=== PATIENT | female | born 1940 | race Caucasian/White ===

== ENCOUNTER 2020-04-03 10:20 | Emergency (ER) | payer MEDICARE, SELFPAY ==
--- NOTE | 2020-04-03 10:26 | ED.SOB ---
HPI - SOB/Dyspnea General Chief Complaint: Dyspnea Stated Complaint: SOB Time Seen by Provider: 04/03/20 10:26 Source: patient Mode of arrival: ambulatory Limitations: no limitations History of Present Illness MD elicited complaint: shortness of breath and cough Pertinent past history: pneumonia (dx with pneumonia on Sunday at [facility] started on zpack comleted no relief, negative COVID at that time) Onset (ago): day(s) (6 days agod) Context: recent illness Timing: constant Severity: mild Exacerbating factors: exertion Relieving factors: nothing Associated symptoms: cough Treatment prior to arrival: other (antibiotic) Related Data Home Medications Medication Instructions Recorded Confirmed anastrozole 1 mg tablet 1 mg PO DAILY 03/08/20 03/30/20 ascorbate calcium (vitamin C) 500 600 mg PO DAILY tab 03/08/20 03/30/20 mg tablet aspirin 81 mg tablet,delayed 81 mg PO DAILY 03/08/20 03/30/20 release biotin 5 mg capsule 5 mg PO DAILY 03/08/20 03/30/20 cholecalciferol (vitamin D3) 25 25 mcg PO DAILY 03/08/20 03/30/20 mcg (1,000 unit) tablet famotidine 10 mg tablet 10 mg PO DAILY 03/08/20 03/30/20 meclizine 25 mg tablet mg PO 03/08/20 03/30/20 simvastatin 10 mg tablet 10 mg PO BEDTIME 03/08/20 03/30/20 simvastatin 20 mg tablet 20 mg PO BEDTIME 03/08/20 03/30/20 Previous Rx's Medication Instructions Recorded diclofenac sodium 50 mg 50 mg PO DAILY PRN #90 cap 03/16/20 tablet,delayed release spironolactone 50 mg tablet 50 mg PO DAILY #90 tab 03/29/20 doxycycline hyclate 100 mg PO BID 7 Days #14 tab 04/03/20 Allergies Allergy/AdvReac Type Severity Reaction Status Date / Time acetaminophen [Percocet] Allergy Unknown Rash Verified 03/29/20 09:40 oxycodone [Percocet] Allergy Unknown Agitated Verified 03/29/20 09:40 latex Allergy Unknown rash Uncoded 03/11/20 08:59 Review of Systems Review of Systems: Constitutional : No Fever, No Chills ENT/Mouth : No sore throat, No Rhinorrhea, No Swallowing Difficulty Eyes: No Eye Pain, No Swelling, No Redness Cardiovascular : No Chest Pain, positive SOB, No Orthopnea, no Edema Respiratory : pos Cough, No Sputum, No Wheezing, positive dyspnea Gastrointestinal : No Nausea, No Vomiting, No Diarrhea, No abdominal Pain, No Hematochezia, No Melena Genitourinary : No Dysuria, No Urinary Frequency, No Hematuria Musculoskeletal : No joint pain, No Myalgias Skin : No Skin Lesions, No rash Neuro : No Weakness, No Numbness, No Dizziness, No Headache Psych : No Anxiety/Panic, No Depression Heme/Lymph: No Bruising, No Lymphadenopathy Endocrine : No Polyuria, No Polydipsia All other systems reviewed and are negative [facility] Past Medical History Attestation statement: The following information was validated with the patient. Medical History Breast cancer Hyperlipidemia Peripheral vascular disease Surgical History No history of previous surgery Family History Family History Mother No problems noted. Father No problems noted. Social History Social History Alcohol intake: never Smoking Status: Never smoker Smoked in Last 30 Days: No Use of substances other than those prescribed or required for medical reasons: No Advance Directives: No Advance Directives Information Provided: Yes Physical Exam Vital Signs: Vital Signs: Last Vital Signs Temp 98.1 F 04/03/20 15:25 Pulse 67 04/03/20 15:25 Resp 14 04/03/20 15:25 BP 137/74 04/03/20 15:25 Pulse Ox 96 04/03/20 15:25 Body Mass Index 18.8 Appearance: Alert. Oriented X3. No acute distress. Eyes: Pupils equal, round and reactive to light. ENT: Pharynx normal. Neck: Normal inspection. Neck supple. CVS: Normal heart rate and rhythm. Pulses normal. Respiratory: No respiratory distress. Breath sounds mild end exp wheezes R side, no rales, no resp distress, no pleuritic pain Abdomen: Soft and non-tender. Skin: Skin warm and dry. Normal skin color. Normal skin turgor. Extremities: No lower extremity edema. No calf ttp Neuro: Oriented X 3. No motor deficit. No sensory deficit. Course Course Course Narrative: given WBC count, CT chest for pneumonia ordered, labs, cultures, empiric ceftriaxone VS stable, no hypoxia, CT scan looks like COVID/atypical pneumonia, lactic negative, afebrile, no abdominal pain, negative urine just feels weak/malaise, only has elevated WBC no signs of sepsis other than WBC count but patient is not toxic, will start on doxy and send home with COVID precautions, patient has no GI or symptoms, no abdominal ttp no vomiting or diarrhea MDM - SOB/Dyspnea MDM Narrative Medical decision making narrative: 80 yo female with URI symptoms cough had CXR on Sunday dx with pneumonia on left side started on zpack negative rapid COVID at that time comes in still doesn't feel great and has cough - no resp distress, faint end exp wheezes, no hypoxia/tachycardia/CP to suggest PE at this time will obtain EKG, basic labs, CXR, COVID swab, albuterol INH Lab Data Result diagrams: 04/03/20 15:31 04/03/20 10:51 Labs: Lab Results 04/03/20 04/03/20 04/03/20 Range/Units 10:51 10:51 10:51 WBC 22.2 H (4.8-10.8) X10*3/uL RBC 4.50 (4.20-5.50) X10*6/uL Hgb 13.6 (12.0-16.0) g/dl Hct 41.2 (37-47) % MCV 91.6 (80-98) fL MCH 30.2 (27.0-33.0) pg MCHC 33.0 (31.0-35.0) g/dl RDW 12.0 (11.0-16.0) % Plt Count 249 (160-400) X10*3/uL MPV 10.6 (9.4-12.3) fL Immature Gran % (Auto) 0.5 H (0.0-0.4) % Neut % (Auto) 90.7 H (45-73) % Lymph % (Auto) 4.5 L (20-40) % [place] % (Auto) 3.8 (2-11) % Eos % (Auto) 0.3 (0-4) % Baso % (Auto) 0.2 (0-2) % Lymph # (Auto) 1.0 L (1.2-4.9) X10*3/uL [place] # (Auto) 0.8 (0.1-1.2) X10*3/uL Eos # (Auto) 0.1 (0.0-0.4) X10*3/uL Baso # (Auto) 0.0 (0.0-0.2) X10*3/uL Abs Immat Gran (auto) 0.10 H (0.00-0.03) X10*3/uL Absolute Neuts (auto) 20.2 H (2.0-8.3) X10*3/uL Absolute Nucleated RBC 0.000 (0.0-0.012) X10*3/uL Nucleated RBC % (auto) 0.0 (0.0-0.2) /100WBC Hold Blue Top SEE NOTE Sodium (135-145) mmol/L Potassium (3.3-5.1) mmol/l Chloride (96-108) mmol/L Carbon Dioxide (22-29) mmol/L Anion Gap (12-20) BUN (9-16) mg/dL Creatinine (0.5-1.4) mg/dL Estim Creat Clear Calc Estimated GFR Random Glucose (60-115) mg/dL Lactic Acid (0.5-2.0) mmol/L Calcium (8.4-10.2) mg/dL Troponin I High Sens (<3.5-17.0) ng/L Urine Color Urine Appearance Urine pH (5.0-8.0) Ur Specific Lynn (1.005-1.025) Urine Protein (NEG-TRACE) MG/DL Urine Glucose (UA) (NEG) MG/DL Urine Ketones (NEG) MG/DL Urine Blood (NEG) Urine Nitrite (NEG) Ur Leukocyte Esterase (NEG) Urine RBC (0) /HPF Urine WBC (0-4) /HPF Ur Squamous Epith Cells /LPF Urine Bacteria /LPF Coronavirus (PCR) NEGATIVE (Negative) Influenza Type A (PCR) NEGATIVE (Negative) Influenza Type B (PCR) NEGATIVE (Negative) RSV RNA Qual (PCR) NEGATIVE (Negative) 12/19/20 12/19/20 12/19/20 Range/Units 10:51 10:51 12:00 WBC (4.8-10.8) X10*3/uL RBC (4.20-5.50) X10*6/uL Hgb (12.0-16.0) g/dl Hct (37-47) % MCV (80-98) fL MCH (27.0-33.0) pg MCHC (31.0-35.0) g/dl RDW (11.0-16.0) % Plt Count (160-400) X10*3/uL MPV (9.4-12.3) fL Immature Gran % (Auto) (0.0-0.4) % Neut % (Auto) (45-73) % Lymph % (Auto) (20-40) % [place] % (Auto) (2-11) % Eos % (Auto) (0-4) % Baso % (Auto) (0-2) % Lymph # (Auto) (1.2-4.9) X10*3/uL [place] # (Auto) (0.1-1.2) X10*3/uL Eos # (Auto) (0.0-0.4) X10*3/uL Baso # (Auto) (0.0-0.2) X10*3/uL Abs Immat Gran (auto) (0.00-0.03) X10*3/uL Absolute Neuts (auto) (2.0-8.3) X10*3/uL Absolute Nucleated RBC (0.0-0.012) X10*3/uL Nucleated RBC % (auto) (0.0-0.2) /100WBC Hold Blue Top Sodium 139 (135-145) mmol/L Potassium 4.3 (3.3-5.1) mmol/l Chloride 106 (96-108) mmol/L Carbon Dioxide 26 (22-29) mmol/L Anion Gap 11 L (12-20) BUN 22 H (9-16) mg/dL Creatinine 0.84 (0.5-1.4) mg/dL Estim Creat Clear Calc 41.3 Estimated GFR > 60 Random Glucose 104 (60-115) mg/dL Lactic Acid 0.8 (0.5-2.0) mmol/L Calcium 9.3 (8.4-10.2) mg/dL Troponin I High Sens 3.9 (<3.5-17.0) ng/L Urine Color Urine Appearance Urine pH (5.0-8.0) Ur Specific Lynn (1.005-1.025) Urine Protein (NEG-TRACE) MG/DL Urine Glucose (UA) (NEG) MG/DL Urine Ketones (NEG) MG/DL Urine Blood (NEG) Urine Nitrite (NEG) Ur Leukocyte Esterase (NEG) Urine RBC (0) /HPF Urine WBC (0-4) /HPF Ur Squamous Epith Cells /LPF Urine Bacteria /LPF Coronavirus (PCR) (Negative) Influenza Type A (PCR) (Negative) Influenza Type B (PCR) (Negative) RSV RNA Qual (PCR) (Negative) 04/03/20 04/03/20 Range/Units 14:42 15:31 WBC 20.7 H (4.8-10.8) X10*3/uL RBC 4.33 (4.20-5.50) X10*6/uL Hgb 12.9 (12.0-16.0) g/dl Hct 39.5 (37-47) % MCV 91.2 (80-98) fL MCH 29.8 (27.0-33.0) pg MCHC 32.7 (31.0-35.0) g/dl RDW 12.1 (11.0-16.0) % Plt Count 235 (160-400) X10*3/uL MPV 10.5 (9.4-12.3) fL Immature Gran % (Auto) (0.0-0.4) % Neut % (Auto) (45-73) % Lymph % (Auto) (20-40) % [place] % (Auto) (2-11) % Eos % (Auto) (0-4) % Baso % (Auto) (0-2) % Lymph # (Auto) (1.2-4.9) X10*3/uL [place] # (Auto) (0.1-1.2) X10*3/uL Eos # (Auto) (0.0-0.4) X10*3/uL Baso # (Auto) (0.0-0.2) X10*3/uL Abs Immat Gran (auto) (0.00-0.03) X10*3/uL Absolute Neuts (auto) (2.0-8.3) X10*3/uL Absolute Nucleated RBC 0.000 (0.0-0.012) X10*3/uL Nucleated RBC % (auto) 0.0 (0.0-0.2) /100WBC Hold Blue Top Sodium (135-145) mmol/L Potassium (3.3-5.1) mmol/l Chloride (96-108) mmol/L Carbon Dioxide (22-29) mmol/L Anion Gap (12-20) BUN (9-16) mg/dL Creatinine (0.5-1.4) mg/dL Estim Creat Clear Calc Estimated GFR Random Glucose (60-115) mg/dL Lactic Acid (0.5-2.0) mmol/L Calcium (8.4-10.2) mg/dL Troponin I High Sens (<3.5-17.0) ng/L Urine Color YELLOW Urine Appearance HAZY Urine pH 5.5 (5.0-8.0) Ur Specific Lynn >= 1.030 H (1.005-1.025) Urine Protein NEG (NEG-TRACE) MG/DL Urine Glucose (UA) NEG (NEG) MG/DL Urine Ketones NEG (NEG) MG/DL Urine Blood NEG (NEG) Urine Nitrite NEG (NEG) Ur Leukocyte Esterase 1+ H (NEG) Urine RBC 0 (0) /HPF Urine WBC 0-2 (0-4) /HPF Ur Squamous Epith Cells TRACE /LPF Urine Bacteria NONE /LPF Coronavirus (PCR) (Negative) Influenza Type A (PCR) (Negative) Influenza Type B (PCR) (Negative) RSV RNA Qual (PCR) (Negative) ECG Data Attestation: I personally reviewed and interpreted this ECG as follows: ECG interpretation date: 04/03/20 ECG interpretation time: 10:54 Interpretation: Rate: 81 Rhythm: NSR Tell: normal Normal P waves. Normal WANG. Normal QRS complex. ST T wave : no MARCE, non specific qTC:normal prior studies: artifact, no acute ischemia The study has been interpreted contemporaneously by me. . Discharge Plan Discharge Clinical Impression: Pneumonia due to virus, COVID-19 Leukocytosis Qualifiers: Leukocytosis type: unspecified Qualified Code(s): D72.829 - Elevated white blood cell count, unspecified Patient Disposition: Home, Self-Care Instructions: Pneumonitis (ED) Additional Instructions: return to ED for any worsening symptoms or concerns YOUR COVID SWAB WAS NEGATIVE BUT YOUR CT SCAN LOOKS LIKE COVID, WILL START YOU ON ANTIBIOTICS, YOUR WHITE BLOOD CELL COUNT WAS ELEVATED BUT NO OTHER CONCERNING LABS AT THIS TIME PLEASE HAVE IT RECHECKED BY SUNDAY OR SUNDAY Prescriptions: New doxycycline hyclate 100 mg tablet 100 mg PO BID 7 Days Qty: 14 RF: 0 No Action diclofenac sodium 50 mg tablet,delayed release (DR/EC) 50 mg PO DAILY PRN (Reason: pain) Qty: 90 RF: 0 meclizine 25 mg tablet PO RF: 0 simvastatin 20 mg tablet 20 mg PO BEDTIME RF: 0 anastrozole 1 mg tablet 1 mg PO DAILY RF: 0 simvastatin 10 mg tablet 10 mg PO BEDTIME RF: 0 famotidine 10 mg tablet 10 mg PO DAILY RF: 0 aspirin 81 mg tablet,delayed release (DR/EC) 81 mg PO DAILY RF: 0 cholecalciferol (vitamin D3) 25 mcg (1,000 unit) tablet 25 mcg PO DAILY RF: 0 ascorbate calcium (vitamin C) 500 mg tablet 600 mg PO DAILY RF: 0 biotin 5 mg capsule 5 mg PO DAILY RF: 0 spironolactone 50 mg tablet 50 mg PO DAILY Qty: 90 RF: 1 Referrals: Armond Dasilva MD [Primary Care Provider] - 2 days (if not better)
[2020-04-03 10:31] VITALS: BP 158/88; PULSE 89; RESP 18; O2SAT 97; BMI 18.8
--- NOTE | 2020-04-03 10:33 | XR_ITS ---
EXAMINATION: XR CHEST CLINICAL INFORMATION: Dyspnea, cough. COMPARISON: 04/20/2015 chest radiographs. TECHNIQUE: Frontal view of the chest was obtained. FINDINGS: Subtle increased interstitial markings are seen bilaterally. No definitive focal infiltrate or pleural effusion is seen. The heart and mediastinal structures are unremarkable. Surgical clips overlie the left axilla without interval change. XR/XR chest 1V IMPRESSION: Subtle increased interstitial markings are nonspecific and may be secondary to differences in technique. A mild infectious/inflammatory process could not be completely excluded. No definitive focal infiltrate or pleural effusion. If symptoms persist or worsen, short-term repeat radiographic follow-up is recommended as clinically indicated to better assess for more acute change.
--- NOTE | 2020-04-03 10:33 | ECG_ITS ---
Test Reason : SOB Blood Pressure : / mmHG Vent. Rate : 081 BPM Atrial Rate : 081 BPM P-R Int : 180 ms QRS Dur : 074 ms QT Int : 368 ms P-R-T Axes : 037 017 033 degrees QTc Int : 427 ms Normal sinus rhythm Normal ECG No previous ECGs available Referred By: Nikki Ortez Electronically Signed By:Usama Benavides
[2020-04-03] MEDS: Albuterol Sulfate 90 MCG 8 GM INHALER 2 PUFF INHALE (10:49)
[2020-04-03 11:02] LABS: Basophils Percent Auto 0.2 % (0-2); Eosinophils Absolute Auto 0.1 X10*3/uL (0.0-0.4); Eosinophils Percent Auto 0.3 % (0-4); Hematocrit 41.2 % (37-47); Hemoglobin 13.6 g/dl (12.0-16.0); Imm Gran Pct Auto 0.5 % (0.0-0.4); Lymphocytes Percent Auto 4.5 % (20-40); MANUAL DIFF FLAG NO; Mean Corpuscular Hemoglobin 30.2 pg (27.0-33.0); Mean Corpuscular Volume 91.6 fL (80-98); Mean Platelet Volume 10.6 fL (9.4-12.3); Monocytes Absolute Auto 0.8 X10*3/uL (0.1-1.2); Monocytes Percent Auto 3.8 % (2-11); Neutrophils Absolute Auto 20.2 X10*3/uL (2.0-8.3); Neutrophils Percent Auto 90.7 % (45-73); Platelet Count 249 X10*3/uL (160-400); SCAN SMEAR FLAG 1; White Blood Count 22.2 X10*3/uL (4.8-10.8)
[2020-04-03 11:28] LABS: Anion Gap 11 (12-20); Blood Urea Nitrogen 22 mg/dL (9-16); Calcium 9.3 mg/dL (8.4-10.2); Carbon Dioxide 26 mmol/L (22-29); Chloride 106 mmol/L (96-108); Creatinine Clr Calc Pharmacy 41.3; Estimated Glomerular Filt Rate > 60; Glucose Random 104 mg/dL (60-115); Potassium 4.3 mmol/l (3.3-5.1); Sodium 139 mmol/L (135-145)
[2020-04-03 11:33] LABS: Troponin-I High Sensitivity 3.9 ng/L (<3.5-17.0)
[2020-04-03 11:39] LABS: Influenza A PCR NEGATIVE (Negative); Influenza B PCR NEGATIVE (Negative); Resp Syncy Virus RNA Qual PCR NEGATIVE (Negative); SARS COV2 PCR INHOUSE NEGATIVE (Negative)
[2020-04-03 11:53] VITALS: BP 107/66; PULSE 77; RESP 16; TEMP 36.8; O2SAT 95
--- NOTE | 2020-04-03 11:56 | CT_ITS ---
EXAMINATION: CT chest wo con. CLINICAL INFORMATION: Reason for Exam WBC count 22, cough COMPARISON: No prior CT available for comparison. TECHNIQUE: Multidetector volumetric CT imaging of the chest was done. Axial MIP volume rendering provided. Sagittal and coronal reformatted images were obtained. This CT examination was performed using dose optimization techniques as appropriate, variously including the following: *Automated exposure control *Adjustment of mA and/or kV according to patient size (this includes techniques or standardized protocols for targeted exams where dose is matched to indication/reason for exam; i.e. extremities or head) *Use of iterative reconstruction technique CONTRAST: Noncontrasted study. DLP: 192 mGy-cm FINDINGS: FREELANCE TRANSLATOR: LINES/TUBES: Director Personal reviewed, no lines. LUNGS: Lung parenchyma: Bilateral scattered patchy hazy groundglass interstitial peripheral and central opacities highly suspicious for interstitial pneumonia such as by atypical infection including possible Covid 19 infection. Lung nodules/masses: There is 5 mm nodule right upper lobe image 8 series 4. There is 8 x 6 mm nodule right upper lobe image 175 series 5. There are other smaller densities. AIRWAYS: Trachea and bronchi are normal. PLEURA: No pleural effusion or pneumothorax. MEDIASTINUM AND ROSALINDA: There are lymph nodes in the mediastinum and rosalinda difficult to visualize due to lack of contrast, these don't seem to be significantly enlarged. No mediastinal mass. VESSELS: HEART AND PERICARDIUM: Ascending aorta is 3.2 cm. Heart is normal in size. No pericardial effusion. Pulmonary arteries are normal in size. LOWER NECK, AXILLA: The visualized thyroid gland is unremarkable. No axillary mass or adenopathy. VISUALIZED ABDOMEN: Unremarkable CHEST WALL AND BONES: No chest wall mass. The visualized bony thorax is within normal limits. CT/CT chest wo con IMPRESSION: There are diffuse interstitial groundglass patchy opacities central and peripheral, the pattern is suspicious for possible interstitial pneumonitis including possible viral pneumonia/COVID 19 infection. Please correlate clinically. No suspicious lung mass. There are subcentimeter lung nodules largest 7 mm nodule. Various management parameters for solitary pulmonary nodules are in the literature. According to the UPDATED 2017 Fleischner Society recommendations, the advised follow-up imaging for a single 6-8 mm solid nodule is: LOW RISK PATIENT: CT at 6-12 months, then consider CT at 18-24 months. HIGH RISK PATIENT: CT at 6-12 months, then at 18-24 months. Reference: Guidelines for Management of Incidental Pulmonary Nodules Detected on CT Images: From the Fleischner Society 2017. (Referring physician staff is being called, to be alerted of the above findings and recommendations.) Tc
[2020-04-03 12:23] LABS: Lactic Acid 0.8 mmol/L (0.5-2.0)
[2020-04-03] MEDS: cefTRIAXone sodium 1 GM in 0.9 % Sodium Chloride 50 ML IV (12:35)
[2020-04-03 14:55] LABS: Glucose Urine UA NEG (NEG); Leukocyte Esterase Urine 1+ (NEG); Nitrite Urine NEG (NEG); PH 5.5 (5.0-8.0); Specific Gravity - Urine >= 1.030 (1.005-1.025); Urine Blood NEG (NEG); Urine Ketones NEG (NEG); Urine Protein NEG (NEG-TRACE)
[2020-04-03 15:11] LABS: Appearance Urine HAZY; Color Urine YELLOW
[2020-04-03 15:17] LABS: RBC Urine 0 /HPF (0); Squamous Epithelial Cell Urine TRACE /LPF; WBC Urine 0-2 /HPF (0-4)
[2020-04-03 15:25] VITALS: BP 137/74; PULSE 67; RESP 14; TEMP 36.7; O2SAT 96
[2020-04-03 15:37] LABS: Hematocrit 39.5 % (37-47); Hemoglobin 12.9 g/dl (12.0-16.0); Mean Corpuscular HGB Conc 32.7 g/dl (31.0-35.0); Mean Corpuscular Hemoglobin 29.8 pg (27.0-33.0); Mean Corpuscular Volume 91.2 fL (80-98); Mean Platelet Volume 10.5 fL (9.4-12.3); Platelet Count 235 X10*3/uL (160-400); Red Blood Count 4.33 X10*6/uL (4.20-5.50); Red Cell Distribution Width 12.1 % (11.0-16.0); White Blood Count 20.7 X10*3/uL (4.8-10.8)
[2020-04-03 16:06] LABS: D Dimer 610 NG/ML
[2020-04-03 16:07] LABS: Lactate Dehydrogenase 191 U/L (122-220)
[2020-04-03 16:29] LABS: Ferritin 105 ng/mL (10-250); Procalcitonin 0.06 ng/mL
== END 2020-04-03 16:38 | disposition home or self-care (01) ==
PROVIDERS: Emergency Provider Emergency Medicine; PCP Internal Medicine
DX: J12.89 Other viral pneumonia (principal); R06.00 Dyspnea, unspecified; D72.829 Elevated white blood cell count, unspecified; Z20.828 Contact with and (suspected) exposure to other viral communicable diseases
CPT/HCPCS: 0241U; 36415; 71045; 71250; 80048; 81001; 82728; 83605; 83615; 84145; 84484; 85025; 85027; 85379; 87040; 87086; 93005; 96365; 99284; J0696

== ENCOUNTER 2020-04-12 11:18 | Outpatient (REF) | payer MEDICARE, SELFPAY ==
--- NOTE | 2020-04-12 11:24 | XR_ITS ---
EXAMINATION: XR CHEST CLINICAL INFORMATION: Pneumonia COMPARISON: CT chest 04/03/2020 TECHNIQUE: 2 views of the chest were obtained. FINDINGS: The lungs are hyperinflated but no visible acute consolidation seen. There is ill-defined patchy opacity left midlung and left lower lobe. No evidence of pleural effusion. The heart size upper vascularity is normal. There are surgical shilpa along left lateral chest wall likely from later breast surgery. Moderate spondylosis seen throughout dorsal spine. No lytic process. XR/XR chest 2V IMPRESSION: Minimal patchy opacity left midlung and left lower lobe with mild tenting of left hemidiaphragm. Question residual changes from previous infection seen on previous CT chest 04/03/2020.
[2020-04-12 14:00] LABS: Hematocrit 46.9 % (37-47); Hemoglobin 14.7 g/dl (12.0-16.0); Mean Corpuscular HGB Conc 31.3 g/dl (31.0-35.0); Mean Corpuscular Hemoglobin 29.6 pg (27.0-33.0); Mean Corpuscular Volume 94.4 fL (80-98); Mean Platelet Volume 11.6 fL (9.4-12.3); Platelet Count 281 X10*3/uL (160-400); Red Blood Count 4.97 X10*6/uL (4.20-5.50); Red Cell Distribution Width 12.4 % (11.0-16.0); White Blood Count 9.5 X10*3/uL (4.8-10.8)
[2020-04-12 14:38] LABS: Anion Gap 15 (12-20); Blood Urea Nitrogen 24 mg/dL (9-16); Calcium 9.3 mg/dL (8.4-10.2); Carbon Dioxide 25 mmol/L (22-29); Chloride 103 mmol/L (96-108); Estimated Glomerular Filt Rate 59; Glucose Random 87 mg/dL (60-115); Potassium 4.2 mmol/l (3.3-5.1); Sodium 139 mmol/L (135-145)
== END 2020-04-12 11:19 | disposition home or self-care (01) ==
LOC: HO.HMGCX 11:18
PROVIDERS: PCP Internal Medicine; Visit Provider Internal Medicine
DX: Z20.828 Contact with and (suspected) exposure to other viral communicable diseases (principal); J18.9 Pneumonia, unspecified organism
CPT/HCPCS: 36415; 71046; 80048; 85027; 86140

== ENCOUNTER 2020-04-14 11:03 | Outpatient (REF) | payer MEDICARE, SELFPAY | END 2020-04-14 11:04 | disposition home or self-care (01) | LOC: HO.HMGCLDS 11:03 | PROVIDERS: PCP Internal Medicine; Visit Provider Internal Medicine | DX: Z20.828 Contact with and (suspected) exposure to other viral communicable diseases (principal) | CPT/HCPCS: U0003 ==

== ENCOUNTER 2020-04-26 15:51 | Outpatient (REF) | payer MEDICARE, SELFPAY ==
--- NOTE | 2020-04-26 16:04 | XR_ITS ---
EXAMINATION: XR CHEST CLINICAL INFORMATION: Follow-up pneumonia COMPARISON: Previous chest x-rays most recent 04/12/2020 TECHNIQUE: 2 views of the chest were obtained. FINDINGS: The cardiac and mediastinal contours are stable. The lungs are clear. There is no pleural effusion or pneumothorax. There are surgical clips in the left axilla. There are degenerative changes of the spine. XR/XR chest 2V IMPRESSION: Resolved infiltrates from March 2020. No evidence of pneumonia seen.
[2020-04-26 17:05] LABS: Hematocrit 45.2 % (37-47); Hemoglobin 14.2 g/dl (12.0-16.0); Mean Corpuscular HGB Conc 31.4 g/dl (31.0-35.0); Mean Corpuscular Hemoglobin 29.3 pg (27.0-33.0); Mean Corpuscular Volume 93.2 fL (80-98); Mean Platelet Volume 12.1 fL (9.4-12.3); Platelet Count 143 X10*3/uL (160-400); Red Blood Count 4.85 X10*6/uL (4.20-5.50); Red Cell Distribution Width 12.8 % (11.0-16.0); White Blood Count 5.8 X10*3/uL (4.8-10.8)
[2020-04-26 18:44] LABS: Erythrocyte Sedimentation Rate 6 MM/HR (0-20)
[2020-04-27 04:20] LABS: SARS COV2 IgG Negative (Negative)
== END 2020-04-26 15:52 | disposition home or self-care (01) ==
LOC: HO.LAB 15:51
PROVIDERS: PCP Internal Medicine; Visit Provider Internal Medicine
DX: Z20.822 Contact with and (suspected) exposure to COVID-19 (principal); Z11.9 Encounter for screening for infectious and parasitic diseases, unspecified
CPT/HCPCS: 36415; 71046; 85027; 85652; 86769

== ENCOUNTER → 2020-04-27 10:21 | Outpatient (BNVA) | payer MEDICARE, SELFPAY | PROVIDERS: PCP Internal Medicine; Visit Provider Surgery Vascular Surgery | DX: I73.9 Peripheral vascular disease, unspecified (principal) | CPT/HCPCS: 99202 ==

== ENCOUNTER 2020-05-13 09:48 | Outpatient (REF) | payer MEDICARE, SELFPAY ==
--- NOTE | 2020-05-13 | US_ITS ---
EXAMINATION: COLOR-FLOW DUPLEX IMAGING OF THE BILATERAL LOWER EXTREMITY ARTERIAL SYSTEM. VELOCITY MEASUREMENTS THROUGHOUT THE FEMORAL ARTERIES WITH ANKLE-BRACHIAL PERIPHERAL ARTERIAL TESTING. CLINICAL INFORMATION: This is an 80-year-old female with peripheral vascular disease. Hypertension. Hyperlipidemia. Interventional Radiologist: Derrick Nina M.D., F.S.I.R., F.A.C.R. RIGHT FEMORAL RUNOFF VELOCITIES: The right common femoral artery measures 113 cm/s and biphasic. The right profunda femoral artery is 54 cm/s and is triphasic. Right proximal superficial femoral artery measures 70 cm/s and triphasic. Mid superficial femoral artery is 70 cm/s and triphasic. Distal right superficial femoral artery measures 72 cm/s and is triphasic. Right popliteal velocity measures 39 cm/s and is triphasic. The posterior tibial artery velocity measures 75 cm/s and was triphasic. The right ankle-brachial index is 0.97. LEFT FEMORAL RUNOFF VELOCITIES: The left common femoral artery measures 53 cm/s and triphasic. The left profunda femoral artery is 54 cm/s and is biphasic. Left proximal superficial femoral artery measures 55 cm/s and biphasic. Mid superficial femoral artery is 46 cm/s and biphasic. Distal left superficial femoral artery measures 385 cm/s and is biphasic. Left popliteal velocity measures 281 cm/s and is biphasic. The posterior tibial artery velocity measures 36 cm/s and was biphasic. The left ankle-brachial index is 0.87. US/US DAVE complete IMPRESSION: 1. There is no right lower extremity hemodynamically significant stenosis. 2. There is a high-grade hemodynamically significant stenosis in the distal left superficial femoral artery.
--- NOTE | 2020-05-13 09:53 | US_ITS ---
EXAMINATION: COLOR-FLOW DUPLEX IMAGING OF THE BILATERAL LOWER EXTREMITY ARTERIAL SYSTEM. VELOCITY MEASUREMENTS THROUGHOUT THE FEMORAL ARTERIES WITH ANKLE-BRACHIAL PERIPHERAL ARTERIAL TESTING. CLINICAL INFORMATION: This is an 80-year-old female with peripheral vascular disease. Hypertension. Hyperlipidemia. Interventional Radiologist: Derrick Nina M.D., F.S.I.R., F.A.C.R. RIGHT FEMORAL RUNOFF VELOCITIES: The right common femoral artery measures 113 cm/s and biphasic. The right profunda femoral artery is 54 cm/s and is triphasic. Right proximal superficial femoral artery measures 70 cm/s and triphasic. Mid superficial femoral artery is 70 cm/s and triphasic. Distal right superficial femoral artery measures 72 cm/s and is triphasic. Right popliteal velocity measures 39 cm/s and is triphasic. The posterior tibial artery velocity measures 75 cm/s and was triphasic. The right ankle-brachial index is 0.97. LEFT FEMORAL RUNOFF VELOCITIES: The left common femoral artery measures 53 cm/s and triphasic. The left profunda femoral artery is 54 cm/s and is biphasic. Left proximal superficial femoral artery measures 55 cm/s and biphasic. Mid superficial femoral artery is 46 cm/s and biphasic. Distal left superficial femoral artery measures 385 cm/s and is biphasic. Left popliteal velocity measures 281 cm/s and is biphasic. The posterior tibial artery velocity measures 36 cm/s and was biphasic. The left ankle-brachial index is 0.87. US/US arterial duplex LE BI IMPRESSION: 1. There is no right lower extremity hemodynamically significant stenosis. 2. There is a high-grade hemodynamically significant stenosis in the distal left superficial femoral artery.
== END 2020-05-13 09:49 | disposition home or self-care (01) ==
LOC: HO.US 09:48
PROVIDERS: Visit Provider Surgery Vascular Surgery
DX: I70.213 Atherosclerosis of native arteries of extremities with intermittent claudication, bilateral legs (principal)
CPT/HCPCS: 93923; 93925

== ENCOUNTER 2020-05-24 10:48 | Outpatient (REF) | payer MEDICARE, SELFPAY ==
--- NOTE | ~2020-05-24 | XR_ITS ---
EXAMINATION: Hand and WRIST X-RAY CLINICAL INFORMATION: Injury COMPARISON: None TECHNIQUE: 3 views of the left hand and wrist FINDINGS: There is severe arthritis at the IP joints and first [facility] joint with joint space narrowing and osteophyte formation. There is slight subluxation at the PIP joint of the third finger. This also joint space narrowing at the MCP joints. No fracture or dislocation is seen. There is periarticular soft tissue swelling adjacent to the IP joints. XR/XR hand wrist LT IMPRESSION: Severe arthritis. No fracture or dislocation.
== END 2020-05-24 10:49 | disposition home or self-care (01) ==
LOC: HO.HMGCX 10:48
PROVIDERS: PCP Internal Medicine; Visit Provider Nurse Practitioner Family
DX: S69.92XA Unspecified injury of left wrist, hand and finger(s), initial encounter (principal)
CPT/HCPCS: 73110; 73130

== ENCOUNTER → 2020-05-25 15:03 | Outpatient (BNVA) | payer MEDICARE, SELFPAY | PROVIDERS: Visit Provider Surgery Vascular Surgery | DX: I73.9 Peripheral vascular disease, unspecified (principal) | CPT/HCPCS: Q3014 ==

== ENCOUNTER 2020-07-02 09:03 | Outpatient (REF) | payer MEDICARE, SELFPAY ==
--- NOTE | ~2020-07-02 | CT_ITS ---
EXAMINATION: CT CHEST WITHOUT CONTRAST CLINICAL INFORMATION: Cough COMPARISON: Previous chest CT March 2020 and chest x-ray 04/26/2020 TECHNIQUE: Multidetector volumetric CT imaging of the chest was done. Axial MIP volume rendering provided. Sagittal and coronal reformatted images were obtained. This CT examination was performed using dose optimization techniques as appropriate, variously including the following: *Automated exposure control *Adjustment of mA and/or kV according to patient size (this includes techniques or standardized protocols for targeted exams where dose is matched to indication/reason for exam; i.e. extremities or head) *Use of iterative reconstruction technique DLP: 99 mGy-cm FINDINGS: LUNGS: There is biapical pleural and parenchymal scarring. There is a 4 mm right upper lobe nodule axial image 88 series 7 that is stable. There is a 5 mm right upper lobe nodule axial image 104 series 7 that is stable. There is scarring or chronic subsegmental atelectasis in the superior segment of the left lower lobe axial image 157 series 7 that is stable. There is a 3 mm right upper lobe nodule axial image 222 series 7 that is stable. There is a 4 mm right lower lobe nodule axial image 254 series 7 that is stable. There is a 3 mm right lower lobe nodule axial image 285 series 7 that is stable. There is a 4 mm heterogeneous right lower lobe nodule axial image 328 series 7 that is stable. There is a 4 x 6 mm left lower lobe nodule axial image 346 series 7. This is stable in size. This appears more solid and less cystic and reticular compared to March 2020 exam.. There is a 3 mm right lower lobe nodule axial image 365 series 7 that is stable. There is a 3 mm peripheral left lower lobe nodule and adjacent pleural thickening axial 459 series 7 that is stable. There are increased peripheral markings in the anterior left upper lobe, question related to previous chest wall radiation. The previously identified 8 x 6 mm central right upper lobe nodule axial image 172 series 5 is no longer seen. The diffuse areas of groundglass opacity on March 2020 exam are no longer seen. MEDIASTINUM: The mediastinum is otherwise normal. PLEURA: There is mild coronary artery and aortic valve calcification. There is no pleural effusion. No pleural mass or thickening. AXILLA: There are surgical clips in the left axilla. No chest wall mass or enlarged axillary lymph nodes are seen. UPPER ABDOMEN: Unremarkable. OSSEOUS STRUCTURES: There are degenerative changes of the spine. CT/CT chest wo con IMPRESSION: Resolved diffuse groundglass opacities and dominant 8 x 6 mm right upper lobe nodule compared to March 2020 exam. There are numerous other smaller pulmonary nodules, one of which may be more solid than seen on prior exam. Chest CT follow-up in 6-12 months should be considered. Mild coronary artery and aortic valve calcification.
== END 2020-07-02 09:04 | disposition home or self-care (01) ==
LOC: HO.CT 09:03
PROVIDERS: Visit Provider Internal Medicine
DX: R05 Cough (principal)
CPT/HCPCS: 71250

== ENCOUNTER 2020-09-20 10:36 | Outpatient (REF) | payer MEDICARE, SELFPAY ==
[2020-09-20 11:42] LABS: Hemoglobin 13.6 g/dl (12.0-16.0); Mean Corpuscular HGB Conc 32.4 g/dl (31.0-35.0); Mean Corpuscular Hemoglobin 29.8 pg (27.0-33.0); Mean Corpuscular Volume 91.9 fL (80-98); Mean Platelet Volume 12.4 fL (9.4-12.3); Platelet Count 115 X10*3/uL (160-400); Red Blood Count 4.57 X10*6/uL (4.20-5.50); Red Cell Distribution Width 12.7 % (11.0-16.0); White Blood Count 4.8 X10*3/uL (4.8-10.8)
[2020-09-20 11:52] LABS: Alanine Aminotransferase 23 U/L (0-31); Albumin Level 3.9 g/dL (3.5-5.0); Alkaline Phosphatase 54 U/L (39-117); Anion Gap 11 (12-20); Aspartate Amino Transferase 25 U/L (5-31); Bilirubin Direct < 0.2 mg/dL (0.0-0.5); Bilirubin Total 0.6 mg/dL (0.0-1.0); Blood Urea Nitrogen 23 mg/dL (9-16); Calcium 9.3 mg/dL (8.4-10.2); Carbon Dioxide 27 mmol/L (22-29); Chloride 108 mmol/L (96-108); Cholesterol 155 mg/dL; Estimated Glomerular Filt Rate > 60; Glucose Random 120 mg/dL (60-115); HDL Cholesterol 49 mg/dL; LDL Cholesterol Calculated 85 mg/dl; Potassium 4.6 mmol/L (3.3-5.1); Sodium 141 mmol/L (135-145); Total Protein 6.5 g/dL (6.5-8.0); Triglycerides 107 mg/dL
[2020-09-20 12:02] LABS: Glucose Urine UA NEG (NEG); Leukocyte Esterase Urine NEG (NEG); Nitrite Urine NEG (NEG); PH 5.5 (5.0-8.0); Specific Gravity - Urine >= 1.030 (1.005-1.025); Urine Blood NEG (NEG); Urine Ketones 5 MG/DL (NEG); Urine Protein NEG (NEG-TRACE)
[2020-09-20 12:03] LABS: Appearance Urine HAZY; Color Urine YELLOW
[2020-09-20 12:15] LABS: Thyroid Stimulating Hormone 0.83 uIU/mL (0.32-4.0)
== END 2020-09-20 10:37 | disposition home or self-care (01) ==
LOC: HO.LAB 10:36
PROVIDERS: PCP Internal Medicine; Visit Provider Internal Medicine
DX: I73.9 Peripheral vascular disease, unspecified (principal); E78.5 Hyperlipidemia, unspecified
CPT/HCPCS: 36415; 80048; 80061; 80076; 81003; 84443; 85027

== ENCOUNTER 2020-11-18 09:13 | Outpatient (REF) | payer MEDICARE, SELFPAY ==
--- NOTE | ~2020-11-18 | US_ITS ---
EXAMINATION: COLOR-FLOW DUPLEX IMAGING OF THE BILATERAL LOWER EXTREMITY ARTERIAL SYSTEM. VELOCITY MEASUREMENTS THROUGHOUT THE FEMORAL ARTERIES WITH ANKLE-BRACHIAL PERIPHERAL ARTERIAL TESTING. Interventional Radiologist: Derrick Nina M.D., F.S.I.R., F.A.C.R. CLINICAL INFORMATION: This is an 80-year-old female with bilateral peripheral arterial disease. Hypertension. Hyperlipidemia. RIGHT FEMORAL RUNOFF VELOCITIES: The right common femoral artery measures 97 cm/s and triphasic. The right profunda femoral artery is 53 cm/s and is biphasic. Right proximal superficial femoral artery measures 81 cm/s and triphasic. Mid superficial femoral artery is 65 cm/s and biphasic. Distal right superficial femoral artery measures 62 cm/s and is triphasic. Right popliteal velocity measures 59 cm/s and is triphasic. The posterior tibial artery velocity measures 33 cm/s and was monophasic. The right DAVE is 0.95. LEFT FEMORAL RUNOFF VELOCITIES: The left common femoral artery measures 84 cm/s and triphasic. The left profunda femoral artery is 90 cm/s and is triphasic. Left proximal superficial femoral artery measures 61 cm/s and biphasic. Mid superficial femoral artery is 42 cm/s and biphasic. Distal left superficial femoral artery measures 47 cm/s and is triphasic. Left popliteal velocity measures 170 cm/s and is monophasic. There is a heavily calcified area on the dorsal surface of the popliteal artery which obscured is the deeper tissues. This area could not be evaluated for stenosis or velocity. An occlusion in this area could not be identified because of the heavy calcification. The posterior tibial artery velocity measures 16 cm/s and was monophasic. The left DAVE is 0.93. US/US arterial duplex LE BI IMPRESSION: 1. There is no hemodynamically significant stenosis in the right lower extremity. 2. There is mild hemodynamically significant stenosis in the left lower extremity. There may be hemodynamically significant disease in the left popliteal artery. This is difficult to visualize because of the heavy calcification due to severe atherosclerotic disease throughout the arteries.
== END 2020-11-18 09:14 | disposition home or self-care (01) ==
LOC: HO.US 09:13
PROVIDERS: PCP Internal Medicine; Visit Provider Surgery Vascular Surgery
DX: I70.213 Atherosclerosis of native arteries of extremities with intermittent claudication, bilateral legs (principal)
CPT/HCPCS: 93925

== ENCOUNTER → 2020-12-09 13:49 | Outpatient (BNVA) | payer MEDICARE, SELFPAY | PROVIDERS: PCP Internal Medicine; Referring Provider Internal Medicine; Visit Provider Surgery Vascular Surgery | DX: I73.9 Peripheral vascular disease, unspecified (principal); E78.5 Hyperlipidemia, unspecified; Z88.5 Allergy status to narcotic agent; Z91.040 Latex allergy status | CPT/HCPCS: 99212 ==

== ENCOUNTER 2020-12-27 | Outpatient (REF) | payer MEDICARE, SELFPAY | END 2020-12-27 00:01 | disposition home or self-care (01) | LOC: HO.LNP | PROVIDERS: Visit Provider Hospitalist | DX: Z20.822 Contact with and (suspected) exposure to COVID-19 (principal) | CPT/HCPCS: U0003; U0005 ==

== ENCOUNTER 2021-08-22 13:13 | Emergency (ER) | payer MEDICARE, SELFPAY ==
--- NOTE | ~2021-08-22 | XR_ITS ---
EXAMINATION: XR CHEST CLINICAL INFORMATION: Pneumonia COMPARISON: Chest CT on 07/02/2020 TECHNIQUE: Frontal view of the chest was obtained. FINDINGS: The cardiac silhouette is normal. There is mild diffuse bronchial wall thickening. There are no areas of consolidation. There are no pleural effusions or pneumothoraces. The bones and soft tissues are unremarkable for the patient's age. XR/XR chest 1V IMPRESSION: Bronchial wall thickening may be infectious and/or inflammatory in etiology.
--- NOTE | ~2021-08-22 | US_ITS ---
EXAMINATION: NONINVASIVE ASSESSMENT OF THE ARTERIES OF THE LEFT LOWER EXTREMITIES CLINICAL INFORMATION: Pain and cramping COMPARISON: Bilateral lower extremity arterial duplex on 11/18/2020 TECHNIQUE: duplex Doppler techniques with wave form analysis and measurement of velocities in the left common femoral, profunda femoral, superficial femoral, popliteal, tibial and peroneal arteries. The study was performed only at rest. FINDINGS: Common femoral artery: 103 cm/s, Multiphasic Profunda femoris artery: 95 cm/s, Multiphasic Superficial femoral artery (proximal): 51 cm/s, Multiphasic Superficial femoral artery (mid): 43 cm/s, monophasic Superficial femoral artery (distal): 28 cm/s, monophasic Proximal Popliteal artery: 25 cm/s, monophasic Distal popliteal artery: 276 cm/s, monophasic Mid posterior tibial artery: 11 cm/s, monophasic US/US arterial duplex LE LT IMPRESSION: Mild hemodynamically significant stenosis in the superficial femoral artery. Suspect significant stenosis of the popliteal artery given the change in velocities and significant calcified atherosclerotic plaque. This has not significantly changed since the prior ultrasound on 11/18/2020.
--- NOTE | ~2021-08-22 | US_ITS ---
EXAMINATION: US VENOUS ULTRASOUND WITH DOPPLER LOWER EXTREMITY, LEFT CLINICAL INFORMATION: Pain left calf. Assess for occult DVT COMPARISON: Left leg venous ultrasound with Doppler 09/01/2019 TECHNIQUE: Ultrasound of the deep veins is performed from the hip to the calf with compression sonography and color and pulse Doppler assessment. Spectral analysis with color-flow imaging is performed. FINDINGS: There is normal venous compression and respiratory variation and augmented flow. The visualized common femoral vein, superficial femoral vein, profunda femoral vein, popliteal vein, and the trifurcation region shows no evidence of deep venous thrombosis. No popliteal fossa cyst. US/US venous duplex LE LT IMPRESSION: No DVT demonstrated in the left lower extremity.
[2021-08-22 13:58] VITALS: BP 108/72; PULSE 78; RESP 20; TEMP 36.5; O2SAT 97; BMI 20.2
[2021-08-22 15:50] VITALS: BP 158/86; PULSE 70; RESP 18; O2SAT 95
--- NOTE | 2021-08-22 16:18 | ECG_ITS ---
Test Reason : WEAK Blood Pressure : / mmHG Vent. Rate : 066 BPM Atrial Rate : 066 BPM P-R Int : 210 ms QRS Dur : 088 ms QT Int : 426 ms P-R-T Axes : 038 002 051 degrees QTc Int : 446 ms Sinus rhythm with 1st degree A-V block Nonspecific T wave abnormality Abnormal ECG When compared with ECG of 03-APR-2020 10:45, NV interval has increased Nonspecific T wave abnormality, worse in Anterior leads Referred By: Gary Ortega Electronically Signed By:JAKE MCPHERSON MD
[2021-08-22 16:19] LABS: COVID-19 Test Negative (Negative); IDNOW Serial# 16C4AD1C; Influenza A Negative (Negative); Influenza B2 Negative (Negative)
[2021-08-22 17:02] LABS: Basophils Percent Auto 0.2 % (0-2); Imm Gran Abs Auto 0.02 X10*3/uL (0.00-0.03); Imm Gran Pct Auto 0.4 % (0.0-0.4); MANUAL DIFF FLAG SCAN; PLT CLUMP 1; Red Cell Distribution Width 12.7 % (11.0-16.0); SCAN SMEAR FLAG 1
[2021-08-22 17:03] LABS: Eosinophils Percent Auto 0.8 % (0-4); Hematocrit 43.8 % (37.0-47.0); Hemoglobin 14.1 g/dl (12.0-16.0); Lymphocytes Absolute Auto 1.1 X10*3/uL (1.2-4.9); Lymphocytes Percent Auto 21.3 % (20-40); Mean Corpuscular HGB Conc 32.2 g/dl (31.0-35.0); Mean Corpuscular Hemoglobin 29.5 pg (27.0-33.0); Mean Corpuscular Volume 91.6 fL (80.0-98.0); Mean Platelet Volume 11.8 fL (9.4-12.3); Monocytes Absolute Auto 0.2 X10*3/uL (0.1-1.2); Monocytes Percent Auto 4.4 % (2-11); Neutrophils Absolute Auto 3.8 x10*3/uL (2.0-8.3); Neutrophils Percent Auto 72.9 % (45-73); Red Blood Count 4.78 X10*6/uL (4.20-5.50)
[2021-08-22 17:21] LABS: Prothrombin Time 11.2 SEC (9.9-13.0)
[2021-08-22 17:23] LABS: Partial Thromboplastin Time 36.4 SEC (24.1-38.0)
[2021-08-22 17:29] LABS: B Type Natriuretic Peptide 21 pg/mL (<100); Troponin-I High Sensitivity 3.7 ng/L (<3.5-17.0)
[2021-08-22 17:31] LABS: Alanine Aminotransferase 25 U/L (0-31); Alkaline Phosphatase 53 U/L (39-117); Anion Gap 12 (12-20); Aspartate Amino Transferase 25 U/L (5-31); Bilirubin Total 0.2 mg/dL (0.0-1.0); Blood Urea Nitrogen 28 mg/dL (9-16); Calcium 9.5 mg/dL (8.4-10.2); Carbon Dioxide 26 mmol/L (22-29); Chloride 108 mmol/L (96-108); Creatinine Clr Calc Pharmacy 42.6; Estimated Glomerular Filt Rate > 60; Glucose Random 123 mg/dL (60-115); Platelet Count 133 X10*3/uL (160-400); Potassium 3.8 mmol/L (3.3-5.1); Sodium 142 mmol/L (135-145); Total Protein 6.9 g/dL (6.5-8.0); White Blood Count 5.4 X10*3/uL (4.8-10.8)
[2021-08-22 17:32] LABS: SLIDE REVIEW VERIFIED
[2021-08-22 17:33] LABS: D Dimer High Sensitivity 182 NG/ML
[2021-08-22 17:38] LABS: Magnesium 2.3 mg/dL (1.6-2.6)
--- NOTE | 2021-08-22 17:49 | ED.GENADULT ---
HPI - General Adult General Chief complaint: Extremity Injury, Lower Stated complaint: L leg pain Time Seen by Provider: 08/22/21 15:51 Source: patient Mode of arrival: ambulatory Limitations: no limitations History of Present Illness HPI narrative: 81 yold female with pmh of PVD, HTN, hyperlipidemeia, osteoarthrits presents to the ED for evaluation of LLE calf pain. patient states sunday she woke up with LLE calf pain. patient described the calf pain as dull and aching. patient denies any leg swelling, redness, bluish black discoloration, hotness, tlingling, or coldenss. Patient states she usually get these episodes due PVD. Patient states in the past time at times having left calf pain when walking. Patient was informed by her Vascular Surgeon that those are symtpoms of claudication. patient was sent to the ED to get ultrasound to make sure there is no DVT. Patient also states slight shortness of breath that satruday that resolved on its own. patient denies any chest pain. Related Data Home Medications Medication Instructions Recorded Confirmed ascorbate calcium (vitamin C) 500 600 mg PO DAILY tab 03/08/20 07/28/21 mg tablet aspirin 81 mg tablet,delayed 81 mg PO DAILY 03/08/20 07/28/21 release biotin 5 mg capsule 5 mg PO DAILY 03/08/20 07/28/21 cholecalciferol (vitamin D3) 25 25 mcg PO DAILY 03/08/20 07/28/21 mcg (1,000 unit) tablet famotidine 10 mg tablet 10 mg PO DAILY 03/08/20 07/28/21 Previous Rx's Medication Instructions Recorded meclizine 25 mg tablet 25 mg PO DAILY PRN #90 tab 06/28/20 simvastatin 20 mg tablet 20 mg PO BEDTIME #90 cap 10/22/20 spironolactone 50 mg tablet 50 mg PO DAILY #90 tab 07/23/21 diclofenac sodium 50 mg 50 mg PO BID #60 cap 08/03/21 tablet,delayed release albuterol sulfate 90 mcg/actuation 2 puff INHALATION Q4-6H PRN #8.5 g 08/22/21 aerosol inhaler azithromycin 250 mg tablet See Rx Instructions .ROUTE 08/22/21 .COMPLEX #6 tab Allergies Allergy/AdvReac Type Severity Reaction Status Date / Time acetaminophen [Percocet] Allergy Unknown Rash Verified 07/28/21 09:41 latex Allergy Unknown Rash Verified 07/28/21 09:41 oxycodone [Percocet] Allergy Unknown Agitated Verified 07/28/21 09:41 Review of Systems Review of Systems: left calf pain. resolved SOB Yes all other systems are reviewed and are negative [facility] Past Medical History Medical History (Updated 08/23/21 @ 00:02 by Jamal Jackson) Breast cancer Essential hypertension Hyperlipidemia Osteoarthritis Peripheral vascular disease Surgical History History of retinal detachment History of right knee surgery History of tonsillectomy Family History Family History Mother No problems noted. Father No problems noted. Maternal Aunt Breast cancer Son Mental health disorder Social History Social History Housing: House Alcohol intake: never Patient Tobacco Use Status: Never used Tobacco e-Cigarette/Vaping Use: Never Used Second Hand Smoke Exposure: No Advance Directives: No Advance Directives Information Provided: No service: No Current occupational status: retired Cognitive needs: No Hearing needs: Yes (hearing aide) Vision needs: Yes (glasses) Physical Exam ED Vital Signs: Vital Signs - 24 hr 08/22/21 13:58 08/22/21 15:50 Temperature 97.7 F Pulse Rate 78 70 Respiratory Rate 20 18 Blood Pressure 108/72 158/86 H Pulse Oximetry 97 95 BMI result Body Mass Index 20.2 Const General: cooperative, healthy appearing, comfortable, no acute distress, well developed, alert, awake and Physically active Orientation/consciousness: patient oriented x3 HENMT Head: Yes normal to inspection, Yes No palpable skull fracture present, Yes normocephalic, Yes atraumatic and No abrasion Eyes General: appearance normal, both eyes and all related structures Neck Neck: Yes normal visual inspection, Yes full ROM, Yes no lymphadenopathy, Yes no meningeal signs, Yes trachea midline, Yes supple, Yes anterior neck swelling and No tender Chest Chest palpation & inspection: normal inspection of the chest and normal palpation of entire chest wall Resp Effort & Inspection: normal respiratory effort and able to speak in complete sentences Auscultation: clear to auscultation bilaterally Cardio Jugular venous distension: no JVD Heart sounds: S1 normal heart sound present and S2 normal heart sound present GI Inspection: Yes normal to inspection and No abdominal wall ecchymosis Palpation (GI): Soft to palpation, not firm, nontender, no guarding and not rigid General: No CVA tenderness and Yes no CVA tenderness Back/Spine/Pelvis Back: no CVA tenderness, No CVA tenderness and No back tenderness Skin General skin exam: no rashes or lesions noted and elasticity normal Neuro General: patient oriented x3, gait normal, tone normal, no meningeal signs and CN's II-XI intact bilaterally Cranial nerves: Yes CN's II-XII intact bilaterally Extrem Other: Left Lower extremity: NEgative for any swelling, redness, ecchymosis, pitting edema, coldness, hotness, bluish/black discloration, gangrene, crepitus, Calf tenderness or deformities. Doppler ultrasound positive for posterior tibial artery, and faint AT and DT pulses. Foot is normal culture. (Patient states she was told that right foot pulses were better than left foot). nuero and motor exam is intact. Extremity has normal temperature and good color. Right lower extremity: Negative for any swelling, redness, ecchymosis, pitting edema, coldness, hotness, erythema, bluish/black discloration, creptis, calf tenderss on defomities. Doppler ultraousnd positive for posteriort tibial artery, AT, and DT. neuro/motor/vascular exam is intact. Extremity has good color and normal temperature General: Yes normal to inspection and Yes full ROM Psych Appearance: grossly normal, well kempt and not disheveled Course Course Course Narrative: Venous ultrasound and COvid swab was already ordered. Arterial ultrasound was ordered for evaluation for PVD. Patient has no chest pain or SOB now but due to age will do cardiac evaluation. EKG and labs ordered Reevaluation(s) Reevaluation #1: EKG negative STEMI. Troponin negative. BNP negative. D-dimer negative. Wells score 0. Chest x-ray shows some peribronchial thickening. Lungs are clear. Venous ultrasound negative for DVT. Arterial ultrasound shows chronic left popliteal stenosis With no significant change from 2020. Patient states she will follow-up with her surgeon Dr. Dumas. Dr. Ortez including physical exam, labs, history, and diagnostic imaging results and she agreed plan. Presently no physical sigs or reading of arterial occlusion. Patient presently denies any chest pain or shortness of breath. patient safe for discharged adn informed to continue taking aspiring Time: 19:54 Medical Decision Making MDM Narrative Medical decision making narrative: claudication. Peripheral vascular disease. bronchitis Lab Data Result diagrams: 08/22/21 16:53 08/22/21 16:53 Labs: Lab Results 08/22/21 08/22/21 08/22/21 Range/Units 15:55 15:55 16:53 WBC 5.4 (4.8-10.8) X10*3/uL RBC 4.78 (4.20-5.50) X10*6/uL Hgb 14.1 (12.0-16.0) g/dl Hct 43.8 (37.0-47.0) % MCV 91.6 (80.0-98.0) fL MCH 29.5 (27.0-33.0) pg MCHC 32.2 (31.0-35.0) g/dl RDW 12.7 (11.0-16.0) % Plt Count 133 L (160-400) X10*3/uL MPV 11.8 (9.4-12.3) fL Immature Gran % (Auto) 0.4 (0.0-0.4) % Neut % (Auto) 72.9 (45-73) % Lymph % (Auto) 21.3 (20-40) % [place] % (Auto) 4.4 (2-11) % Eos % (Auto) 0.8 (0-4) % Baso % (Auto) 0.2 (0-2) % Lymph # (Auto) 1.1 L (1.2-4.9) X10*3/uL [place] # (Auto) 0.2 (0.1-1.2) X10*3/uL Eos # (Auto) 0.0 (0.0-0.4) X10*3/uL Baso # (Auto) 0.0 (0.0-0.2) X10*3/uL Abs Immat Gran (auto) 0.02 (0.00-0.03) X10*3/uL Absolute Neuts (auto) 3.8 (2.0-8.3) x10*3/uL Absolute Nucleated RBC 0.000 (0.0-0.012) X10*3/uL Nucleated RBC % (auto) 0.0 (0.0-0.2) /100WBC Smear Tech's Comments VERIFIED PT (9.9-13.0) SEC INR (0.9-1.1) APTT (24.1-38.0) SEC D-Dimer High Sensitivty NG/ML Sodium (135-145) mmol/L Potassium (3.3-5.1) mmol/L Chloride (96-108) mmol/L Carbon Dioxide (22-29) mmol/L Anion Gap (12-20) BUN (9-16) mg/dL Creatinine (0.5-1.4) mg/dL Estim Creat Clear Calc Estimated GFR Random Glucose (60-115) mg/dL Calcium (8.4-10.2) mg/dL Magnesium (1.6-2.6) mg/dL Total Bilirubin (0.0-1.0) mg/dL AST (5-31) U/L ALT (0-31) U/L Alkaline Phosphatase (39-117) U/L Total Creatine Kinase (26-140) U/L Troponin I High Sens (<3.5-17.0) ng/L B-Natriuretic Peptide (<100) pg/mL Total Protein (6.5-8.0) g/dL Albumin (3.5-5.0) g/dL COVID-19 (AZUL) Negative (Negative) COVID-19 Clin Com See Note Influenza Type A (FABIOLA) Negative (Negative) Influenza Type B (FABIOLA) Negative (Negative) Influenza A & B Note See Note 08/22/21 08/22/21 08/22/21 Range/Units 16:53 16:53 16:53 WBC (4.8-10.8) X10*3/uL RBC (4.20-5.50) X10*6/uL Hgb (12.0-16.0) g/dl Hct (37.0-47.0) % MCV (80.0-98.0) fL MCH (27.0-33.0) pg MCHC (31.0-35.0) g/dl RDW (11.0-16.0) % Plt Count (160-400) X10*3/uL MPV (9.4-12.3) fL Immature Gran % (Auto) (0.0-0.4) % Neut % (Auto) (45-73) % Lymph % (Auto) (20-40) % Rutherford % (Auto) (2-11) % Eos % (Auto) (0-4) % Baso % (Auto) (0-2) % Lymph # (Auto) (1.2-4.9) X10*3/uL [place] # (Auto) (0.1-1.2) X10*3/uL Eos # (Auto) (0.0-0.4) X10*3/uL Baso # (Auto) (0.0-0.2) X10*3/uL Abs Immat Gran (auto) (0.00-0.03) X10*3/uL Absolute Neuts (auto) (2.0-8.3) x10*3/uL Absolute Nucleated RBC (0.0-0.012) X10*3/uL Nucleated RBC % (auto) (0.0-0.2) /100WBC Smear Tech's Comments PT 11.2 (9.9-13.0) SEC INR 1.0 (0.9-1.1) APTT 36.4 (24.1-38.0) SEC D-Dimer High Sensitivty 182 NG/ML Sodium 142 (135-145) mmol/L Potassium 3.8 (3.3-5.1) mmol/L Chloride 108 (96-108) mmol/L Carbon Dioxide 26 (22-29) mmol/L Anion Gap 12 (12-20) BUN 28 H (9-16) mg/dL Creatinine 0.86 (0.5-1.4) mg/dL Estim Creat Clear Calc 42.6 Estimated GFR > 60 Random Glucose 123 H (60-115) mg/dL Calcium 9.5 (8.4-10.2) mg/dL Magnesium 2.3 (1.6-2.6) mg/dL Total Bilirubin 0.2 (0.0-1.0) mg/dL AST 25 (5-31) U/L ALT 25 (0-31) U/L Alkaline Phosphatase 53 (39-117) U/L Total Creatine Kinase 167 H (26-140) U/L Troponin I High Sens 3.7 (<3.5-17.0) ng/L B-Natriuretic Peptide 21 (<100) pg/mL Total Protein 6.9 (6.5-8.0) g/dL Albumin 4.0 (3.5-5.0) g/dL COVID-19 (AZUL) (Negative) COVID-19 Clin Com Influenza Type A (FABIOLA) (Negative) Influenza Type B (FABIOLA) (Negative) Influenza A & B Note ECG Data Interpretation: sinus rhythm with first-degree AV block. Ventricular rate 66. Pr interval 210. QRS 88. QTC 446. Negative STEMI Discharge Plan Discharge Clinical Impression: Peripheral vascular disease, Claudication in peripheral vascular disease, Bronchitis Patient Disposition: Home, Self-Care Instructions: Peripheral Vascular Disease (ED), Acute Bronchitis (ED) Additional Instructions: do EKG and blood work came back negative for heart attack or heart failure. COVID influenza swab is negative. Venous ultrasound came back negative for any DVT. The arterial ultrasound shows left popliteal artery stenosis chronic since 2020. Chest x-ray showed signs of bronchitis. Return to the ED for any bluish black discoloration of left lower extremity, gangrene on foot, coldness, numbness/tingling, redness, hotness, pus discharge, chest pain, shortness of breath, coughing up blood, or any other concerning symptoms. Continue taking aspirin as prescribed. Please follow-up with vascular surgeon Prescriptions: New azithromycin 250 mg tablet See Rx Instructions .ROUTE .COMPLEX Qty: 6 0RF Rx Instructions: For 250 mg dose pack: take 500 mg today (day 1), then 250 mg for 4 days (days 2-5) albuterol sulfate 90 mcg/actuation HFA aerosol inhaler 2 puff inhalation Q4-6H PRN (Reason: shortness of breath or wheezing) Qty: 8.5 0RF No Action meclizine 25 mg tablet 25 mg PO DAILY PRN (Reason: dizziness) Qty: 90 0RF simvastatin 20 mg tablet 20 mg PO BEDTIME Qty: 90 0RF spironolactone 50 mg tablet 50 mg PO DAILY Qty: 90 1RF diclofenac sodium 50 mg tablet,delayed release (DR/EC) 50 mg PO BID Qty: 60 0RF famotidine 10 mg tablet 10 mg PO DAILY 0RF aspirin 81 mg tablet,delayed release (DR/EC) 81 mg PO DAILY 0RF cholecalciferol (vitamin D3) 25 mcg (1,000 unit) tablet 25 mcg PO DAILY 0RF ascorbate calcium (vitamin C) 500 mg tablet 600 mg PO DAILY 0RF biotin 5 mg capsule 5 mg PO DAILY 0RF Referrals: Willie Dumas MD [Physician] - ( peripheral vascular disease. Chronic left popliteal artery stenosis.) Interventions: ED Discharge Assessment Last Done: 08/22/21 20:13 Discharge Date/Time: 08/22/21 20:16 Print Language: Lao
== END 2021-08-22 20:16 | disposition home or self-care (01) ==
PROVIDERS: Physician Assistant; Emergency Provider Emergency Medicine; PCP Internal Medicine
DX: I70.212 Atherosclerosis of native arteries of extremities with intermittent claudication, left leg (principal); M79.605 Pain in left leg; J40 Bronchitis, not specified as acute or chronic; R06.02 Shortness of breath; I10 Essential (primary) hypertension; Z20.822 Contact with and (suspected) exposure to COVID-19
CPT/HCPCS: 36415; 71045; 80053; 82550; 83735; 83880; 84484; 85025; 85379; 85610; 85730; 87502; 87635; 93005; 93926; 93971; 99283; 99284

== ENCOUNTER 2021-09-01 16:11 | Outpatient (REF) | payer MEDICARE, SELFPAY ==
[2021-09-01 17:02] LABS: Anion Gap 11 (12-20); Blood Urea Nitrogen 36 mg/dL (9-16); Calcium 9.9 mg/dL (8.4-10.2); Carbon Dioxide 27 mmol/L (22-29); Chloride 107 mmol/L (96-108); Estimated Glomerular Filt Rate 53; Glucose Random 104 mg/dL (60-115); Magnesium 2.5 mg/dL (1.6-2.6); Potassium 4.7 mmol/L (3.3-5.1); Sodium 140 mmol/L (135-145)
[2021-09-01 17:13] LABS: Appearance Urine CLEAR; Color Urine YELLOW; Glucose Urine UA NEG (NEG); Leukocyte Esterase Urine NEG (NEG); Nitrite Urine NEG (NEG); PH 5.5 (5.0-8.0); Specific Gravity - Urine >= 1.030 (1.005-1.025); Urine Blood NEG (NEG); Urine Ketones 5 MG/DL (NEG); Urine Protein NEG (NEG-TRACE)
[2021-09-01 17:23] LABS: Vitamin D 25-OH Total 43.4 ng/mL (>30)
[2021-09-01 17:43] LABS: Folate > 20.0 ng/mL (> or = 4.0); Vitamin B12 1318 pg/mL (200-900)
== END 2021-09-01 16:12 | disposition home or self-care (01) ==
LOC: HO.LAB 16:11
PROVIDERS: PCP Internal Medicine; Visit Provider Physician Assistant
DX: E53.8 Deficiency of other specified B group vitamins (principal); R53.83 Other fatigue; R30.0 Dysuria; I10 Essential (primary) hypertension; E78.5 Hyperlipidemia, unspecified; M19.90 Unspecified osteoarthritis, unspecified site; Z85.3 Personal history of malignant neoplasm of breast
CPT/HCPCS: 36415; 80048; 81003; 82306; 82607; 82746; 83735

== ENCOUNTER 2021-09-19 14:07 | Outpatient (REF) | payer MEDICARE, SELFPAY ==
--- NOTE | ~2021-09-19 | US_ITS ---
EXAMINATION: NONINVASIVE ASSESSMENT OF THE ARTERIES OF BOTH LOWER EXTREMITIES WITH PVR EXAM AND BILATERAL LOWER EXTREMITY DUPLEX CLINICAL INFORMATION: Peripheral vascular disease. TECHNIQUE: Ankle pulse volume recordings, ankle pressure measurements and ankle-brachial indices were obtained of the lower extremity arterial system bilaterally. Additionally, duplex Doppler techniques were used with wave form analysis and measurement of velocities in the common femoral, profunda femoral, superficial femoral, popliteal and tibial arteries. The study was performed only at rest. COMPARISON: None. FINDINGS: ANKLE-BRACHIAL INDEX: Right: 1.16 Left: 0.49 ANKLE PVR WAVEFORM: Right: Mildly dampened. Left: Dampened. DIRECT DUPLEX DOPPLER FINDINGS: RIGHT LEG: Common femoral artery: 128 cm/s, diastolic flow reversal: Yes. Profunda femoris artery: 87.4 cm/s, diastolic flow reversal: Yes. Superficial femoral artery (proximal): 103 cm/s, diastolic flow reversal: Yes. Superficial femoral artery (mid): 97.9 cm/s, diastolic flow reversal: Yes. Superficial femoral artery (distal): 93.8 cm/s, diastolic flow reversal: Yes. Popliteal artery: 73.3 cm/s, diastolic flow reversal: Yes. Posterior tibial artery: 49.9 cm/s, diastolic flow reversal: Yes. Peroneal artery: 76.2 cm/s, diastolic flow reversal: Yes. Atherosclerosis: [id number] atherosclerosis present throughout. LEFT LEG: Common femoral artery: 91.5 cm/s, diastolic flow reversal: Yes. Profunda femoris artery: 60.9 cm/s, diastolic flow reversal: No. Superficial femoral artery (proximal): 53.4 cm/s, diastolic flow reversal: Yes. Superficial femoral artery (mid): 46.8 cm/s, diastolic flow reversal: Yes. Superficial femoral artery (distal): 35 cm/s, diastolic flow reversal: No. Popliteal artery: Likely occluded proximally. Minimal monophasic flow is present within the distal popliteal artery. Posterior tibial artery: 11.4 cm/s, diastolic flow reversal: No. Peroneal artery: 33.2 cm/s, diastolic flow reversal: No. Atherosclerosis: Moderate disease throughout including significant, obstructive plaque within the popliteal artery. US/US arterial duplex LE BI IMPRESSION: Right leg: DAVE 1.16. No hemodynamically significant lesions identified on duplex. Left leg: DAVE 0.49 consistent with severe peripheral arterial insufficiency. Duplex ultrasound reveals likely occlusion of the proximal/mid popliteal artery. Monophasic flow is present within the very distal popliteal artery and within the posterior tibial and peroneal arteries. DAVE Reference: - >0.97-1.25 = normal - no significant arterial disease. - 0.75-0.96 = mild peripheral arterial disease. - 0.5-0.74 = moderate peripheral arterial disease. - <0.50 = severe peripheral arterial disease.
== END 2021-09-19 14:08 | disposition home or self-care (01) ==
LOC: HO.US 14:07
PROVIDERS: Visit Provider Surgery Vascular Surgery
DX: I73.9 Peripheral vascular disease, unspecified (principal)
CPT/HCPCS: 93923; 93925

== ENCOUNTER → 2021-09-22 14:46 | Outpatient (BNVA) | payer MEDICARE, SELFPAY | PROVIDERS: PCP Internal Medicine; Visit Provider Surgery Vascular Surgery | DX: I73.9 Peripheral vascular disease, unspecified (principal) | CPT/HCPCS: 99212 ==

== ENCOUNTER 2021-10-05 07:37 | Day surgery (SDC) | payer MEDICARE, SELFPAY ==
[2021-10-05 08:02] VITALS: BMI 20.2
[2021-10-05] MEDS: 0.9 % Sodium Chloride 1,000 ML 100 ML IVCONT (08:34)
[2021-10-05 08:50] LABS: MANUAL DIFF FLAG NO
[2021-10-05 08:55] LABS: Basophils Percent Auto 0.2 % (0-2); Eosinophils Absolute Auto 0.1 X10*3/uL (0.0-0.4); Eosinophils Percent Auto 2.3 % (0-4); Hematocrit 40.7 % (37.0-47.0); Hemoglobin 13.4 g/dl (12.0-16.0); Imm Gran Abs Auto 0.01 X10*3/uL (0.00-0.03); Imm Gran Pct Auto 0.2 % (0.0-0.4); Lymphocytes Absolute Auto 1.1 X10*3/uL (1.2-4.9); Lymphocytes Percent Auto 20.5 % (20-40); Mean Corpuscular HGB Conc 32.9 g/dl (31.0-35.0); Mean Corpuscular Hemoglobin 29.7 pg (27.0-33.0); Mean Corpuscular Volume 90.2 fL (80.0-98.0); Mean Platelet Volume 11.3 fL (9.4-12.3); Monocytes Absolute Auto 0.4 X10*3/uL (0.1-1.2); Monocytes Percent Auto 7.6 % (2-11); Neutrophils Absolute Auto 3.7 x10*3/uL (2.0-8.3); Neutrophils Percent Auto 69.2 % (45-73); Platelet Count 130 X10*3/uL (160-400); Red Blood Count 4.51 X10*6/uL (4.20-5.50); Red Cell Distribution Width 12.9 % (11.0-16.0); White Blood Count 5.3 X10*3/uL (4.8-10.8)
[2021-10-05 09:12] LABS: Blood Urea Nitrogen 20 mg/dL (9-16); Creatinine Clr Calc Pharmacy 42.1; Estimated Glomerular Filt Rate > 60
[2021-10-05] MEDS: iohexoL 300 MG/ML 100 ML INFUS..BTL IV (11:57)
[2021-10-05 12:00] VITALS: BP 159/76; PULSE 57; RESP 18; TEMP 36.4; O2SAT 95
--- NOTE | 2021-10-05 12:01 | P.OP_ITS ---
Operative Note Operative Note Date of Service: 10/05/21 Narrative: Angiogram report from [facility] Preoperative diagnosis: Atherosclerosis of left lower extremity with activity limiting claudication Postoperative diagnosis: Same Procedure: 1. Ultrasound-guided right common femoral access 2. Aortogram with left lower extremity runoff 3. Atherectomy and plasty of left popliteal artery Surgeon:Willie Dumas M.D., FACS, RPVI Executive Sales Manager:None Anesthesia: Local with moderate conscious sedation. Total intraservice moderate sedation time was 75 minutes. I monitored the patient's level of consciousness and physiologic status continuously throughout the procedure. Specimens:none Drains:none Estimated blood loss: Less than 10 ml Implant: Medtronic Impact 5 x 40 DCB Indications: 81-year-old with severe activity limiting claudication of the left lower extremity presents for endovascular intervention. Preprocedure ultrasound demonstrated occlusion of the popliteal artery. She now presents for intervention The patient has signed the informed consent after reviewing risks, complications, benefits, and alternatives previously discussed with the patient. The patient was given the opportunity to ask any additional questions or voice any concerns. All questions were answered to the patient's satisfaction. Procedure in detail: Patient was brought to the angiography suite prior to which a time-out was called for patient identification and site verification. Prior to the start of the procedure she was identified as having a contrast allergy and Benadryl and Solu-Cortef was administered. Bilateral groins were prepped and draped in the standard surgical fashion. Under ultrasound guidance right common femoral was punctured with micro puncture needle and wire. Subsequently a precision 5 Slovenian sheath was then placed. Bentson wire was advanced to the level of the aorta. 5 Slovenian Flush catheter was brought up and parked at the level of the renal arteries. Aortogram was then undertaken. Catheter was brought down to the level of the iliac bifurcation. Iliacs were subsequently imaged. Catheter was then brought in up and over to the left side SFA. Runoff study was then undertaken. Popliteal occlusion was identified. We then administered 4000 units heparin. After 5 minutes of circulation time up and over 6 Slovenian sheath was then placed. We used a Glidewire Advantage 035 to traverse the lesion. Once we were cross we confirmed true lumen with a trail Blazer catheter. Once this was accomplished we advanced a 5. Spider wire. We did multiple unidirectional passes with a Hawk 1 atherectomy device. Once this was accomplished we then plasty this area with a 5 x 40 drug coated balloon. This was brought into position in under 3 minutes and insufflated for a total of 3 minutes in duration. Once this was accomplished catheter and wire and sheath were brought back to the ipsilateral side and StarClose closure device was then deployed. Patient tolerated the procedure well returned to recovery with stable vitals. No intraoperative reaction to contrast was noted. Interpretation of films: 1. Ultrasound demonstrates appropriate femoral puncture. Image of which was saved. 2. Aortogram demonstrates appropriate caliber aorta. Minimal disease. Appropriate take-off of the renals. 3. Iliac images demonstrate 4. Left Leg Common femoral artery: No significant disease Profundus Femoris: No significant disease Superficial femoral artery: No significant disease Popliteal artery (p1,p2,p3): Total occlusion of the P1 segment with reconstitution at P2 Anterior tibial artery: Flow all the way down to the ankle Peroneal artery: Flow all the way down to the foot Posterior tibial artery: Total occlusion Dorsalis pedis/plantar arch: Incomplete arch Conclusion: 1. Successful atherectomy and plasty of left popliteal artery 2. Anticoagulation status: She will require 6 months of aspirin and Plavix. This note is constructed using voice recognition software. While every effort has been made to ensure accuracy, hospice community liaison errors may have been included. Thank you for allowing me to participate in the care of your patient. Yours sincerely, Willie Dumas MD, FACS, R.P.V.I.
--- NOTE | 2021-10-05 12:04 | HE.PHANOTE ---
Spoke to Cyndy in PACU regarding allergy to contrast media, she stated pt had no reaction to the omnipaque that was administered before order verification.
[2021-10-05 12:18] VITALS: BP 144/73; PULSE 58; RESP 16; O2SAT 95
[2021-10-05 12:33] VITALS: BP 139/75; PULSE 56; RESP 17; O2SAT 95
[2021-10-05 12:45] VITALS: BP 145/73; PULSE 56; RESP 17; O2SAT 92
[2021-10-05 13:00] VITALS: BP 152/87; PULSE 76; RESP 18; O2SAT 94
[2021-10-05 13:30] VITALS: BP 148/75; PULSE 68; RESP 20; TEMP 36.1; O2SAT 95
== END 2021-10-05 14:11 | disposition home or self-care (01) ==
PROVIDERS: PCP Internal Medicine; Visit Provider Surgery Vascular Surgery
DX: I70.212 Atherosclerosis of native arteries of extremities with intermittent claudication, left leg (principal); M79.662 Pain in left lower leg; R26.2 Difficulty in walking, not elsewhere classified; M19.90 Unspecified osteoarthritis, unspecified site; I10 Essential (primary) hypertension; E78.5 Hyperlipidemia, unspecified; Z85.3 Personal history of malignant neoplasm of breast; Z88.8 Allergy status to other drugs, medicaments and biological substances; Z91.041 Radiographic dye allergy status
CPT/HCPCS: 36415; 37227; 76937; 82565; 84520; 85025; 99152; 99153; C1714; C1725; C1760; C1769; C1884; C1887; J1200; J2250; J3010; Q9967

== ENCOUNTER → 2021-10-13 08:53 | Outpatient (BNVA) | payer MEDICARE, SELFPAY | PROVIDERS: PCP Internal Medicine; Visit Provider Surgery Vascular Surgery | DX: G89.18 Other acute postprocedural pain (principal); M79.605 Pain in left leg; I73.9 Peripheral vascular disease, unspecified | CPT/HCPCS: 99212 ==

== ENCOUNTER 2022-01-09 08:24 | Outpatient (REF) | payer MEDICARE, SELFPAY ==
--- NOTE | ~2022-01-09 | US_ITS ---
EXAMINATION: ANKLE-BRACHIAL INDICES SINGLE LEVEL PULSE VOLUME RECORDING ARTERIAL DUPLEX BILATERAL LEGS CLINICAL INFORMATION: Peripheral vascular disease. History of left popliteal atherectomy and angioplasty 10/05/2021. COMPARISON: 09/19/2021 TECHNIQUE: Ankle-brachial indices and PVR at the ankle were obtained. Duplex Doppler of the bilateral lower extremity arterial systems was performed. FINDINGS: RIGHT: Ankle-brachial index: 1.23 PVR: Normal Common femoral: PSV 90 cm/s. Triphasic waveform. Deep femoral: PSV 60 cm/s. Triphasic waveform. Proximal superficial femoral: PSV 82 cm/s. Triphasic waveform. Mid superficial femoral: PSV 76 cm/s. Biphasic waveform. Distal superficial femoral: PSV 76 cm/s. Triphasic waveform. Popliteal: PSV 71 cm/s. Triphasic waveform. Posterior tibial: PSV 81 cm/s. Triphasic waveform. LEFT: Ankle-brachial index: 1.28 PVR: Normal Common femoral: PSV 90 cm/s. Triphasic waveform. Deep femoral: PSV 57 cm/s. Triphasic waveform. Proximal superficial femoral: PSV 63 cm/s. Biphasic waveform. Mid superficial femoral: PSV 69 cm/s. Biphasic waveform. Distal superficial femoral: PSV 79 cm/s. Biphasic waveform. Popliteal: Difficult to visualize due to calcification. PSV 152 cm/s. Triphasic waveform. Posterior tibial: PSV 41 cm/s. Biphasic waveform. US/US arterial duplex LE BI IMPRESSION: No evidence of hemodynamically significant peripheral arterial disease by DAVE/PVR criteria. No focal hemodynamically significant lesion detected with Doppler. The treated left popliteal artery is patent with triphasic waveform.
--- NOTE | ~2022-01-09 | US_ITS ---
EXAMINATION: ANKLE-BRACHIAL INDICES SINGLE LEVEL PULSE VOLUME RECORDING ARTERIAL DUPLEX BILATERAL LEGS CLINICAL INFORMATION: Peripheral vascular disease. History of left popliteal atherectomy and angioplasty 10/05/2021. COMPARISON: 09/19/2021 TECHNIQUE: Ankle-brachial indices and PVR at the ankle were obtained. Duplex Doppler of the bilateral lower extremity arterial systems was performed. FINDINGS: RIGHT: Ankle-brachial index: 1.23 PVR: Normal Common femoral: PSV 90 cm/s. Triphasic waveform. Deep femoral: PSV 60 cm/s. Triphasic waveform. Proximal superficial femoral: PSV 82 cm/s. Triphasic waveform. Mid superficial femoral: PSV 76 cm/s. Biphasic waveform. Distal superficial femoral: PSV 76 cm/s. Triphasic waveform. Popliteal: PSV 71 cm/s. Triphasic waveform. Posterior tibial: PSV 81 cm/s. Triphasic waveform. LEFT: Ankle-brachial index: 1.28 PVR: Normal Common femoral: PSV 90 cm/s. Triphasic waveform. Deep femoral: PSV 57 cm/s. Triphasic waveform. Proximal superficial femoral: PSV 63 cm/s. Biphasic waveform. Mid superficial femoral: PSV 69 cm/s. Biphasic waveform. Distal superficial femoral: PSV 79 cm/s. Biphasic waveform. Popliteal: Difficult to visualize due to calcification. PSV 152 cm/s. Triphasic waveform. Posterior tibial: PSV 41 cm/s. Biphasic waveform. US/US DAVE complete IMPRESSION: No evidence of hemodynamically significant peripheral arterial disease by DAVE/PVR criteria. No focal hemodynamically significant lesion detected with Doppler. The treated left popliteal artery is patent with triphasic waveform.
== END 2022-01-09 08:25 | disposition home or self-care (01) ==
LOC: HO.US 08:24
PROVIDERS: Visit Provider Surgery Vascular Surgery
DX: I73.9 Peripheral vascular disease, unspecified (principal)
CPT/HCPCS: 93923; 93925

== ENCOUNTER → 2022-01-17 09:38 | Outpatient (BNVA) | payer MEDICARE, SELFPAY | PROVIDERS: PCP Internal Medicine; Visit Provider Surgery Vascular Surgery | DX: I73.9 Peripheral vascular disease, unspecified (principal) | CPT/HCPCS: 99212 ==

== ENCOUNTER 2022-01-19 15:24 | Outpatient (REF) | payer SELFPAY | END 2022-01-19 15:25 | disposition home or self-care (01) | LOC: HO.HAP 15:24 | PROVIDERS: Visit Provider Internal Medicine | DX: Z46.1 Encounter for fitting and adjustment of hearing aid (principal); H90.6 Mixed conductive and sensorineural hearing loss, bilateral | CPT/HCPCS: 92700; V5299 ==

== ENCOUNTER 2022-02-01 07:43 | Outpatient (REF) | payer MEDICARE, SELFPAY ==
[2022-02-01 11:41] LABS: Hematocrit 45.6 % (37.0-47.0); Hemoglobin 14.5 g/dl (12.0-16.0); Mean Corpuscular HGB Conc 31.8 g/dl (31.0-35.0); Mean Corpuscular Hemoglobin 29.4 pg (27.0-33.0); Mean Corpuscular Volume 92.3 fL (80.0-98.0); Mean Platelet Volume 12.2 fL (9.4-12.3); Platelet Count 165 X10*3/uL (160-400); Red Blood Count 4.94 X10*6/uL (4.20-5.50); Red Cell Distribution Width 12.5 % (11.0-16.0); White Blood Count 4.8 X10*3/uL (4.8-10.8)
[2022-02-01 11:56] LABS: Anion Gap 15 (12-20); Blood Urea Nitrogen 20 mg/dL (9-16); Calcium 9.9 mg/dL (8.4-10.2); Carbon Dioxide 27 mmol/L (22-29); Chloride 104 mmol/L (96-108); Cholesterol 173 mg/dL; Estimated Glomerular Filt Rate 54; Glucose Random 92 mg/dL (60-115); HDL Cholesterol 58 mg/dL; LDL Cholesterol Calculated 99 mg/dl; Potassium 4.5 mmol/L (3.3-5.1); Sodium 141 mmol/L (135-145); Triglycerides 80 mg/dL
[2022-02-01 12:05] LABS: Thyroid Stimulating Hormone 1.86 uIU/mL (0.32-4.0)
== END 2022-02-01 07:44 | disposition home or self-care (01) ==
LOC: HO.HMGCLDS 07:43
PROVIDERS: PCP Internal Medicine; Visit Provider Internal Medicine
DX: I10 Essential (primary) hypertension (principal)
CPT/HCPCS: 36415; 80048; 80061; 84443; 85027

== ENCOUNTER 2022-07-10 09:10 | Outpatient (REF) | payer MEDICARE, SELFPAY ==
--- NOTE | ~2022-07-10 | US_ITS ---
EXAMINATION: Noninvasive assessment of the bilateral lower extremities with ARTERIAL DUPLEX and ANKLE BRACHIAL INDICES (ABIs). CLINICAL INFORMATION: Peripheral vascular disease. History of left popliteal artery atherectomy and angioplasty TECHNIQUE: Duplex Doppler techniques with waveform analysis and measurement of velocities in the bilateral common femoral, profunda femoris, superficial femoral, popliteal and tibial arteries were performed. Additionally, ankle pulse volume recordings, ankle pressure measurements and ankle brachial indices were obtained of the lower extremity arterial system bilaterally. The study was performed only at rest. COMPARISON: 01/09/2022 and 09/19/2021 FINDINGS: DIRECT DUPLEX DOPPLER FINDINGS: RIGHT LEG: Common femoral artery: 106 cm/s, phasicity: Triphasic Profunda femoris artery: 52.3 cm/s, phasicity: Triphasic Superficial femoral artery (proximal): 82.7 cm/s, phasicity: Triphasic Superficial femoral artery (mid): 76.2 cm/s, phasicity: Biphasic Superficial femoral artery (distal): 68.0 cm/s, phasicity: Triphasic Popliteal artery: 46.8 cm/s, phasicity: Triphasic Posterior tibial artery: 75.6 cm/s, phasicity: Triphasic Peroneal artery: 47.5 cm/s, phasicity: Monophasic LEFT LEG: Common femoral artery: 83.8 cm/s, phasicity: Triphasic Profunda femoris artery: 76.8 cm/s, phasicity: Biphasic Superficial femoral artery (proximal): 58.1 cm/s, phasicity: Biphasic Superficial femoral artery (mid): 57.4 cm/s, phasicity: Biphasic Superficial femoral artery (distal): 51.1 cm/s, phasicity: Biphasic Popliteal artery: 99.0 cm/s, phasicity: Biphasic Posterior tibial artery: 70.9 cm/s, phasicity: Biphasic. Heavily calcified plaque is seen within the popliteal artery causing shadowing Peroneal artery: 38.1 cm/s, phasicity: Biphasic ANKLE-BRACHIAL INDEX: Right: 1.11?, previously 1.23 Left: 1.17, previously 1.3 ANKLE PRESSURES: Right: PT 128, DP 166 Left: PT?175, DP?153 ANKLE PVR WAVEFORMS: Right: Normal Left: Normal US/US arterial duplex LE BI IMPRESSION: Right leg: Normal ankle brachial index. Patent arterial flow throughout the right lower extremity without significant stenosis Left leg: Normal ankle brachial index. Calcified plaque seen in the popliteal artery causing significant shadowing. Patent arterial flow throughout the left lower extremity without significant stenosis. DAVE Reference: - >1.4 = calcified vessels - 0.9 - 1.4 = normal - no significant arterial disease - 0.7 - 0.89 = mild peripheral arterial disease - 0.51 - 0.69 = moderate peripheral arterial disease - ? 0.50 = severe peripheral arterial disease - < .30 = critical arterial disease
== END 2022-07-10 09:11 | disposition home or self-care (01) ==
LOC: HO.US 09:10
PROVIDERS: PCP Internal Medicine; Visit Provider Surgery Vascular Surgery
DX: I70.213 Atherosclerosis of native arteries of extremities with intermittent claudication, bilateral legs (principal)
CPT/HCPCS: 93923; 93925

== ENCOUNTER → 2022-08-24 09:00 | Outpatient (BNVA) | payer MEDICARE, SELFPAY | PROVIDERS: PCP Internal Medicine; Visit Provider Surgery Vascular Surgery | DX: I73.9 Peripheral vascular disease, unspecified (principal) | CPT/HCPCS: 99212 ==

== ENCOUNTER 2023-01-29 20:36 | Emergency (ER) | payer MEDICARE, SELFPAY ==
[2023-01-29 20:49] VITALS: BP 107/62; PULSE 95; RESP 20; TEMP 36.4; O2SAT 95; BMI 20.9
[2023-01-29 21:49] LABS: Hematocrit 36.9 % (37.0-47.0); Hemoglobin 12.1 g/dl (12.0-16.0); Mean Corpuscular HGB Conc 32.8 g/dl (31.0-35.0); Mean Corpuscular Volume 91.3 fL (80.0-98.0); Mean Platelet Volume 11.8 fL (9.4-12.3); Platelet Count 131 X10*3/uL (160-400); Red Blood Count 4.04 X10*6/uL (4.20-5.50); Red Cell Distribution Width 12.9 % (11.0-16.0); White Blood Count 10.1 X10*3/uL (4.8-10.8)
[2023-01-29 21:56] LABS: Alanine Aminotransferase 22 U/L (0-31); Albumin Level 3.6 g/dL (3.5-5.0); Alkaline Phosphatase 41 U/L (39-117); Anion Gap 16 (12-20); Aspartate Amino Transferase 23 U/L (5-31); Bilirubin Total 0.3 mg/dL (0.0-1.0); Blood Urea Nitrogen 50 mg/dL (9-16); Calcium 9.1 mg/dL (8.4-10.2); Carbon Dioxide 23 mmol/L (22-29); Chloride 109 mmol/L (96-108); Creatinine Clr Calc Pharmacy 40.1; Estimated Glomerular Filt Rate 60; Glucose Random 109 mg/dL (60-115); Potassium 4.6 mmol/L (3.3-5.1); Sodium 143 mmol/L (135-145)
--- NOTE | 2023-01-29 23:27 | ED_ITS ---
HPI - General Adult General Chief complaint: General Medical Stated complaint: Weakness, low bp Time Seen by Provider: 01/29/23 23:24 Source: patient Mode of arrival: ambulatory Limitations: no limitations History of Present Illness HPI narrative: Patient otherwise in stable health been not feeling well for last few days was congested 3 days ago checked COVID 3 times negative having diffuse abdominal cramps for last few days, had nausea no vomiting able to eat and having normal bowel movements, today she was feeling very weak checked her blood pressure was 76/56 immediately repeat blood pressure was 105/70 no palpitation no chest pain no diaphoresis no urinary complaints Related Data Home Medications Medication Instructions Recorded Confirmed ascorbate calcium (vitamin C) 500 600 mg PO DAILY 03/08/20 09/01/21 mg tablet aspirin 81 mg tablet,delayed 81 mg PO DAILY 03/08/20 09/01/21 release biotin 5 mg capsule 5 mg PO DAILY 03/08/20 09/01/21 cholecalciferol (vitamin D3) 25 25 mcg PO DAILY 03/08/20 09/01/21 mcg (1,000 unit) tablet famotidine 10 mg tablet 10 mg PO DAILY 03/08/20 09/01/21 Previous Rx's Medication Instructions Recorded meclizine 25 mg tablet 25 mg PO DAILY PRN dizziness #90 06/28/20 tabs albuterol sulfate 90 mcg/actuation 2 puff inhalation Q4-6H PRN 08/22/21 aerosol inhaler shortness of breath or wheezing #8.5 grams clopidogrel 75 mg tablet (Plavix) 75 mg PO DAILY #90 tabs 10/05/21 diclofenac sodium 50 mg 50 mg PO BID for pain 90 days #180 05/31/22 tablet,delayed release caps spironolactone 50 mg tablet 25 mg (1/2 x 50 mg) PO DAILY #90 05/31/22 tabs simvastatin 20 mg tablet 20 mg PO BEDTIME #90 caps 12/11/22 cefuroxime axetil 250 mg tablet 250 mg PO BID 7 days #14 tabs 01/30/23 ondansetron 4 mg disintegrating 4 mg PO Q6-8H PRN nausea and 01/30/23 tablet vomiting #7 tabs Allergies Allergy/AdvReac Type Severity Reaction Status Date / Time Iodinated Contrast Media Allergy Severe Anaphylaxis Verified 08/24/22 09:13 [Contrast Dye] acetaminophen [Percocet] Allergy Unknown Rash Verified 08/24/22 09:13 latex Allergy Unknown Rash Verified 08/24/22 09:13 oxycodone [Percocet] Allergy Unknown Agitated Verified 08/24/22 09:13 Review of Systems 2 Review of Systems: Yes all other systems are reviewed and are negative [facility] Past Medical History Medical History Essential hypertension Osteoarthritis Hyperlipidemia Breast cancer Peripheral vascular disease Surgical History History of right knee surgery History of retinal detachment History of tonsillectomy Family History Family History Mother No problems noted. Father No problems noted. Maternal Aunt Breast cancer Son Mental health disorder Social History Social History Housing: House Alcohol intake: never Patient Tobacco Use Status: Never used Tobacco Smoked in Last 30 Days: No e-Cigarette/Vaping Use: Never Used Second Hand Smoke Exposure: No Use of substances other than those prescribed or required for medical reasons: No Advance Directives: No Advance Directives Information Provided: No service: No Current occupational status: retired Cognitive needs: No Hearing needs: Yes (hearing aide) Vision needs: Yes (glasses) Physical Exam ED Vital Signs: Vital Signs - 24 hr 01/29/23 20:49 01/29/23 23:32 01/30/23 01:17 Temperature 97.5 F 98.2 F 97.6 F Pulse Rate 95 79 72 Respiratory Rate 20 18 16 Blood Pressure 107/62 145/72 H 126/58 L Pulse Oximetry 95 99 95 Oxygen Delivery Method Room Air Room Air Room Air 01/30/23 01:17 01/30/23 01:18 01/30/23 01:18 Temperature Pulse Rate 72 76 88 Respiratory Rate Blood Pressure 126/58 L 131/66 107/57 L Pulse Oximetry Oxygen Delivery Method BMI result Body Mass Index 20.9 Appearance: Alert. Oriented X3. No acute distress. Eyes: PERRLA, No Nystagmus ENT: Pharynx normal. Oral Mucosa moist Neck: Normal inspection. Neck supple. CVS: Normal heart rate and rhythm. Pulses normal. Respiratory: No respiratory distress. Equal air entry bilateral, no wheezing/rales/rhonchi Abdomen: Soft diffuse mild tenderness no rebound tenderness or guarding, Bowel sounds are present, no mass palpable, no CVA tenderness Skin: Skin warm and dry. Normal skin color. Normal skin turgor. Extremities: No lower extremity edema. No calf tenderness Neuro: Oriented X 3. No motor deficit. No sensory deficit.No cerebellar signs , cranial nerves II-XII intact Medications Administered Discontinued Medications Generic Name Dose Route Start Last Admin Trade Name Freq PRN Reason Stop Dose Admin Sodium Chloride 1,000 mls @ 999 mls/hr 01/29/23 23:30 01/30/23 01:06 Ns IV 01/30/23 00:30 Infused .Q1H1M ONE Infusion Ceftriaxone Sodium 1 gm/ 50 mls @ 100 mls/hr 01/30/23 00:33 01/30/23 01:06 Sodium Chloride IV 01/30/23 01:02 100 mls/hr ONCE ONE Administration Ondansetron HCl 4 mg 01/29/23 23:46 01/29/23 23:55 Ondansetron Hcl 4 Mg/2 Ml Vial IVPUSH 01/29/23 23:47 4 mg ONCE ONE Administration Medical Decision Making Medical Decision Making [facility] Narrative: Patient nausea with mild volume depletion workup showed mild UTI been received IV fluids and IV Rocephin feeling much better discharge patient home Differential Diagnosis Differential Diagnoses: The differential diagnosis associated with the presentation includes Bacteremia/UTI/viral syndrome Lab Data [facility] Lab Attestation statement: I reviewed the patient's lab results. 01/29/23 21:34 01/29/23 21:34 Labs: Lab Results 01/29/23 01/29/23 01/29/23 Range/Units 21:34 23:41 23:50 WBC 10.1 (4.8-10.8) X10*3/uL RBC 4.04 L (4.20-5.50) X10*6/uL Hgb 12.1 (12.0-16.0) g/dl Hct 36.9 L (37.0-47.0) % MCV 91.3 (80.0-98.0) fL MCH 30.0 (27.0-33.0) pg MCHC 32.8 (31.0-35.0) g/dl RDW 12.9 (11.0-16.0) % Plt Count 131 L (160-400) X10*3/uL MPV 11.8 (9.4-12.3) fL Absolute Nucleated RBC 0.000 (0.0-0.012) X10*3/uL Nucleated RBC % (auto) 0.0 (0.0-0.2) /100WBC Sodium 143 (135-145) mmol/L Potassium 4.6 (3.3-5.1) mmol/L Chloride 109 H (96-108) mmol/L Carbon Dioxide 23 (22-29) mmol/L Anion Gap 16 (12-20) BUN 50 H (9-16) mg/dL Creatinine 0.90 (0.5-1.4) mg/dL Estim Creat Clear Calc 40.1 Estimated GFR 60 Random Glucose 109 (60-115) mg/dL Lactic Acid 1.4 (0.5-2.0) mmol/L Calcium 9.1 D (8.4-10.2) mg/dL Total Bilirubin 0.3 (0.0-1.0) mg/dL AST 23 (5-31) U/L ALT 22 (0-31) U/L Alkaline Phosphatase 41 (39-117) U/L Total Protein 6.0 L (6.5-8.0) g/dL Albumin 3.6 (3.5-5.0) g/dL Urine Color Yellow Urine Appearance Clear Urine pH 5.5 (5.0-9.0) Ur Specific [place] 1.025 (1.005-1.025) Urine Protein Negative (Neg-Trace) mg/dL Urine Glucose (UA) Negative (Negative) mg/dL Urine Ketones Trace (Negative) mg/dL Urine Blood Negative (Negative) Urine Nitrite Negative (Negative) Ur Leukocyte Esterase Moderate (2+) H (Negative) Urine RBC 0-2 (0-2) /HPF Urine WBC 6-10 H (0-5) /HPF Ur Squamous Epith Cells 3-5 (0-2) /HPF Urine Bacteria None Seen (None Seen) Hyaline Casts 0-2 (0-2) /LPF COVID-19 (AZUL) Negative (Negative) COVID-19 Clin Com See Note Discharge Plan Discharge Clinical Impression: Viral syndrome, Acute UTI Patient Disposition: Home, Self-Care Instructions: Urinary Tract Infection in Women (DC), Viral Syndrome (ED) Additional Instructions: Drink plenty of fluids Medicine for nausea as prescribed Antibiotic as prescribed You have mild urinary tract infection report to the ER if high fever, vomiting or not feeling good Prescriptions: New cefuroxime axetil 250 mg tablet 250 mg PO BID 7 Days Qty: 14 0RF ondansetron 4 mg tablet,disintegrating 4 mg PO Q6-8H PRN (Reason: nausea and vomiting) Qty: 7 0RF No Action meclizine 25 mg tablet 25 mg PO DAILY PRN (Reason: dizziness) Qty: 90 0RF spironolactone 50 mg tablet 25 mg PO DAILY Qty: 90 1RF diclofenac sodium 50 mg tablet,delayed release (DR/EC) 50 mg PO BID 90 Days Qty: 180 2RF simvastatin 20 mg tablet 20 mg PO BEDTIME Qty: 90 0RF albuterol sulfate 90 mcg/actuation HFA aerosol inhaler 2 puff inhalation Q4-6H PRN (Reason: shortness of breath or wheezing) Qty: 8.5 0RF clopidogrel [Plavix] 75 mg tablet 75 mg PO DAILY Qty: 90 1RF famotidine 10 mg tablet 10 mg PO DAILY aspirin 81 mg tablet,delayed release (DR/EC) 81 mg PO DAILY cholecalciferol (vitamin D3) 25 mcg (1,000 unit) tablet 25 mcg PO DAILY ascorbate calcium (vitamin C) 500 mg tablet 600 mg PO DAILY biotin 5 mg capsule 5 mg PO DAILY
[2023-01-29 23:32] VITALS: BP 145/72; PULSE 79; RESP 18; TEMP 36.8; O2SAT 99
--- NOTE | 2023-01-29 23:45 | PC.NURSE ---
pt drove self to ED. pt a&ox3. respirations even and unlabored. reports not feeling well for a couple of days. pt reports checking blood pressure and it being low in the 70s at her house. pt reports abdominal pain with no nausea, vomiting or diarrhea. pt abdomen soft non tender to touch with active bowel sounds in all 4 quadrants. pt reports having normal po intake. denies SOB, chest pain and dizziness. pt lung sounds clear bilaterally. pt reports she feels she may have had a cold. pt normal sinus on tele 70-74. Iv established, labs and urine sent at this time. provider at bedside discussing pt care.
[2023-01-29 23:52] LABS: Appearance Urine Clear; Color Urine Yellow; Glucose Urine UA Negative (Negative); Leukocyte Esterase Urine Moderate (2+) (Negative); Nitrite Urine Negative (Negative); PH 5.5 (5.0-9.0); Specific Gravity - Urine 1.025 (1.005-1.025); UMIC TRIGGER UACC YES; Urine Blood Negative (Negative); Urine Ketones Trace mg/dL (Negative); Urine Protein Negative (Neg-Trace)
[2023-01-29] MEDS: ondansetron HCL 4 MG/2 ML VIAL IVPUSH (23:55)
[2023-01-29] MEDS: 0.9 % Sodium Chloride 1,000 ML 999 ML IV (23:55)
[2023-01-29 23:57] LABS: Bacteria Urine None Seen (None Seen); Hyaline Casts Urine 0-2 /LPF (0-2); RBC Urine 0-2 /HPF (0-2); UACC Culture Trigger YES
[2023-01-30 00:02] LABS: Lactic Acid 1.4 mmol/L (0.5-2.0)
[2023-01-30 00:09] LABS: COVID-19 Test Negative (Negative); IDNOW Serial# BCCEAD1C
[2023-01-30] MEDS: cefTRIAXone sodium 1 GM in 0.9 % Sodium Chloride 50 ML IV (01:06)
[2023-01-30 01:17] VITALS: BP 126/58; PULSE 72; RESP 16; TEMP 36.4; O2SAT 95
[2023-01-30 01:18] VITALS: BP 107/57; BP 131/66; PULSE 76; PULSE 88
[2023-01-30] MEDS: Dicyclomine HCl 10 MG CAPSULE 20 MG PO (01:38)
[2023-01-30 02:00] VITALS: BP 134/59; PULSE 79; RESP 18; TEMP 37.1; O2SAT 97
== END 2023-01-30 02:04 | disposition home or self-care (01) ==
PROVIDERS: Emergency Provider Internal Medicine; PCP Internal Medicine
DX: B34.9 Viral infection, unspecified (principal); N39.0 Urinary tract infection, site not specified; R53.1 Weakness; R11.2 Nausea with vomiting, unspecified; Z11.52 Encounter for screening for COVID-19; Z20.828 Contact with and (suspected) exposure to other viral communicable diseases; Z79.899 Other long term (current) drug therapy
CPT/HCPCS: 36415; 80053; 81001; 83605; 85027; 87040; 87086; 87635; 96361; 96365; 96375; 99285; J0696; J2405

== ENCOUNTER 2023-02-08 08:14 | Outpatient (AMB) | payer MEDICARE, SELFPAY ==
--- NOTE | 2023-02-08 08:29 | MHC.PC.OV ---
Vital Signs 02/08/23 08:30 Height 5 ft 4 in Weight 119 lb BMI 20.4 BP 110/62 Blood Pressure Location Lt brachial Position Sitting Pulse 72 Pulse Source Pulse Oximeter Pulse Oximetry (%) 98 Oxygen Delivery Method Room Air Intake Visit Reasons: Annual Physical Intake Note: Patient is here today for a physical. Complaint of shortness of breath upon little exertion. 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 Accompanied by: Self / Same As Patient Allergies Iodinated Contrast Media [Contrast Dye] Allergy (Severe, Verified 02/15/23 05:57) Anaphylaxis acetaminophen [Percocet] Allergy (Unknown, Verified 02/15/23 05:57) Rash latex Allergy (Unknown, Verified 02/15/23 05:57) Rash oxycodone [Percocet] Allergy (Unknown, Verified 02/15/23 05:57) Agitated Medication List - Last Reconciled 02/15/23 by Armond Dasilva MD albuterol sulfate 90 mcg/actuation 2 puffs inhalation Q4-6H PRN ascorbate calcium (vitamin C) 600 mg PO DAILY aspirin 81 mg PO DAILY biotin 5 mg PO DAILY cholecalciferol (vitamin D3) 25 mcg PO DAILY diclofenac sodium 50 mg PO BID 90 days famotidine 10 mg PO DAILY meclizine 25 mg PO DAILY PRN ondansetron 4 mg PO Q6-8H PRN simvastatin 20 mg PO BEDTIME spironolactone 25 mg (1/2 x 50 mg) PO DAILY Tobacco use date assessed: 02/08/23 Fall risk assessment: No Falls in past year Last assessed Fall Risk: 02/08/23 Dental Screening Dental Screen Date: 02/08/23 Did you have a dental visit in the last 12 months?: No Did you have a dental problem in the last 6 months where you did not have access to dental care?: No Was dental information given to patient?: No (dentures) HPI Annual Physical HPI Details 83-year-old female presents to the office requesting an annual physical. Patient would also like an electrocardiogram. She is reporting symptoms of fatigue and nonspecific tiredness. [facility] Medical History Essential hypertension Osteoarthritis Hyperlipidemia Breast cancer Peripheral vascular disease Surgical History History of right knee surgery History of retinal detachment History of tonsillectomy Family History Mother No problems noted. Father No problems noted. Maternal Aunt Breast cancer Son Mental health disorder Social History Housing: House Alcohol intake: never Patient Tobacco Use Status: Never used Tobacco e-Cigarette/Vaping Use: Never Used Second Hand Smoke Exposure: No service: No Current occupational status: retired Cognitive needs: No Hearing needs: Yes (hearing aide) Vision needs: Yes (glasses) Questionnaire Thrive Questionnaire Date Thrive assessed: 07/28/21 CALVIN-7 AMB Questionnaire CALVIN-7 Date CALVIN - 7 assessed: 07/28/21 Source: Developed by Drs. Jed Chaves, Gina Arriaza, Rick Prado and colleagues, with an educational claudine from [employer]. Physical exam (Primary Care) Vital Signs: Last Vital Signs Pulse 72 02/08/23 08:30 BP 110/62 02/08/23 08:30 Pulse Ox 98 02/08/23 08:30 Oxygen Delivery Method Room Air 02/08/23 08:30 Care Plan Goal for BP management: Blood pressure is in range. Continue current medications. BMI result Body Mass Index 20.4 Tobacco/Smoking Status: Tobacco use Status Tobacco use date assessed 02/08/23 02/08/23 08:37 Patient Tobacco Use Status Never used Tobacco 02/08/23 08:29 e-Cigarette/Vaping Use Never Used 02/08/23 08:29 Thrive Assessment: Date of Thrive Assessment Date Thrive assessed 07/28/21 02/08/23 08:29 Advance Care Planning discussion: Exists, not on file Date of discussion: 02/08/23 Who was present: Patient Forms completed: Health Care Proxy and MOLST Time spent: 1-15 minutes, not on file Const General: cooperative and healthy appearing Nutritional Appearance: well nourished Orientation/consciousness: patient oriented x3 Limitations: no limitations HENMT Head: Yes normal to inspection Eyes General: appearance normal, both eyes and all related structures Neck Neck: Yes normal visual inspection Chest Chest palpation & inspection: normal palpation of entire chest wall Resp Effort & Inspection: normal respiratory effort Neuro General: patient oriented x3 Office Procedures EKG Details: Normal sinus rhythm. [id number], Complete Assessment and Plan Assessment & Plan (1) Fatigue: Code(s): R53.83 - Other fatigue Qualifiers: Fatigue type: unspecified Qualified Code(s): R53.83 - Other fatigue Plan: Blood work reviewed. (2) Annual physical exam: Code(s): Z00.00 - Encounter for general adult medical examination without abnormal findings Plan: Patient is up-to-date on all her immunizations and screening procedures. Orders: Orders Basic Metabolic Panel 1 Week R53.83 - Other fatigue Complete Blood Count no Diff 1 Week R53.83 - Other fatigue Lipid Panel 1 Week R53.83 - Other fatigue Erythrocyte Sedimentation Rate 1 Week R53.83 - Other fatigue AMB EKG-In Office Today Z00.00 - Encounter for general adult medical examination without abnormal findings, Z13.6 - Encounter for screening for cardiovascular disorders Liver Panel 1 Week R53.83 - Other fatigue Medications: Refilled albuterol sulfate 90 mcg/actuation 2 puffs inhalation Q4-6H PRN 8.5 grams 0RF shortness of breath or wheezing Coding Level of Care Code Est Pt Prev Care >65y(98168) Diagnoses Fatigue, unspecified type R53.83 Fatigue type: unspecified Annual physical exam Z00.00 CPT Codes EKG - CPT: 53939-[id number], Complete ([id number]) Additional Codes Vital Signs *Quality* - Advance Care Planning discussion: Exists, not on file ([id number]) Vital Signs *Quality* - Time spent: 1-15 minutes, not on file ([id number])
[2023-02-08 08:30] VITALS: BP 110/62; PULSE 72; O2SAT 98; BMI 20.4
== END 2023-02-08 09:14 | disposition home or self-care (01) ==
PROVIDERS: PCP Internal Medicine; Visit Provider Internal Medicine
DX: Z00.00 Encounter for general adult medical examination without abnormal findings (principal); R53.83 Other fatigue
CPT/HCPCS: 1124F; 93000; 99397

== ENCOUNTER 2023-03-10 15:22 | Emergency (ER) | payer MEDICARE, SELFPAY ==
--- NOTE | ~2023-03-10 | CT_ITS ---
EXAMINATION: CT HEAD WITHOUT IV CONTRAST CT CERVICAL SPINE WITHOUT IV CONTRAST INDICATION: Fall, head strike COMPARISON: None available. TECHNIQUE: Multidetector CT acquisitions of the head, maxillofacial region, and cervical spine were obtained without IV contrast. Multiplanar reformats were acquired and utilized for image interpretation. This CT examination was performed using dose optimization techniques as appropriate, variously including the following: *Automated exposure control *Adjustment of mA and/or kV according to patient size (this includes techniques or standardized protocols for targeted exams where dose is matched to indication/reason for exam; i.e. extremities or head) *Use of iterative reconstruction technique FINDINGS: HEAD: No acute intracranial hemorrhage or infarct. The dickinson-white matter differentiation is preserved. Diffuse widening of the sulci with associated ex vacuo dilation of the ventricles compatible with global cerebral atrophy. No midline shift or hydrocephalus. No acute extra-axial fluid collections. The osseous structures are unremarkable. Moderate size hematoma involving the right parietal scalp tissues. No orbital pathology. The paranasal sinuses and mastoid air cells are clear. Atherosclerotic calcifications of the bilateral carotid siphons. CERVICAL SPINE: There is no acute fracture and there is no acute subluxation. There is asymmetric widening of the right atlantoaxial articulation which is favored to be degenerative/positional. Otherwise, the craniocervical and atlantoaxial articulations are normal. Diffuse osteopenia. Severe multilevel degenerative changes including endplate osteophytosis, disc space narrowing, uncovertebral hypertrophy, facet arthrosis, and partial ankylosis. There is no prevertebral soft tissue swelling. No significant soft tissue abnormality within the neck. The visualized lung apices are clear. CT/CT cervical spine wo IV con IMPRESSION: 1. No acute intracranial abnormality. 2. Moderate right parietal scalp hematoma. 3. No acute osseous abnormality within the cervical spine. Severe multilevel degenerative changes.
[2023-03-10 15:49] VITALS: BP 141/79; PULSE 75; RESP 16; TEMP 37.3; O2SAT 94; BMI 21.6
--- NOTE | 2023-03-10 15:49 | ED_ITS ---
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 States she was decorating her door when trying to sit back from stool and misjudged and fell backwards down 4 steps with head strike. Denies LOC, nausea or vomiting. Ambulatory after scene. Denies using assistive devices at baseline. Patient was able to drive herself to the emergency department. Denies vision change/loss, SOB, CP, neck/back pain. Denies symptoms prior to fall Onset (ago): hour(s) Related Data Home Medications Medication Instructions Recorded Confirmed ascorbate calcium (vitamin C) 500 600 mg PO DAILY 03/08/20 02/15/23 mg tablet aspirin 81 mg tablet,delayed 81 mg PO DAILY 03/08/20 02/15/23 release biotin 5 mg capsule 5 mg PO DAILY 03/08/20 02/15/23 cholecalciferol (vitamin D3) 25 25 mcg PO DAILY 03/08/20 02/15/23 mcg (1,000 unit) tablet famotidine 10 mg tablet 10 mg PO DAILY 03/08/20 02/15/23 Previous Rx's Medication Instructions Recorded meclizine 25 mg tablet 25 mg PO DAILY PRN dizziness #90 06/28/20 tabs simvastatin 20 mg tablet 20 mg PO BEDTIME #90 caps 12/11/22 ondansetron 4 mg disintegrating 4 mg PO Q6-8H PRN nausea and 01/30/23 tablet vomiting #7 tabs albuterol sulfate 90 mcg/actuation 2 puff inhalation Q4-6H PRN 02/08/23 aerosol inhaler shortness of breath or wheezing #8.5 grams diclofenac sodium 50 mg 50 mg PO BID for pain 90 days #180 02/27/23 tablet,delayed release caps spironolactone 50 mg tablet 25 mg (1/2 x 50 mg) PO DAILY #90 02/27/23 tabs Allergies Allergy/AdvReac Type Severity Reaction Status Date / Time Iodinated Contrast Media Allergy Severe Anaphylaxis Verified 03/10/23 15:52 [Contrast Dye] acetaminophen [Percocet] Allergy Unknown Rash Verified 03/10/23 15:52 latex Allergy Unknown Rash Verified 03/10/23 15:52 oxycodone [Percocet] Allergy Unknown Agitated Verified 03/10/23 15:52 Review of Systems Review of Systems: Constitutional: No Fever, No Chills, No Fatigue, No Malaise ENT/Mouth: No Ear Pain, No Nasal Congestion, No Sinus Pain, No Hoarseness, No sore throat, No Rhinorrhea, No Swallowing Difficulty Eyes: No Eye Pain, No Swelling, No Redness, No Vision Changes Cardiovascular: No Chest Pain, No SOB, No Edema, No Palpitations Respiratory: No Cough, No Dyspnea Gastrointestinal: No Nausea, No Vomiting, No Diarrhea, No Abdominal pain Genitourinary: No Urinary Incontinence/retention Musculoskeletal: No joint pain, No Myalgias, No Joint Swelling Skin: + Skin Lesions, No rash Neuro: No Weakness, No Numbness, No Paresthesias, No Loss of Consciousness, No Dizziness, + Headache Yes all other systems are reviewed and are negative Constitutional: Constitutional: Reports as per [facility] Past Medical History Attestation statement: The following information was validated with the patient. Source: old records reviewed Medical History Essential hypertension Osteoarthritis Hyperlipidemia Breast cancer Peripheral vascular disease Surgical History History of right knee surgery History of retinal detachment History of tonsillectomy Family History Family History Mother No problems noted. Father No problems noted. Maternal Aunt Breast cancer Son Mental health disorder Social History Housing: House Alcohol intake: never Patient Tobacco Use Status: Never used Tobacco e-Cigarette/Vaping Use: Never Used Second Hand Smoke Exposure: No Advance Directives: No Advance Directives Information Provided: No service: No Current occupational status: retired Cognitive needs: No Hearing needs: Yes (hearing aide) Vision needs: Yes (glasses) Physical Exam ED Vital Signs: Vital Signs - 24 hr 03/10/23 15:49 Temperature 99.1 F Pulse Rate 75 Respiratory Rate 16 Blood Pressure 141/79 H Pulse Oximetry 94 Oxygen Delivery Method Room Air BMI result Body Mass Index 21.6 Const General: cooperative, healthy appearing and no acute distress Orientation/consciousness: patient oriented x3 Limitations: no limitations HENMT Head: Yes normal to inspection, No Reese's sign, Yes hematoma (Posterior scalp with overlying abrasion. No laceration.), No palpable skull fracture and No raccoon eyes Ears: hearing grossly normal bilaterally General nose exam: Normal external nose present Face and sinus: Yes normal facial exam Mouth: Normal oral and palatal mucosa present Throat: Yes posterior oropharynx normal, Yes tonsils normal, Yes uvula midline, No peritonsillar mass, No uvula laterally displaced and No uvular edema Eyes General: appearance normal, both eyes and all related structures Pupils: Dilated pupils on the right (Nonreactive, baseline, from multiple surgeries) EOM: EOMs intact bilaterally Neck Other: No midline cervical spinous tenderness to palpation Neck: Yes normal visual inspection and Yes no meningeal signs Resp Effort & Inspection: normal respiratory effort and no respiratory distress Auscultation: clear to auscultation bilaterally Cardio Rate: regular rate Heart sounds: S1 normal heart sound present and S2 normal heart sound present GI Inspection: Yes normal to inspection Palpation (GI): Soft to palpation, nontender, no guarding and not rigid General: Yes no CVA tenderness Back/Spine/Pelvis Other: No midline cervical/thoracic/lumbar spinous tenderness/step-off or deformity Back: no CVA tenderness Skin Rashes: no rashes Wounds: no wounds Neuro Other: Strength intact throughout. No saddle anesthesia. Sensation intact to light touch. Neurovascular intact distally General: patient oriented x3, gait normal, tone normal, moves all extremities, no meningeal signs, no focal motor deficits and CN's II-XI intact bilaterally Cranial nerves: Yes CN's II-XII intact bilaterally and Yes Bilaterally intact EOM present Gait exam (Neuro): Normal gait present Motor exam (neuro): 5/5 motor strength present throughout and no tremor noted Coordination: [id number] test normal Romberg Test: Negative Extrem General: Yes normal to inspection Course Course Course Narrative: RME:?83 yo female presents to ED s/p fall down 3 steps while putting up xmas decorations outside of her house. Endorses head strike on sidewalk. Denies LOC. No AC. Endorses LIND. Denies vision changes, dizziness, N/V. PE: AOx3. 1inch x 1inch bump to posterior head with overlying 1cm laceration. no active bleeding. PERRLA. Strength 5/5 throughout. Plan: imaging Full HPI, ROS and PE to be performed by the primary ED provider. 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 On exam vital signs stable, NAD, nontoxic appearing, physical exam as noted above with posterior scalp hematoma. No palpable step-off. No midline spinous tenderness throughout. No focal neuro deficits. Concern for close head injury/concussion with hematoma. Rule out ICH. Lower suspicion for SAH, CVA/TIA plan: Head/C-spine CT Please refer to course for remaining clinical decision making, interpretation of labs/imaging results, and discussions with consultants and/or family members. Differential Diagnosis Differential Diagnoses: The differential diagnosis associated with the presentation includes As above Admission/Observation Consideration of admission/observation: Escalation of care including admission/observation considered Lab Data [facility] Lab Attestation statement: I reviewed the patient's lab results. Radiology Impression Discussion of test interpretation with radiology: I have reviewed the radiologist's reading. External Record Review External record reviewed: Inpatient record, Office record, Outpatient record, Prior outpatient labs, Prior outpatient radiology, Primary care record and Outside ED record Tests considered The following testing was considered but not selected: As above Prescription Management I considered prescription management with: Pain Medication Discharge Plan Discharge Clinical Impression: Head injury, Hematoma Patient Disposition: Home, Self-Care Instructions: Head Injury (ED) Additional Instructions: Your CAT scans do not show any acute findings. You do have degenerative changes of her spine as well as a hematoma Ice your head Take Tylenol for pain Follow-up with your doctor If you develop constant worsening headache, nausea/vomiting, weakness return to the ED Prescriptions: No Action meclizine 25 mg tablet 25 mg PO DAILY PRN (Reason: dizziness) Qty: 90 0RF simvastatin 20 mg tablet 20 mg PO BEDTIME Qty: 90 0RF diclofenac sodium 50 mg tablet,delayed release (DR/EC) 50 mg PO BID 90 Days Qty: 180 2RF spironolactone 50 mg tablet 25 mg PO DAILY Qty: 90 1RF ondansetron 4 mg tablet,disintegrating 4 mg PO Q6-8H PRN (Reason: nausea and vomiting) Qty: 7 0RF famotidine 10 mg tablet 10 mg PO DAILY aspirin 81 mg tablet,delayed release (DR/EC) 81 mg PO DAILY cholecalciferol (vitamin D3) 25 mcg (1,000 unit) tablet 25 mcg PO DAILY ascorbate calcium (vitamin C) 500 mg tablet 600 mg PO DAILY biotin 5 mg capsule 5 mg PO DAILY albuterol sulfate 90 mcg/actuation HFA aerosol inhaler 2 puff inhalation Q4-6H PRN (Reason: shortness of breath or wheezing) Qty: 8.5 0RF Referrals: Armond Dasilva MD [Primary Care Provider] - 3 days Interventions: ED Discharge Assessment Last Done: 03/10/23 18:12 Discharge Date/Time: 03/10/23 18:12
== END 2023-03-10 18:12 | disposition home or self-care (01) ==
PROVIDERS: Emergency Provider Emergency Medicine Emergency Medical Services; PCP Internal Medicine
DX: S09.90XA Unspecified injury of head, initial encounter (principal); S00.03XA Contusion of scalp, initial encounter; W10.8XXA Fall (on) (from) other stairs and steps, initial encounter; I10 Essential (primary) hypertension; E78.5 Hyperlipidemia, unspecified; Z85.3 Personal history of malignant neoplasm of breast; Y93.89 Activity, other specified; Y92.9 Unspecified place or not applicable; Y99.9 Unspecified external cause status; Z79.82 Long term (current) use of aspirin; Z79.02 Long term (current) use of antithrombotics/antiplatelets; Z79.899 Other long term (current) drug therapy
CPT/HCPCS: 70450; 72125; 99282; 99284

== ENCOUNTER 2023-05-01 09:23 | Outpatient (AMB) | payer MEDICARE, SELFPAY ==
[2023-05-01 09:32] VITALS: BP 152/80; PULSE 64; O2SAT 98; BMI 20.7
--- NOTE | 2023-05-01 09:32 | MHC.PC.OV ---
Vital Signs 05/01/23 09:32 05/01/23 10:12 Height 5 ft 4 in Weight 120 lb 6 oz BMI 20.7 BP 152/80 H 140/78 H Blood Pressure Location Lt brachial Position Sitting Pulse 64 Pulse Source Pulse Oximeter Pulse Oximetry (%) 98 Oxygen Delivery Method Room Air Intake Visit Reasons: dr hunt left eye cataract surgery 05/07/22 Intake Note: patient here for a Pre-op for Left Eye Cataract surgery scheduled with Dr. Melton on 05/07/23. No EKG or labs required. [employer] Manager Required: No Accompanied by: Self / Same As Patient Allergies Iodinated Contrast Media [Contrast Dye] Allergy (Severe, Verified 05/01/23 09:56) Anaphylaxis acetaminophen [Percocet] Allergy (Unknown, Verified 05/01/23 09:56) Rash latex Allergy (Unknown, Verified 05/01/23 09:56) Rash oxycodone [Percocet] Allergy (Unknown, Verified 05/01/23 09:56) Agitated Medication List - Last Reconciled 05/01/23 by Mo Bowden PA-C albuterol sulfate 90 mcg/actuation 2 puffs inhalation Q4-6H PRN ascorbate calcium (vitamin C) 600 mg PO DAILY aspirin 81 mg PO DAILY biotin 5 mg PO DAILY cholecalciferol (vitamin D3) 25 mcg PO DAILY diclofenac sodium 50 mg PO BID 90 days famotidine 10 mg PO DAILY meclizine 25 mg PO DAILY PRN ondansetron 4 mg PO Q6-8H PRN simvastatin 20 mg PO BEDTIME spironolactone 25 mg (1/2 x 50 mg) PO DAILY Tobacco use date assessed: 05/01/23 Fall risk assessment: No Falls in past year Last assessed Fall Risk: 05/01/23 Dental Screening Dental Screen Date: 05/01/23 Did you have a dental visit in the last 12 months?: No Did you have a dental problem in the last 6 months where you did not have access to dental care?: No Was dental information given to patient?: No (Dentures) HPI dr hunt left eye cataract surgery 05/07/22 HPI Details Patient is an 83-year-old female here today for preop visit. Patient is due for left eye cataract removal on May 07. Patient has a past medical history significant for hypertension, breast cancer, hyperlipidemia and osteoarthritis, PVD. Patient has no history of CT, Congestive heart failure for CVA. Patient is not on any anticoagulation, does take aspirin daily. Patient's most recent EKG done January 2023 showing stable findings. Hypertension: Blood pressure slightly elevated today in office. She does report feeling somewhat anxious about upcoming procedure. Was previously on full dose of Aldactone though had hypotension.. Patient asymptomatic without any chest discomforts, dizziness or headaches. [facility] Medical History Essential hypertension Osteoarthritis Hyperlipidemia Breast cancer Peripheral vascular disease Surgical History History of right knee surgery History of retinal detachment History of tonsillectomy Family History Mother No problems noted. Father No problems noted. Maternal Aunt Breast cancer Son Mental health disorder Social History Housing: House Alcohol intake: never Patient Tobacco Use Status: Never used Tobacco e-Cigarette/Vaping Use: Never Used Second Hand Smoke Exposure: No service: No Current occupational status: retired Cognitive needs: No Hearing needs: Yes (hearing aide) Vision needs: Yes (glasses) Questionnaire PHQ-9 Over the last 2 weeks, how often have you been bothered by any of the following problems? 1. Little interest or pleasure in doing things: not at all 2. Feeling down, depressed, or hopeless: not at all 3. Trouble falling or staying asleep, or sleeping too much: not at all 4. Feeling tired or having little energy: not at all 5. Poor appetite or overeating: not at all 6. Feeling bad about yourself - or that you are a failure or have let yourself or your family down: not at all 7. Trouble concentrating on things, such as reading the newspaper or watching television: not at all 8. Moving or speaking so slowly that other people could have noticed. Or the opposite - being so fidgety or restless that you have been moving around a lot more than usual: not at all 9. Thoughts that you would be better off or of hurting yourself in some way: not at all Total score: 0 Depression Screening Interpretation: Negative Depression Screening Done: Yes 92347 - PHQ-9 Billing: Yes Source: Developed by Drs. Jed Chaves, Gina Arriaza, Rick Prado and colleagues, with an educational claudine from [employer] Thrive Questionnaire Date Thrive assessed: 05/01/23 I am a: Patient What is your living situation today?: I have a steady place to live Within the past 12 months, did the food you bought not last and you didn't have the money to get more?: Never true Within the past 12 months, did you worry whether your food would run out before you got money to buy more?: Never true Do you have trouble paying for medicines?: No Do you have trouble getting transportation to medical appointments?: No Do you have trouble paying your heating and electricity bill?: No Do you have trouble taking care of your child, family member or friend?: No Do you have trouble with day-to-day activities such as bathing, preparing meals, shopping, managing finances, etc.?: No Are you currently unemployed and looking for a job?: No Are you interested in more education?: No Please select the resources that you would like help with: None AUDIT C Alcohol Use Questionnaire (AUDIT-C) 1. How often do you have a drink containing alcohol?: Never 3. How often do you have six or more drinks on one occasion?: Never Total Score: 0 CALVIN-7 AMB Questionnaire CALVIN-7 Date CALVIN - 7 assessed: 05/01/23 Feeling nervous, anxious, or on edge: 0 = Not at all Not being able to stop or control worryin = Not at all Worrying too much about different things: 0 = Not at all Trouble relaxin = Not at all Being so restless that it is hard to sit still: 0 = Not at all Becoming easily annoyed or irritable: 0 = Not at all Feeling afraid as if something awful might happen: 0 = Not at all Total CALVIN-7 score (0-4 normal; 5-9 mild; 10-14 moderate; 15-21 severe): 0 Source: Developed by Gina Fairchild Kurt Kroenke and colleagues, with an educational claudine from [employer] CALVIN-7 Assessment Billing CALVIN-7 Assessment Tool: CALVIN-7 Assessment 44392 Review of Systems Const Denies headache(s) Eyes Denies loss of vision ENT Denies vertigo, Denies dizziness, Denies headache(s) and Denies sore throat Card Denies chest pain, Denies leg edema and Denies lightheadedness Resp Denies cough, Denies hemoptysis and Denies wheezing GI Denies abdominal pain, Denies melena, Denies constipation, Denies diarrhea and Denies vomiting Denies urinary frequency, Denies dysuria and Denies urinary urgency Musc Denies arthralgias, Denies joint swelling, Denies numbness and Denies tingling Neuro Denies Abnormal speech present, Denies behavioral changes, Denies vertigo, Denies dizziness, Denies headache(s), Denies loss of vision, Denies memory loss, Denies numbness and Denies tingling Psych Denies anxiety, Denies behavioral changes, Denies depression, Denies memory loss and Denies panic attacks Mason/Lymph Denies easy bleeding and Denies easy bruising Aller/Immun Denies wheezing Physical exam (Primary Care) Vital Signs: Last Vital Signs Pulse 64 05/01/23 09:32 BP 140/78 H 05/01/23 10:12 Pulse Ox 98 05/01/23 09:32 Oxygen Delivery Method Room Air 05/01/23 09:32 BMI result Body Mass Index 20.7 Tobacco/Smoking Status: Tobacco use Status Tobacco use date assessed 05/01/23 05/01/23 09:42 Patient Tobacco Use Status Never used Tobacco 05/01/23 09:36 e-Cigarette/Vaping Use Never Used 05/01/23 09:36 PHQ-9: PHQ-9 Score PHQ-9: Total score 0 05/01/23 10:01 Depression Screening Interpretation: Negative Thrive Assessment: Date of Thrive Assessment Date Thrive assessed 05/01/23 05/01/23 09:39 Const General: healthy appearing, no acute distress, alert and awake Nutritional Appearance: well nourished Orientation/consciousness: oriented to person, oriented to place and oriented to time HENMT Ears: TM's normal bilaterally General nose exam: Normal nasal mucous membranes and turbinates present Eyes Conjunctivae: conjunctivae normal Sclerae: sclerae normal Pupils: Equal, round and reactive pupils present Neck Neck: Yes no lymphadenopathy and Yes no JVD Thyroid: Thyroid normal Carotids: no bruits Resp Effort & Inspection: normal respiratory effort and not tachypneic Auscultation: no crackles, no rales, no rhonchi and no wheezes Cardio Rate: regular rate Rhythm: regular rhythm Heart sounds: no murmurs and normal S1 and S2 GI Palpation (GI): Soft to palpation, nontender, no hepatomegaly and no splenomegaly Auscultation: normal bowel sounds Skin General skin exam: no rashes or lesions noted and dry skin Neuro General: oriented to person, oriented to place and oriented to time Cranial nerves: Yes Equal, round and reactive pupils present Speech: No Abnormal speech present Gait exam (Neuro): Normal gait present Motor exam (neuro): no tremor noted Extrem Right upper extremity: full ROM Left upper extremity: full ROM Right lower extremity: full ROM; no edema Left lower extremity: full ROM; no edema Psych Mental Status: mental status grossly normal Speech and movement: Normal speech and movement present Affect: normal affect Attitude: cooperative Thought process: Normal thought process present Assessment and Plan Assessment & Plan (1) Pre-op evaluation: Code(s): Z01.818 - Encounter for other preprocedural examination Plan: Patient is medically clear for needed left eye procedure. Patient labs and vitals stable. (2) Left cataract: Code(s): H26.9 - Unspecified cataract Qualifiers: Age-related cataract type: unspecified Cataract type: age-related Qualified Code(s): H25.9 - Unspecified age-related cataract Plan: As above (3) Essential hypertension: Code(s): I10 - Essential (primary) hypertension Plan: Patient's blood pressure slightly elevated today in office. Continues on 12.5 mg of Aldactone. She reports that home blood pressures have been fairly stable 130 systolic. Advised to continue more monitoring at home with goal blood pressure to be below 140/90. If consistently above 140/90 will consider restarting full dose of spironolactone. Coding Level of Care Code Est Pt Level 4 (48909) Diagnoses Pre-op evaluation Z01.818 Senile cataract of left eye, unspecified age-related cataract type H25.9 Age-related cataract type: unspecified Cataract type: age-related Essential hypertension I10 Additional Codes CALVIN-7 Assessment Billing - CALVIN-7 Assessment Tool: CALVIN-7 Assessment [id number] ([id number])
[2023-05-01 10:12] VITALS: BP 140/78
== END 2023-05-01 10:25 | disposition home or self-care (01) ==
PROVIDERS: PCP Internal Medicine; Visit Provider Physician Assistant
DX: H25.9 Unspecified age-related cataract (principal); I10 Essential (primary) hypertension; Z01.818 Encounter for other preprocedural examination
CPT/HCPCS: 99214

== ENCOUNTER 2023-05-07 08:00 | Day surgery (SDC) | payer MEDICARE, SELFPAY ==
[2023-05-02 10:16] VITALS: BMI 20.7
--- NOTE | 2023-05-03 11:57 | HO.ANESPROP2 ---
Documented by User: Leonela Mora NP 05/03/23 11:58 HPI - Anesthesia Eval Consult details Narrative: 83yo F for Left Cataract Extraction IOL Insertion Medically cleared No previous cataract on record PMF Active Problems Active Problems: All Active Problems (Updated 05/02/23 @ 10:14 by Aurora Marmolejo RN) Left cataract (Acute) Pre-op evaluation (Acute) Bronchitis (Acute) Fatigue (Acute) Cellulitis of right forearm (Acute) Annual physical exam (Acute) Viral syndrome (Acute) Essential hypertension (Acute) Breast cancer (Acute) Osteoarthritis (Acute) Hyperlipidemia (Acute) Peripheral vascular disease (Acute) Past Medical History Medical History Pneumonia Essential hypertension Osteoarthritis Hyperlipidemia Breast cancer Peripheral vascular disease Family History Family History Mother No problems noted. Father No problems noted. Maternal Aunt Breast cancer Son Mental health disorder Surgical History Surgical History (Updated 05/07/23 @ 10:21 by Daisy Villalpando MD) Breast cancer, left breast Hx of right cataract extraction History of right knee surgery History of retinal detachment History of tonsillectomy Social History Social History Housing: House Are you a primary medicare specialist to a significant other at home: No Do you presently have visiting nurse or other home services: No Alcohol intake: never Patient Tobacco Use Status: Never used Tobacco e-Cigarette/Vaping Use: Never Used Second Hand Smoke Exposure: No Use of substances other than those prescribed or required for medical reasons: No Are you DNR?: No Advance Directives: No Advance Directives Information Provided: Yes Advance Directives on File: No Recently lost weight without trying: No Eating poorly because of decreased appetite: No Nutrition Risks: Surgical patient >75years Poor oral hygiene: No (upperm & lower full denture) service: No Current occupational status: retired Cognitive needs: No Hearing needs: Yes (hearing aide) Vision needs: Yes (glasses) Meds Allergies Allergy/AdvReac Type Severity Reaction Status Date / Time Iodinated Contrast Media Allergy Severe Anaphylaxis Verified 05/07/23 09:43 [Contrast Dye] acetaminophen [Percocet] Allergy Intermediate Rash Verified 05/07/23 09:43 latex Allergy Intermediate Rash Verified 05/07/23 09:43 oxycodone [Percocet] Allergy Intermediate Agitation Verified 05/07/23 09:43 Home Medications Medication Instructions Recorded Confirmed Last Taken Type ascorbate calcium (vitamin C) 500 600 mg PO DAILY 03/08/20 05/02/23 Unknown History mg tablet aspirin 81 mg tablet,delayed 81 mg PO DAILY 03/08/20 05/02/23 Unknown History release biotin 5 mg capsule 5 mg PO DAILY 03/08/20 05/02/23 Unknown History cholecalciferol (vitamin D3) 25 25 mcg PO DAILY 03/08/20 05/02/23 Unknown History mcg (1,000 unit) tablet famotidine 10 mg tablet 10 mg PO DAILY 03/08/20 05/02/23 05/07/23 06:30 History Exam Height,Weight and Vital Signs: Height 5 ft 4 in Weight 54.601 kg Assessment and Plan Assessment Anesthesia Assessment: Chart Reviewed Documented by User: Daisy Villalpando MD 05/07/23 10:24 [facility] Active Problems Active Problems: All Active Problems (Updated 05/07/23 @ 10:09 by Daisy Villalpando MD) Left cataract (Acute) Pre-op evaluation (Acute) Bronchitis (Acute) Fatigue (Acute) Cellulitis of right forearm (Acute) Annual physical exam (Acute) Essential hypertension (Acute) Breast cancer (Acute) H/o left breast excision of 3 lumps and 1 axillary lymph node(Free of cancer) Osteoarthritis (Acute) Hyperlipidemia (Acute) Peripheral vascular disease (Acute) H/o dizziness. Meclizine prn Past Medical History Medical History Pneumonia Essential hypertension Osteoarthritis Hyperlipidemia Breast cancer Peripheral vascular disease Family History Family History Mother No problems noted. Father No problems noted. Maternal Aunt Breast cancer Son Mental health disorder Family history of problems with anesthesia: No Surgical History Surgical History (Updated 05/07/23 @ 10:21 by Daisy Villalpando MD) Breast cancer, left breast Hx of right cataract extraction History of right knee surgery History of retinal detachment History of tonsillectomy History of Problems with Anesthesia: No Social History Social History Housing: House Are you a primary medicare specialist to a significant other at home: No Do you presently have visiting nurse or other home services: No Alcohol intake: never Patient Tobacco Use Status: Never used Tobacco e-Cigarette/Vaping Use: Never Used Second Hand Smoke Exposure: No Use of substances other than those prescribed or required for medical reasons: No Are you DNR?: No Advance Directives: No Advance Directives Information Provided: Yes Advance Directives on File: No Recently lost weight without trying: No Eating poorly because of decreased appetite: No Nutrition Risks: Surgical patient >75years Poor oral hygiene: No (upperm & lower full denture) service: No Current occupational status: retired Cognitive needs: No Hearing needs: Yes (hearing aide) Vision needs: Yes (glasses) Meds Allergies Allergy/AdvReac Type Severity Reaction Status Date / Time Iodinated Contrast Media Allergy Severe Anaphylaxis Verified 05/07/23 09:43 [Contrast Dye] acetaminophen [Percocet] Allergy Intermediate Rash Verified 05/07/23 09:43 latex Allergy Intermediate Rash Verified 05/07/23 09:43 oxycodone [Percocet] Allergy Intermediate Agitation Verified 05/07/23 09:43 Home Medications Medication Instructions Recorded Confirmed Last Taken Type ascorbate calcium (vitamin C) 500 600 mg PO DAILY 03/08/20 05/02/23 Unknown History mg tablet aspirin 81 mg tablet,delayed 81 mg PO DAILY 03/08/20 05/02/23 Unknown History release biotin 5 mg capsule 5 mg PO DAILY 03/08/20 05/02/23 Unknown History cholecalciferol (vitamin D3) 25 25 mcg PO DAILY 03/08/20 05/02/23 Unknown History mcg (1,000 unit) tablet famotidine 10 mg tablet 10 mg PO DAILY 03/08/20 05/02/23 05/07/23 06:30 History Exam Height,Weight and Vital Signs: Height 5 ft 4 in Weight 54.601 kg Vital Signs Temp Pulse Resp BP Pulse Ox O2 Del Method 05/07/23 09:28 98.4 F 66 16 160/82 H 98 Room Air Airway Mallampati Class: II TM Dist: >3cm Neck ROM: Full Denture: Upper and Lower Loose/Missing/Broken Teeth: Yes (Full dentures) Heart: RRR ?murmur Lungs: CTAB Assessment and Plan Assessment Anesthesia Assessment: Anesthesia Plan Discussed Final Anesthetic Review Family History of Problems with Anesthesia: No History of Problems with Anesthesia: No NPO: Yes ASA Class: III Final Preanesthetic Review: No Changes in Pt Med Stat, Meds/Allgs Chart Reviewed, Consent Obtained/Reviewed and Anes Risks/Benef Reviewed Patient Risk: Intermediate Procedure Risk: Low Assessment/Block/Sedation in SS: Assess/Block/Sedation-SS Anesthetic Plan Anesthetic Plan: MAC: Disposition: Standard PACU
--- NOTE | 2023-05-04 08:21 | MHC.SHP ---
Pre-Procedural Eval Section A Date of Service: 05/04/23 The patient is an INPATIENT: No Changes since office visit: No Cold of Flu in the past 2 weeks, No New Medical Problems, No Changes in Medication and No Patient answered all questions The History & Physical has been completed within 30 days and I have reviewed it.: Yes Section B Chief Complaint: Age-related nuclear cataract, left eye Allergies: Allergies Allergy/AdvReac Type Severity Reaction Status Date / Time Iodinated Contrast Media Allergy Severe Anaphylaxis Verified 05/01/23 09:56 [Contrast Dye] acetaminophen [Percocet] Allergy Intermediate Rash Verified 05/02/23 10:15 latex Allergy Intermediate Rash Verified 05/02/23 10:15 oxycodone [Percocet] Allergy Intermediate Agitation Verified 05/02/23 10:15 Plan Diagnosis/Plan: Unchanged I have reviewed the history and physical and performed a pertinent physical examination on my patient. No changes have occurred unless specified. Time Spent With Patient Time: Total time managing care of this patient today ____ minutes.
[2023-05-07 09:18] VITALS: BMI 21.1
[2023-05-07 09:28] VITALS: BP 160/82; PULSE 66; RESP 16; TEMP 36.9; O2SAT 98
[2023-05-07] MEDS: Tetracaine HCl/PF 0.5% Oph Sol 4 ML DROPS 1 DROP EYE-LEFT (09:33)
[2023-05-07] MEDS: Cyclopentolate 1 % Ophth Sol 2 ML DRPBTL 1 DROP EYE-LEFT ×3 (09:36→09:49)
[2023-05-07] MEDS: Tropicamide 1 % Ophth Sol 3 ML BTL 1 DROP EYE-LEFT ×3 (09:37→09:50)
[2023-05-07] MEDS: Ketorolac Tromethamine 0.5% Op 5 ML DROPS 1 DROP EYE-LEFT ×3 (09:41→09:51)
[2023-05-07] MEDS: Phenylephrine HCL 2.5% Oph SoL 2 ML BOTTLE 1 DROP EYE-LEFT ×3 (09:42→09:52)
[2023-05-07] MEDS: Lactated Ringers 500 ML 50 ML IV (09:42)
--- NOTE | 2023-05-07 10:40 | MHC.SHP ---
Pre-Procedural Eval Section A Date of Service: 05/07/23 The patient is an INPATIENT: No Changes since office visit: No Cold of Flu in the past 2 weeks, No New Medical Problems, No Changes in Medication and No Patient answered all questions The History & Physical has been completed within 30 days and I have reviewed it.: Yes Section B Chief Complaint: Age-related nuclear cataract, left eye Allergies: Allergies Allergy/AdvReac Type Severity Reaction Status Date / Time Iodinated Contrast Media Allergy Severe Anaphylaxis Verified 05/07/23 09:43 [Contrast Dye] acetaminophen [Percocet] Allergy Intermediate Rash Verified 05/07/23 09:43 latex Allergy Intermediate Rash Verified 05/07/23 09:43 oxycodone [Percocet] Allergy Intermediate Agitation Verified 05/07/23 09:43 Plan Diagnosis/Plan: Unchanged I have reviewed the history and physical and performed a pertinent physical examination on my patient. No changes have occurred unless specified. Time Spent With Patient Time: Total time managing care of this patient today ____ minutes.
--- NOTE | 2023-05-07 10:41 | HO.PNOPHT ---
Ophthalmology Procedure Procedure Date of Service: 05/07/23 Ophthalmology Viscoelastic: Healcarrie Robinst Dual Pack Pro Ophthalmology Lenses: TECHERMINIO [id number] (19) Procedure Notes: PREOPERATIVE DIAGNOSIS: Decreased visual acuity left eye secondary to cataract POSTOPERATIVE DIAGNOSIS: Same PROCEDURE: Left cataract extraction with intraocular lens insertion SURGEON: Alton Villanueva M.D. ANESTHESIA: Topical/MAC ESTIMATED BLOOD LOSS: None COMPLICATIONS: None After obtaining informed consent, the patient was brought to the operation room suite and placed in the supine position. After adequate sedation per anesthesia, topical drops of Tetracaine were given to the left eye. The eye was then prepped and draped in the usual sterile fashion. The operating room microscope was then positioned over the operative eye and a lid speculum placed. A paracentesis was created. Viscoelastic was then instilled into the anterior chamber. A three plane incision was then created temporally, utilizing a 2.85 mm keratome. Capsulotomy forceps were then utilized to create a circular tear capsulotomy. Hydrodissection and hydrodelineation were carried out until adequate mobilization of the nucleus occurred. Phacoemulsification was then utilized to remove the dense central nucleus followed by removal of the cortical material utilizing the automated aspiration irrigation unit. Viscoat elastic was instilled into the posterior capsular bag followed by placement of a posterior chamber intraocular lens without difficulty. The residual Viscoat elastic was then removed utilizing the automated IA machine. The wound was check and found to be watertight. The patient tolerated the procedure well and the lid speculum was removed. Intracameral injection of Vigamox 0.1 mL followed by a subtenon injection of Kenalog-40 0.2 mL were administered. The patient will be seen in the a.m.
[2023-05-07 11:05] VITALS: BP 155/83; PULSE 63; RESP 18; TEMP 36.8; O2SAT 96
[2023-05-07 11:10] VITALS: BP 164/79; PULSE 63; RESP 18; TEMP 36.8; O2SAT 94
== END 2023-05-07 11:25 | disposition home or self-care (01) ==
PROVIDERS: PCP Internal Medicine; Visit Provider Ophthalmology
PROC: (CPT 66985; principal; 2023-05-07 10:00)
DX: H25.12 Age-related nuclear cataract, left eye (principal); H54.7 Unspecified visual loss; Z96.1 Presence of intraocular lens; I10 Essential (primary) hypertension; E78.00 Pure hypercholesterolemia, unspecified; Z79.899 Other long term (current) drug therapy; Z85.3 Personal history of malignant neoplasm of breast; Z88.5 Allergy status to narcotic agent; Z91.040 Latex allergy status
CPT/HCPCS: 66984; J3010; J3301; V2632

== ENCOUNTER 2023-05-31 09:09 | Outpatient (AMB) | payer MEDICARE, SELFPAY ==
--- NOTE | 2023-05-31 09:14 | MHC.PC.OV ---
Vital Signs 05/31/23 09:16 Height 5 ft 4 in Weight 117 lb 6 oz BMI 20.1 BP 130/60 Blood Pressure Location Lt brachial Position Sitting Pulse 61 Pulse Source Pulse Oximeter Pulse Oximetry (%) 95 Oxygen Delivery Method Room Air Intake Visit Reasons: 4 month f/u Intake Note: Patient is here to follow up on HTN, Hyperlipidemia. Complaint of bright yellow urine, with some burning sensation and odor. 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 Financial Legal Assistant: Not Required per policy Accompanied by: Self / Same As Patient Allergies Iodinated Contrast Media [Contrast Dye] Allergy (Severe, Verified 05/31/23 21:02) Anaphylaxis acetaminophen [Percocet] Allergy (Intermediate, Verified 05/31/23 21:02) Rash latex Allergy (Intermediate, Verified 05/31/23 21:02) Rash oxycodone [Percocet] Allergy (Intermediate, Verified 05/31/23 21:02) Agitation Medication List - Last Reconciled 05/31/23 by Armond Dasilva MD albuterol sulfate 90 mcg/actuation 2 puffs inhalation Q4-6H PRN ascorbate calcium (vitamin C) 600 mg PO DAILY aspirin 81 mg PO DAILY biotin 5 mg PO DAILY cholecalciferol (vitamin D3) 25 mcg PO DAILY diclofenac sodium 50 mg PO BID 90 days famotidine 10 mg PO DAILY meclizine 25 mg PO DAILY PRN ondansetron 4 mg PO Q6-8H PRN phenazopyridine (Pyridium) 200 mg PO TID 3 days simvastatin 20 mg PO BEDTIME spironolactone 50 mg PO DAILY sulfamethoxazole-trimethoprim 800-160 mg (Bactrim DS) 1 tab PO BID 7 days Tobacco use date assessed: 05/31/23 Fall risk assessment: No Falls in past year Last assessed Fall Risk: 05/31/23 Dental Screening Dental Screen Date: 05/01/23 HPI 4 month f/u HPI Details 83 yr old woman presents to the office for a sick visit. Reports passing high colored urine for the past few days. Occ burning and increased frequency of urination. No discharge. No fever or chills. No nausea or vomiting [facility] Medical History (Updated 05/07/23 @ 10:20 by Daisy Villalpando MD) Pneumonia Essential hypertension Osteoarthritis Hyperlipidemia Breast cancer Peripheral vascular disease Surgical History (Updated 05/31/23 @ 09:25 by TONY Strickland) History of left cataract surgery Breast cancer, left breast Hx of right cataract extraction History of right knee surgery History of retinal detachment History of tonsillectomy Family History Mother No problems noted. Father No problems noted. Maternal Aunt Breast cancer Son Mental health disorder Social History Housing: House Are you a primary healthcare corporate account director to a significant other at home: No Do you presently have visiting nurse or other home services: No Alcohol intake: never Patient Tobacco Use Status: Never used Tobacco e-Cigarette/Vaping Use: Never Used Second Hand Smoke Exposure: No service: No Current occupational status: retired Cognitive needs: No Hearing needs: Yes (hearing aide) Vision needs: Yes (glasses) Questionnaire Thrive Questionnaire Date Thrive assessed: 05/01/23 CALVIN-7 AMB Questionnaire CALVIN-7 Date CALVIN - 7 assessed: 05/01/23 Source: Developed by Drs. Jed Chaves, Gina Arriaza, Rick Prado and colleagues, with an educational claudine from [employer]. Physical exam (Primary Care) Vital Signs: Last Vital Signs Pulse 61 05/31/23 09:16 BP 130/60 05/31/23 09:16 Pulse Ox 95 05/31/23 09:16 Oxygen Delivery Method Room Air 05/31/23 09:16 BMI result Body Mass Index 20.1 Tobacco/Smoking Status: Tobacco use Status Tobacco use date assessed 05/31/23 05/31/23 09:15 Patient Tobacco Use Status Never used Tobacco 05/31/23 09:15 e-Cigarette/Vaping Use Never Used 05/31/23 09:15 Thrive Assessment: Date of Thrive Assessment Date Thrive assessed 05/01/23 05/31/23 09:15 Const General: cooperative and healthy appearing Nutritional Appearance: well nourished Orientation/consciousness: patient oriented x3 Limitations: no limitations HENMT Head: Yes normal to inspection Eyes General: appearance normal, both eyes and all related structures Neck Neck: Yes normal visual inspection Chest Chest palpation & inspection: normal palpation of entire chest wall Resp Effort & Inspection: normal respiratory effort Other: No CV tenderenss Neuro General: patient oriented x3 Results AMB Urinalysis, Automated UA Leukoctes 3 Rosalino/uL Last Edit by Winston Finley Erika on 05/31/23 10:18 UA Nitrite Positive Last Edit by Winston Finley [facility] on 05/31/23 10:18 UA Urobilinogen 0 mg/dL Last Edit by Winston Finley [facility] on 05/31/23 10:18 UA Protein 1 mg/dL Last Edit by Winston Finley [facility] on 05/31/23 10:18 UA pH 5.5 Last Edit by Winston Finley [facility] on 05/31/23 10:18 UA Blood 3 Luis/uL Last Edit by Winston Finley [facility] on 05/31/23 10:18 UA Specific [place] 1.030 Last Edit by Winston Finley [facility] on 05/31/23 10:18 UA Ketone Positive Last Edit by Winston Finley [facility] on 05/31/23 10:18 UA Bilirubin 0 mg/dL Last Edit by Winston Finley [facility] on 05/31/23 10:18 UA Glucose 0 mg/dL Last Edit by Winston Finley [facility] on 05/31/23 10:18 Results Reviewed Results Reviewed: Laboratory Last Values Urine pH (Auto) 5.5 05/31/23 09:30 Specific [place] (Auto) 1.030 05/31/23 09:30 Urine Protein (Auto) 1 mg/dL L* 05/31/23 09:30 Glucose (UA)(Auto) 0 mg/dL 05/31/23 09:30 Urine Ketones (Auto) Positive 05/31/23 09:30 Urine Blood (Auto) 3 Luis/uL H* 05/31/23 09:30 Urine Nitrite (Auto) Positive 05/31/23 09:30 Urine Bilirubin (Auto) 0 mg/dL 05/31/23 09:30 Urine Urobilinogen (Auto) 0 mg/dL 05/31/23 09:30 Leukocyte Esterase (Auto) 3 Rosalino/uL H* 05/31/23 09:30 Assessment and Plan Assessment & Plan (1) Urinary tract infection: Code(s): N39.0 - Urinary tract infection, site not specified Plan: Bactim and pyridium called in. If sx do not improve to follow up here. Orders: Orders AMB Urinalysis Automated Today Z13.9 - Encounter for screening, unspecified Medications: New sulfamethoxazole-trimethoprim 800-160 mg (Bactrim DS) 1 tab PO BID 7 days 14 tabs 0RF phenazopyridine (Pyridium) 200 mg PO TID 3 days 9 tabs 0RF Changed From spironolactone 25 mg (1/2 x 50 mg) PO DAILY 90 tabs 1RF I10 - Essential (primary) hypertension To spironolactone 50 mg PO DAILY I10 - Essential (primary) hypertension Coding Level of Care Code Est Pt Level 3 (02339) Diagnoses Urinary tract infection N39.0
[2023-05-31 09:16] VITALS: BP 130/60; PULSE 61; O2SAT 95; BMI 20.1
== END 2023-05-31 10:12 | disposition home or self-care (01) ==
PROVIDERS: PCP Internal Medicine; Visit Provider Internal Medicine
DX: N39.0 Urinary tract infection, site not specified (principal)
CPT/HCPCS: 81003; 99213

== ENCOUNTER 2023-06-06 14:13 | Outpatient (REF) | payer MEDICARE, SELFPAY ==
--- NOTE | ~2023-06-06 | US_ITS ---
EXAMINATION: US NONINVASIVE ASSESSMENT OF THE ARTERIES OF BOTH LOWER EXTREMITIES INCLUDING PVR EXAM AND BILATERAL LOWER EXTREMITY DUPLEX. CLINICAL INFORMATION: Peripheral vascular disease; hyperlipidemia, hypertension, left popliteal atherectomy September 2021 COMPARISON: DAVE lower extremity duplex 07/10/2022 TECHNIQUE: Ankle pulse volume recordings, ankle pressure measurements and ankle brachial indices were obtained of the lower extremity arterial system bilaterally in addition to duplex Doppler techniques with wave form analysis and measurement of velocities in the common femoral, profunda femoral, superficial femoral, popliteal, tibial and peroneal arteries. The study was performed only at rest. FINDINGS: RIGHT LE. THE RIGHT ANKLE-BRACHIAL INDEX IS: 1.22 >0.97-1.25 = normal - no significant arterial disease 0.75-0.96 = mild peripheral arterial disease 0.5-0.74 = moderate peripheral arterial disease <0.50 = severe peripheral arterial disease <0.30 = critical arterial disease 2. SEGMENTAL PRESSURES (mmHg): Ankle: PT 158, DP 138 3. PVR WAVEFORMS: Ankle: Dampened amplitude 4. DIRECT DUPLEX: Common femoral artery: 87.3 cm/s, biphasic Profunda femoris artery: 61.4 cm/s, Multiphasic Superficial femoral artery (proximal): 69 cm/s, biphasic Superficial femoral artery (mid): 67 cm/s, biphasic Superficial femoral artery (distal): 71 cm/s, Multiphasic Proximal Popliteal artery: 55 cm/s, Multiphasic Mid posterior tibial artery: 48 cm/s, biphasic LEFT LE. THE LEFT ANKLE-BRACHIAL INDEX IS: 1.21 >0.97-1.25 = normal - no significant arterial disease 0.75-0.96 = mild peripheral arterial disease 0.5-0.74 = moderate peripheral arterial disease <0.50 = severe peripheral arterial disease <0.30 = critical arterial disease 2. SEGMENTAL PRESSURES: Ankle: PT 156, DP 144 3. PVR WAVEFORMS: Ankle: Dampened amplitude 4. DIRECT DUPLEX: Common femoral artery: 93 cm/s, Multiphasic Profunda femoris artery: 85 cm/s, biphasic Superficial femoral artery (proximal): 78 cm/s, biphasic Superficial femoral artery (mid): 57 cm/s, biphasic Superficial femoral artery (distal): 52 cm/s, biphasic Proximal Popliteal artery: 187 cm/s, Multiphasic. Heavy atherosclerotic calcifications causing posterior shadowing. Mid posterior tibial artery: 98.6 cm/s, biphasic US/US arterial duplex LE BI IMPRESSION: Right leg: Normal ankle brachial index. Preserved arterial flow throughout the right lower extremity without significant stenosis. Left leg: Normal ankle-brachial index. However, this is misleading. There is severe atherosclerotic plaque at the proximal popliteal artery with significant shadowing and resulting in significantly elevated peak systolic velocities (187 cm/s). This creates a greater than 3:1 velocity shift and is concerning for severe stenosis.
== END 2023-06-06 14:14 | disposition home or self-care (01) ==
LOC: HO.US 14:13
PROVIDERS: PCP Internal Medicine; Visit Provider Surgery Vascular Surgery
DX: I73.9 Peripheral vascular disease, unspecified (principal)
CPT/HCPCS: 93923; 93925

== ENCOUNTER 2023-06-07 09:31 | Outpatient (AMB) | payer MEDICARE, SELFPAY ==
[2023-06-07 09:40] VITALS: BMI 20.3
--- NOTE | 2023-06-07 09:40 | MHC.OFFVIS ---
Intake Vital Signs 06/07/23 09:40 Height 5 ft 4 in Weight 118 lb BMI 20.3 Intake Visit Reasons: Follow up Arterial US 06/06/23 (1 yr) w/ l LE pain Intake Note: 10 mo follow up (1 yr due 09/06) for arterial US 06/06/23. Pt states that Left LE was having severe pain, weakness with ambulation. Pt states she was dragging her leg. No pain today. Hx of Left angio 10/05/2021 Accompanied by: Self / Same As Patient Allergies Iodinated Contrast Media [Contrast Dye] Allergy (Severe, Verified 06/07/23 09:47) Anaphylaxis acetaminophen [Percocet] Allergy (Intermediate, Verified 06/07/23 09:47) Rash latex Allergy (Intermediate, Verified 06/07/23 09:47) Rash oxycodone [Percocet] Allergy (Intermediate, Verified 06/07/23 09:47) Agitation HPI Follow up Arterial US 06/06/23 (1 yr) w/ l LE pain HPI Details Very pleasant 83-year-old female presents for routine follow-up regarding left popliteal plasty in atherectomy done nearly a year and a half ago. She reports she is ambulating significantly better. No significant interval issues. She does report some calf cramping at random times not associated with walking which seems to resolve. It has happened only on 2 separate occasions. She now presents for follow-up with arterial surveillance testing. [facility] Medical History Pneumonia Essential hypertension Osteoarthritis Hyperlipidemia Breast cancer Peripheral vascular disease Surgical History History of left cataract surgery Breast cancer, left breast Hx of right cataract extraction History of right knee surgery History of retinal detachment History of tonsillectomy Family History Mother No problems noted. Father No problems noted. Maternal Aunt Breast cancer Son Mental health disorder Social History Housing: House Are you a primary childcare attendant to a significant other at home: No Do you presently have visiting nurse or other home services: No Alcohol intake: never Patient Tobacco Use Status: Never used Tobacco e-Cigarette/Vaping Use: Never Used Second Hand Smoke Exposure: No service: No Current occupational status: retired Cognitive needs: No Hearing needs: Yes (hearing aide) Vision needs: Yes (glasses) Review of Systems Const All systems reviewed & are unremarkable except as noted in HPI and below Reports no additional complaints ENT Reports Normal hearing present Card Denies chest pain, Denies chest pain at rest, Denies chest pain with activity and Denies pedal edema Resp Denies cough GI Denies abdominal pain Musc Denies abnormal gait, Denies muscle cramps and Denies radiating pain into limb Skin/Breast Denies skin ulcer and Denies wounds Neuro Reports Normal hearing present and Denies abnormal gait Psych Reports no additional complaints Physical Exam Vital Signs: BMI result Body Mass Index 20.3 Const General: cooperative, healthy appearing and comfortable Orientation/consciousness: oriented to person, oriented to place and oriented to time HEENT Head: Yes normal to inspection Neck Neck: Yes normal visual inspection Carotids: no bruits Chest Chest palpation & inspection: normal inspection of the chest Resp Effort & Inspection: normal respiratory effort and able to speak in complete sentences Auscultation: clear to auscultation bilaterally, no crackles, no rales, no rhonchi and no wheezes Cardio Rate: regular rate Rhythm: regular rhythm Heart sounds: S1 normal heart sound present and S2 normal heart sound present Bruits: no carotid bruits Peripheral pulses: Peripheral pulses 2+ throughout GI Inspection: Yes normal to inspection Skin Wounds: no wounds Hair: normal Neuro General: oriented to person, oriented to place and oriented to time Cranial nerves: Yes CN's II-XII intact bilaterally and Yes Normal hearing present Cognition (Neuro): normal cognition Motor exam (neuro): 5/5 motor strength present throughout Extrem Other: venous exam: No significant superficial varicosities or spider telangiectasias, minimal edema General: No clubbing, No cyanosis and No edema Psych Appearance: grossly normal Mental Status: mental status grossly normal Speech and movement: Normal speech and movement present Results Reviewed Results Reviewed: Vascular testing dated 1939 demonstrates DAVE on the right of 1.07 and on the left of 1.12 with excellent triphasic waveforms. Written report and images were reviewed. Assessment & Plan Assessment & Plan (1) Peripheral vascular disease: Comment: 10/05/2021 - left popliteal atherectomy and plasty Code(s): I73.9 - Peripheral vascular disease, unspecified Plan: In short patient has stable claudication. I did review the pathophysiology of peripheral vascular disease with the patient. In addition we did discuss routine conservative measures including a healthy diet and the importance of exercise and ambulation. We did discuss risk factor modification. The patient will continue to to follow-up with surveillance follow-up in approximately 1 year. Thank you for allowing us to participate in this patient's care. If there are any questions or concerns please do not hesitate to contact us. Orders: Orders US arterial duplex LE BI 364 Days I73.9 - Peripheral vascular disease, unspecified Coding Level of Care Code Est Pt Level 4 (41346) Diagnoses Peripheral vascular disease I73.9
== END 2023-06-07 10:02 | disposition home or self-care (01) ==
LOC: HO.HVS 09:31
PROVIDERS: PCP Internal Medicine; Visit Provider Surgery Vascular Surgery
DX: I73.9 Peripheral vascular disease, unspecified (principal)
CPT/HCPCS: 99213

== ENCOUNTER → 2023-06-07 09:31 | Outpatient (BNVA) | payer MEDICARE, SELFPAY | PROVIDERS: PCP Internal Medicine; Visit Provider Surgery Vascular Surgery | DX: I73.9 Peripheral vascular disease, unspecified (principal) | CPT/HCPCS: 99212 ==

== ENCOUNTER 2023-09-06 10:06 | Outpatient (AMB) | payer MEDICARE, SELFPAY ==
--- NOTE | 2023-09-06 10:20 | A.OFFPC_ITS ---
Vital Signs 09/06/23 10:22 Height 5 ft 4 in Weight 119 lb BMI 20.4 BP 106/76 Blood Pressure Location Lt brachial Position Sitting Pulse 68 Pulse Source Pulse Oximeter Pulse Oximetry (%) 96 Oxygen Delivery Method Room Air Intake Visit Reasons: 3 month f/u Intake Note: Patient is here to follow up on HTN, PVD. Complaint of stomach pain after eating. 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 Fuel Operator: Not Required per policy Accompanied by: Self / Same As Patient Allergies Iodinated Contrast Media [Contrast Dye] Allergy (Severe, Verified 09/06/23 10:21) Anaphylaxis acetaminophen [Percocet] Allergy (Intermediate, Verified 09/06/23 10:21) Rash latex Allergy (Intermediate, Verified 09/06/23 10:21) Rash oxycodone [Percocet] Allergy (Intermediate, Verified 09/06/23 10:21) Agitation Tobacco use date assessed: 09/06/23 Fall risk assessment: No Falls in past year Last assessed Fall Risk: 09/06/23 Dental Screening Dental Screen Date: 05/01/23 HPI 3 month f/u HPI Details 83-year-old female presents to the offic e to discuss her chronic medical conditions. She is compliant with all medications and reporting no side effects. Patient is preoccupied with her 's illness which includes bladder cancer and chemo therapy. Her sleep patterns are disturbed. Able to function and do all activities of daily living. Complains of occasional abdominal pain. Mostly after eating food. Symptoms last for a brief while in subside. No weight loss. ON LICENSE OF [facility] Medical History Pneumonia Essential hypertension Osteoarthritis Hyperlipidemia Breast cancer Peripheral vascular disease Surgical History History of left cataract surgery Breast cancer, left breast Hx of right cataract extraction History of right knee surgery History of retinal detachment History of tonsillectomy Family History Mother No problems noted. Father No problems noted. Maternal Aunt Breast cancer Son Mental health disorder Social History Housing: House Are you a primary home care provider to a significant other at home: No Do you presently have visiting nurse or other home services: No Alcohol intake: never Patient Tobacco Use Status: Never used Tobacco e-Cigarette/Vaping Use: Never Used Second Hand Smoke Exposure: No service: No Current occupational status: retired Cognitive needs: No Hearing needs: Yes (hearing aide) Vision needs: Yes (glasses) Questionnaire Thrive Questionnaire Date Thrive assessed: 05/01/23 CALVIN-7 AMB Questionnaire CALVIN-7 Date CALVIN - 7 assessed: 05/01/23 Source: Developed by Drs. Jed Chaves, Gina Arriaza, Rick Prado and colleagues, with an educational claudine from [employer]. Physical exam (Primary Care) Vital Signs: Last Vital Signs Pulse 68 09/06/23 10:22 BP 106/76 09/06/23 10:22 Pulse Ox 96 09/06/23 10:22 Oxygen Delivery Method Room Air 09/06/23 10:22 BMI result Body Mass Index 20.4 Tobacco/Smoking Status: Tobacco use Status Tobacco use date assessed 09/06/23 09/06/23 10:24 Patient Tobacco Use Status Never used Tobacco 09/06/23 10:24 e-Cigarette/Vaping Use Never Used 09/06/23 10:24 Thrive Assessment: Date of Thrive Assessment Date Thrive assessed 05/01/23 09/06/23 10:24 Const General: cooperative and healthy appearing Nutritional Appearance: well nourished Orientation/consciousness: patient oriented x3 Limitations: no limitations HENMT Head: Yes normal to inspection Eyes General: appearance normal, both eyes and all related structures Neck Neck: Yes normal visual inspection Chest Chest palpation & inspection: normal palpation of entire chest wall Resp Effort & Inspection: normal respiratory effort Neuro General: patient oriented x3 Assessment and Plan Assessment & Plan (1) Peripheral vascular disease: Comment: 10/05/2021 - left popliteal atherectomy and plasty Code(s): I73.9 - Peripheral vascular disease, unspecified (2) Breast cancer: Code(s): C50.919 - Malignant neoplasm of unspecified site of unspecified female breast Plan: Condition is stable. (3) Essential hypertension: Code(s): I10 - Essential (primary) hypertension Plan: Blood pressure is stable. Continue current medications. Orders: Orders Basic Metabolic Panel Today I73.9 - Peripheral vascular disease, unspecified Complete Blood Count no Diff Today I73.9 - Peripheral vascular disease, unspecified Lipid Panel Today I73.9 - Peripheral vascular disease, unspecified Liver Panel Today I73.9 - Peripheral vascular disease, unspecified Thyroid Stimulating Hormone Today I73.9 - Peripheral vascular disease, unspecified UA and rflx microscopic Today I73.9 - Peripheral vascular disease, unspecified Coding Level of Care Code Est Pt Level 4 (60659) Diagnoses Peripheral vascular disease I73.9 Breast cancer C50.919 Essential hypertension I10
[2023-09-06 10:22] VITALS: BP 106/76; PULSE 68; O2SAT 96; BMI 20.4
== END 2023-09-06 11:28 | disposition home or self-care (01) ==
PROVIDERS: PCP Internal Medicine; Visit Provider Internal Medicine
DX: I73.9 Peripheral vascular disease, unspecified (principal); C50.919 Malignant neoplasm of unspecified site of unspecified female breast; I10 Essential (primary) hypertension
CPT/HCPCS: 99214

== ENCOUNTER 2023-09-07 07:52 | Outpatient (REF) | payer MEDICARE, SELFPAY ==
[2023-09-07 10:40] LABS: Hematocrit 43.7 % (37.0-47.0); Mean Corpuscular Hemoglobin 30.2 pg (27.0-33.0); Mean Corpuscular Volume 94.4 fL (80.0-98.0); Mean Platelet Volume 12.3 fL (9.4-12.3); Platelet Count 152 X10*3/uL (160-400); Red Blood Count 4.63 X10*6/uL (4.20-5.50); Red Cell Distribution Width 12.9 % (11.0-16.0); White Blood Count 5.2 X10*3/uL (4.8-10.8)
[2023-09-07 11:07] LABS: Alanine Aminotransferase 28 U/L (0-31); Albumin Level 4.2 g/dL (3.5-5.0); Alkaline Phosphatase 47 U/L (39-117); Anion Gap 12 (12-20); Aspartate Amino Transferase 30 U/L (5-31); Bilirubin Direct 0.2 mg/dL (0.0-0.5); Bilirubin Total 0.5 mg/dL (0.0-1.0); Blood Urea Nitrogen 28 mg/dL (9-16); Calcium 9.8 mg/dL (8.4-10.2); Carbon Dioxide 28 mmol/L (22-29); Chloride 108 mmol/L (96-108); Cholesterol 164 mg/dL (<200); Estimated Glomerular Filt Rate > 60; Glucose Random 95 mg/dL (60-115); HDL Cholesterol 52 mg/dL (>40); LDL Cholesterol Calculated 89 mg/dL (<100); Potassium 4.6 mmol/L (3.3-5.1); Sodium 143 mmol/L (135-145); Triglycerides 115 mg/dL (<150)
[2023-09-07 11:26] LABS: Thyroid Stimulating Hormone 1.12 uIU/mL (0.32-4.0)
[2023-09-07 13:47] LABS: Appearance Urine Cloudy; Color Urine Dark Yellow; Glucose Urine UA Negative (Negative); Leukocyte Esterase Urine Moderate (2+) (Negative); Nitrite Urine Negative (Negative); UMIC TRIGGER UA YES; Urine Blood Negative (Negative); Urine Ketones Trace mg/dL (Negative); Urine Protein Trace mg/dL (Neg-Trace)
[2023-09-07 14:06] LABS: Bacteria Urine None Seen (None Seen); RBC Urine 0-2 /HPF (0-2); WBC Urine 0-5 /HPF (0-5)
== END 2023-09-07 07:53 | disposition home or self-care (01) ==
LOC: HO.HMGCLDS 07:52
PROVIDERS: PCP Internal Medicine; Visit Provider Internal Medicine
DX: I73.9 Peripheral vascular disease, unspecified (principal)
CPT/HCPCS: 36415; 80048; 80061; 80076; 81001; 84443; 85027

== ENCOUNTER 2023-11-02 09:06 | Outpatient (AMB) | payer MEDICARE, SELFPAY ==
[2023-11-02 09:09] VITALS: BP 137/76; PULSE 66; BMI 20.7
--- NOTE | 2023-11-02 09:09 | MHC.OFFVIS ---
Vital Signs 11/02/23 09:09 Height 5 ft 4 in Weight 120 lb 5.958 oz BMI 20.7 BP 137/76 Blood Pressure Location Lt brachial Position Sitting Pulse 66 Intake Visit Reasons: Diarrhea Intake Note: Coby presents to in office visit today as a new patient form diarrhea. CC: Patient states that about 6 months ago she began to experience abdominal cramps and diarrhea and she took loperamide and was ok after that. After that she was having soft stools but was having regular BMs but lately after she eats she is getting abdominal cramps and diarrhea. Last colonoscopy was about 10 years ago she believes at [facility]. She reports occasional nausea and taking Famotidine 10 mg daily for GERD. 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 She is referred by Armond Dasilva. PMX Hypertension High cholesterol History of breast cancer Peripheral vascular disease * SURGICAL HISTORY cataract surgery left Left breast mastectomy/lumpectomy Right knee surgery Retinal detachment repair Tonsillectomy * ALLERGIES IV CONTRAST Oxycodone Latex * [employer] LABS: Laboratory Tests 09/07/23 07:56 WBC 5.2 Hgb 14.0 Hct 43.7 Plt Count 152 L Estimated GFR > 60 Total Bilirubin 0.5 Direct Bilirubin 0.2 AST 30 ALT 28 Alkaline Phosphatase 47 TSH 1.12 TODAY'S VISIT She has always had good BMs and 2 scopes that were normal. About 2 mos ago, she started having cramping and her stools were liquified mixed with chunks of stool. Her gave her an Imodium AD and it helped. Now her BM's have been softer. HOwever, she has had the episodes intermittently. She also is getting pains in my stomach with eating. She has taken pepto and it is okay. The pain is always in the lower bilateral abd. IT is crampy. She will have occasional nausea. the pain after eating is about 7/10. The pain will onset shortly after completing the meal and last for about 1/2 hour. The only preceding change was COVID pneumonia - so likely this is a c/f. Given the intermittent nature and lack of consistent timing will give a trial of bentyl for sx control and watch and wait. ROV 6 weeks. She had a negative Cologuard in 2020, and has a pending order at the [facility] in December. [facility] Medical History (Updated 11/29/23 @ 16:52 by ALLISON العراقي) Pre-op evaluation Bronchitis Cellulitis of right forearm Viral syndrome Annual physical exam Pneumonia Essential hypertension Osteoarthritis Hyperlipidemia Breast cancer Peripheral vascular disease Surgical History (Updated 11/02/23 @ 09:17 by PERICO Mar) H/O colonoscopy History of left cataract surgery Breast cancer, left breast Hx of right cataract extraction History of right knee surgery History of retinal detachment History of tonsillectomy Family History Mother No problems noted. Father No problems noted. Maternal Aunt Breast cancer Son Mental health disorder Social History Housing: House Are you a primary intensive care ambulance paramedic to a significant other at home: No Do you presently have visiting nurse or other home services: No Alcohol intake: never Patient Tobacco Use Status: Never used Tobacco e-Cigarette/Vaping Use: Never Used Second Hand Smoke Exposure: No service: No Current occupational status: retired Cognitive needs: No Hearing needs: Yes (hearing aide) Vision needs: Yes (glasses) Review of Systems Const Denies fatigue, Denies fever(s), Denies night sweats, Denies poor appetite and Denies weight loss Eyes Details: glasses Reports requires corrective lenses ENT Reports Normal hearing present, Denies dental pain, Denies dysphagia, Denies hearing loss, Denies mouth pain, Denies odynophagia, Denies throat swelling, Denies tongue swelling and Reports other (Dentition adequate) Card Reports no additional complaints Resp Reports no additional complaints GI Details: Denies abdominal pain, Denies melena, Denies bloating, Denies hematochezia, Denies constipation, Reports GI cramping, Denies dysphagia, Denies excessive flatus, Denies early satiety, Denies heartburn, Reports diarrhea, Denies nausea, Denies odynophagia, Denies vomiting and Denies hematemesis Skin/Breast Denies pruritus, Denies lesions, Denies rash and Denies jaundice Neuro Reports Normal hearing present and Denies Abnormal speech present Endo Denies fatigue Aller/Immun Denies throat swelling and Denies tongue swelling Physical Exam Vital Signs: Last Vital Signs Pulse 66 11/02/23 09:09 BP 137/76 11/02/23 09:09 BMI result Body Mass Index 20.7 Const General: cooperative, no acute distress, well developed and well groomed Nutritional Appearance: average body habitus and well nourished Orientation/consciousness: oriented to person, oriented to place and oriented to time Limitations: No language barrier HEENT Head: Yes normocephalic and Yes atraumatic Eyes General: appearance normal, both eyes and all related structures Pupils: Equal, round and reactive pupils present Neck Neck: Yes normal visual inspection and Yes no lymphadenopathy Thyroid: Thyroid normal Neck images: 1. asyymetrical bulge Resp Effort & Inspection: normal respiratory effort and able to speak in complete sentences Auscultation: clear to auscultation bilaterally Cardio Rate: regular rate Rhythm: regular rhythm Heart sounds: Normal, physiologic split S2 sound present Peripheral pulses: radial pulses present and posterior tibial pulses present GI Inspection: No distended and No Abdominal panniculus present Palpation (GI): Soft to palpation, nontender, no guarding, not rigid and No hepatosplenomegaly present Percussion: Yes normal to percussion Auscultation: normal bowel sounds Rectal Exam - Female: deferred Skin General skin exam: no rashes or lesions noted, turgor normal, skin not dry, no jaundice, No spider nevi and no striae Rashes: no rashes Nails: normal Neuro General: oriented to person, oriented to place and oriented to time Cranial nerves: Yes Equal, round and reactive pupils present and Yes Normal hearing present Speech: No Abnormal speech present Extrem General: Yes normal to inspection, No clubbing, No cyanosis and No edema Psych Appearance: grossly normal and well kempt Mental Status: mental status grossly normal Speech and movement: Normal speech and movement present Affect: normal affect Attitude: cooperative Thought process: Normal thought process present and not confabulating Thought content: Normal thought content present Insight: Fair insight present (Psych) Judgement: Fair judgement present (Psych) Assessment & Plan Assessment & Plan (1) Abdominal cramping: Code(s): R10.9 - Unspecified abdominal pain Category: Medical (2) Diarrhea: Code(s): R19.7 - Diarrhea, unspecified Category: Medical Plan She has always had good BMs and 2 scopes that were normal. About 2 mos ago, she started having cramping and her stools were liquified mixed with chunks of stool. Her gave her an Imodium AD and it helped. Now her BM's have been softer. HOwever, she has had the episodes intermittently. She also is getting pains in my stomach with eating. She has taken pepto and it is okay. The pain is always in the lower bilateral abd. IT is crampy. She will have occasional nausea. the pain after eating is about 7/10. The pain will onset shortly after completing the meal and last for about 1/2 hour. The only preceding change was COVID pneumonia - so likely this is a c/f. Given the intermittent nature and lack of consistent timing will give a trial of bentyl for sx control and watch and wait. ROV 6 weeks. She had a negative Cologuard in 2020, and has a pending order at the [facility] in December. Orders: Orders US abdomen limited 11/02/23 R22.1 - Localized swelling, mass and lump, neck Medications: New dicyclomine 1-2 tablet prn cramping orally 4 times a day PRN; 90 caps 0RF abdominal pain R10.9 - Unspecified abdominal pain Coding Level of Care Code New Pt Level 3 (07034) Diagnoses Abdominal cramping R10.9 Diarrhea R19.7
== END 2023-11-02 10:17 | disposition home or self-care (01) ==
PROVIDERS: PCP Internal Medicine; Visit Provider Nurse Practitioner
DX: R10.9 Unspecified abdominal pain (principal); R19.7 Diarrhea, unspecified
CPT/HCPCS: 99203

== ENCOUNTER → 2023-11-02 09:06 | Outpatient (BNVA) | payer MEDICARE, SELFPAY | PROVIDERS: PCP Internal Medicine; Visit Provider Nurse Practitioner | DX: R19.7 Diarrhea, unspecified (principal); R10.9 Unspecified abdominal pain; K21.9 Gastro-esophageal reflux disease without esophagitis; R22.1 Localized swelling, mass and lump, neck; Z79.899 Other long term (current) drug therapy | CPT/HCPCS: 99202 ==

== ENCOUNTER 2023-12-11 14:39 | Outpatient (REF) | payer SELFPAY ==
--- NOTE | 2023-12-11 16:17 | MHC.AU.HA3 ---
Hearing Instrument Follow-Up- Binaural Date of Visit: 12/11/23 Left Ear: Make, Model, Color, Serial Number: [id number] 3 Series [id number] [facility] SN: [id number] Color: Transparent Fish Rod Maker Repair Warranty: 12/06/2015 Fish Rod Maker Loss and Damage Warranty: 12/06/2015 Battery Size: 312 Type of Wax Guard: HearClear Dispensed By: [facility] Date of Fittin11/13/2013 Follow-Up Summary: Routine clean and check. No specific issues/concerns. Vent is cracked, microphone cover missing. Cleaned hearing aid. Replaced wax guard and chacha cover. Ran through dehumidifier. Listening check demonstrated hearing aid amplifying clearly. Has upcoming appointment with Dr. Morejon for wax removal. Significant wax, right ear; clear, left ear. Coby inquired about a new hearing aid. Briefly discussed process, starting with order from PCP for updated hearing test. Provided sanchez list. Recommendations: Hearing instrument follow-up or maintenance as needed. Please contact our clinic with any questions or concerns. Diagnosis Code(s): Primary Diagnosis: H90.6 Mixed Hearing Loss, Bilateral Signature: Provider: Lucero Perez, [facility]
== END 2023-12-11 14:40 | disposition home or self-care (01) ==
LOC: HO.HAP 14:39
PROVIDERS: Visit Provider Internal Medicine
DX: Z46.1 Encounter for fitting and adjustment of hearing aid (principal); H90.6 Mixed conductive and sensorineural hearing loss, bilateral
CPT/HCPCS: 92593; V5267

== ENCOUNTER 2023-12-31 09:56 | Outpatient (AMB) | payer MEDICARE, SELFPAY ==
--- NOTE | 2023-12-31 09:58 | MHC.PC.OV ---
Vital Signs 12/31/23 09:59 Height 5 ft 4 in Weight 118 lb BMI 20.3 BP 140/70 H Blood Pressure Location Lt brachial Position Sitting Pulse 65 Pulse Source Pulse Oximeter Pulse Oximetry (%) 98 Oxygen Delivery Method Room Air Intake Visit Reasons: Rsched from 12/12 - 3M follow up Intake Note: Patient is here to follow up on Breast cancer, HTN, PVD. 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: Not Required per policy Accompanied by: Self / Same As Patient Allergies Iodinated Contrast Media [Contrast Dye] Allergy (Severe, Verified 12/31/23 11:11) Anaphylaxis oxycodone [Percocet] Allergy (Severe, Verified 12/31/23 11:11) Anaphylaxis acetaminophen [Percocet] Allergy (Intermediate, Verified 12/31/23 11:11) Rash latex Allergy (Intermediate, Verified 12/31/23 11:11) Rash Medication List - Last Reconciled 12/31/23 by Armond Dasilva MD albuterol sulfate 90 mcg/actuation 2 puffs inhalation Q4-6H PRN ascorbate calcium (vitamin C) 600 mg PO DAILY aspirin 81 mg PO DAILY biotin 5 mg PO DAILY cholecalciferol (vitamin D3) 25 mcg PO DAILY diclofenac sodium 50 mg PO BID 90 days dicyclomine 10 mg PO BID famotidine 10 mg PO DAILY meclizine 25 mg PO DAILY PRN multivitamin 1 tab PO DAILY ondansetron 4 mg PO Q6-8H PRN simvastatin 20 mg PO BEDTIME spironolactone 50 mg PO DAILY zinc sulfate (Orazinc) 50 mg PO DAILY Tobacco use date assessed: 12/31/23 Fall risk assessment: No Falls in past year Last assessed Fall Risk: 12/31/23 Dental Screening Dental Screen Date: 05/01/23 HPI Rsched from 12/12 - 3M follow up HPI Details 83-year-old female presents to the office to discuss her chronic medical conditions. Patient is at baseline state of health and compliant with medications. On her own accord, she has reduced the dosage of spironolactone to half. Taking the other medications as prescribed. Able to drive and do activities of daily living. Reports no symptoms of urinary incontinence. [facility]LY [facility], [facility] Medical History Pre-op evaluation Bronchitis Cellulitis of right forearm Viral syndrome Annual physical exam Pneumonia Essential hypertension Osteoarthritis Hyperlipidemia Breast cancer Peripheral vascular disease Surgical History H/O colonoscopy History of left cataract surgery Breast cancer, left breast Hx of right cataract extraction History of right knee surgery History of retinal detachment History of tonsillectomy Family History Mother No problems noted. Father No problems noted. Maternal Aunt Breast cancer Son Mental health disorder Social History Housing: House Are you a primary care technician to a significant other at home: No Do you presently have visiting nurse or other home services: No Alcohol intake: never Patient Tobacco Use Status: Never used Tobacco e-Cigarette/Vaping Use: Never Used Second Hand Smoke Exposure: No service: No Current occupational status: retired Cognitive needs: No Hearing needs: Yes (hearing aide) Vision needs: Yes (glasses) Questionnaire Thrive Questionnaire Date Thrive assessed: 05/01/23 Are you currently unemployed and looking for a job?: No CALVIN-7 AMB Questionnaire CALVIN-7 Date CALVIN - 7 assessed: 05/01/23 Source: Developed by Drs. Jed Chaves, Gina Arriaza, Rick Prado and colleagues, with an educational claudine from [employer]. Physical exam (Primary Care) Vital Signs: Last Vital Signs Pulse 65 12/31/23 09:59 BP 140/70 H 12/31/23 09:59 Pulse Ox 98 12/31/23 09:59 Oxygen Delivery Method Room Air 12/31/23 09:59 Care Plan Goal for BP management: Blood pressure is in range. BMI result Body Mass Index 20.3 Tobacco/Smoking Status: Tobacco use Status Tobacco use date assessed 12/31/23 12/31/23 10:04 Patient Tobacco Use Status Never used Tobacco 12/31/23 10:04 e-Cigarette/Vaping Use Never Used 12/31/23 10:04 Thrive Assessment: Date of Thrive Assessment Date Thrive assessed 05/01/23 12/31/23 10:04 Const General: cooperative and healthy appearing Nutritional Appearance: well nourished Orientation/consciousness: patient oriented x3 Limitations: no limitations HENMT Head: Yes normal to inspection Eyes General: appearance normal, both eyes and all related structures Neck Neck: Yes normal visual inspection Chest Chest palpation & inspection: normal palpation of entire chest wall Resp Effort & Inspection: normal respiratory effort Neuro General: patient oriented x3 Assessment and Plan Assessment & Plan (1) Hyperlipidemia: Code(s): E78.5 - Hyperlipidemia, unspecified Plan: Fasting cholesterol has been ordered. Will call with the results. (2) Essential hypertension: Code(s): I10 - Essential (primary) hypertension Plan: Blood pressure is in range. Continue antihypertensives at the same dosage. Coding Level of Care Code Est Pt Level 4 (98082) Complex EM visit Add On G2211 Diagnoses Hyperlipidemia E78.5 Essential hypertension I10
[2023-12-31 09:59] VITALS: BP 140/70; PULSE 65; O2SAT 98; BMI 20.3
== END 2023-12-31 11:07 | disposition home or self-care (01) ==
PROVIDERS: PCP Internal Medicine; Visit Provider Internal Medicine
DX: E78.5 Hyperlipidemia, unspecified (principal); I10 Essential (primary) hypertension

== ENCOUNTER → 2023-12-31 09:56 | Outpatient (BNVA) | payer MEDICARE, SELFPAY | PROVIDERS: PCP Internal Medicine; Visit Provider Internal Medicine | DX: E78.5 Hyperlipidemia, unspecified (principal); I10 Essential (primary) hypertension | CPT/HCPCS: 99212 ==

== ENCOUNTER 2024-01-16 14:00 | Outpatient (AMB) | payer MEDICARE, SELFPAY ==
--- NOTE | 2024-01-16 14:02 | MHC.OFFVIS ---
Vital Signs 01/16/24 14:03 01/16/24 14:10 Height 5 ft 4 in Weight 120 lb 13.013 oz BMI 20.7 BP 93/49 L 94/52 L Blood Pressure Location Lt brachial Rt brachial Position Sitting Sitting Pulse 72 Intake Visit Reasons: Follow up 6 weeks Intake Note: Coby presents to in office visit today in follow up of diarrhea. CC: The patient reports doing well and denies any new GI concern today. Claim Administrator Required: No Accompanied by: Self / Same As Patient Allergies Iodinated Contrast Media [Contrast Dye] Allergy (Severe, Verified 12/31/23 11:11) Anaphylaxis oxycodone [Percocet] Allergy (Severe, Verified 12/31/23 11:11) Anaphylaxis acetaminophen [Percocet] Allergy (Intermediate, Verified 12/31/23 11:11) Rash latex Allergy (Intermediate, Verified 12/31/23 11:11) Rash HPI HPI Follow up 6 weeks: Details: ssessment & Plan (1) Abdominal cramping: Code(s): R10.9 - Unspecified abdominal pain Category: Medical (2) Diarrhea: Code(s): R19.7 - Diarrhea, unspecified Category: Medical Plan She has always had good BMs and 2 scopes that were normal. About 2 mos ago, she started having cramping and her stools were liquified mixed with chunks of stool. Her gave her an Imodium AD and it helped. Now her BM's have been softer. HOwever, she has had the episodes intermittently. She also is getting pains in my stomach with eating. She has taken pepto and it is okay. The pain is always in the lower bilateral abd. IT is crampy. She will have occasional nausea. the pain after eating is about 7/10. The pain will onset shortly after completing the meal and last for about 1/2 hour. The only preceding change was COVID pneumonia - so likely this is a c/f. Given the intermittent nature and lack of consistent timing will give a trial of bentyl for sx control and watch and wait. ROV 6 weeks. She had a negative Cologuard in 2020, and has a pending order at the [facility] in December. Orders: Orders US abdomen limited 11/02/23 R22.1 - Localized swelling, mass and lump, neck Medications: New dicyclomine 1-2 tablet prn cramping orally 4 times a day PRN; 90 caps 0RF abdominal pain R10.9 - Unspecified abdominal pain ULTRASOUND OF THE ABDOMEN Ultrasound unable to reach patient to schedule this exam TODAY'S VISIT Her Cologuard test was negative. SHe had her cell phone as her preferred, and she actually only uses her land line - this is the reason for her not having the US for thei neck lump. We call and get it scheduled for her while she is here. Her stomach has not bothered her since I saw her - she took the dicyclomine twice but has not needed it since. ROV after US next week. [facility] Medical History (Updated 01/16/24 @ 14:42 by ALLISON العراقي) Abdominal cramping Diarrhea Pre-op evaluation Bronchitis Cellulitis of right forearm Viral syndrome Annual physical exam Pneumonia Essential hypertension Osteoarthritis Hyperlipidemia Breast cancer Peripheral vascular disease Surgical History H/O colonoscopy History of left cataract surgery Breast cancer, left breast Hx of right cataract extraction History of right knee surgery History of retinal detachment History of tonsillectomy Family History Mother No problems noted. Father No problems noted. Maternal Aunt Breast cancer Son Mental health disorder Social History Housing: House Are you a primary critical care clinical nurse specialist to a significant other at home: No Do you presently have visiting nurse or other home services: No Alcohol intake: never Patient Tobacco Use Status: Never used Tobacco e-Cigarette/Vaping Use: Never Used Second Hand Smoke Exposure: No service: No Current occupational status: retired Cognitive needs: No Hearing needs: Yes (hearing aide) Vision needs: Yes (glasses) Review of Systems Const Denies fatigue, Denies fever(s), Denies night sweats, Denies poor appetite and Denies weight loss Eyes Details: glasses Reports requires corrective lenses ENT Reports Normal hearing present, Denies dental pain, Denies dysphagia, Denies hearing loss, Denies mouth pain, Reports neck mass, Denies odynophagia, Denies throat swelling, Denies tongue swelling and Reports other (Dentition adequate) Card Reports no additional complaints Resp Reports no additional complaints GI Details: Denies abdominal pain, Denies melena, Denies bloating, Denies hematochezia, Denies constipation, Denies GI cramping, Denies dysphagia, Denies excessive flatus, Denies early satiety, Denies heartburn, Denies diarrhea, Denies nausea, Denies odynophagia, Denies vomiting and Denies hematemesis Skin/Breast Denies pruritus, Denies lesions, Denies rash and Denies jaundice Neuro Reports Normal hearing present and Denies Abnormal speech present Endo Denies fatigue Aller/Immun Denies throat swelling and Denies tongue swelling Physical Exam Vital Signs: Last Vital Signs Pulse 72 01/16/24 14:10 BP 94/52 L 01/16/24 14:10 BMI result Body Mass Index 20.7 Const General: cooperative, no acute distress, well developed and well groomed Nutritional Appearance: average body habitus and well nourished Orientation/consciousness: oriented to person, oriented to place and oriented to time Limitations: No language barrier HEENT Head: Yes normocephalic and Yes atraumatic Eyes General: appearance normal, both eyes and all related structures Pupils: Equal, round and reactive pupils present Neck Other: See me asymmetry/mass left trapezius Thyroid: Thyroid normal Resp Effort & Inspection: normal respiratory effort and able to speak in complete sentences Auscultation: clear to auscultation bilaterally Cardio Rate: regular rate Rhythm: regular rhythm Heart sounds: Normal, physiologic split S2 sound present Peripheral pulses: radial pulses present and posterior tibial pulses present GI Inspection: No distended and No Abdominal panniculus present Palpation (GI): Soft to palpation, nontender, no guarding, not rigid and No hepatosplenomegaly present Percussion: Yes normal to percussion Auscultation: normal bowel sounds Rectal Exam - Female: deferred Skin General skin exam: no rashes or lesions noted, turgor normal, skin not dry, no jaundice, No spider nevi and no striae Rashes: no rashes Nails: normal Neuro General: oriented to person, oriented to place and oriented to time Cranial nerves: Yes Equal, round and reactive pupils present and Yes Normal hearing present Speech: No Abnormal speech present Extrem General: Yes normal to inspection, No clubbing, No cyanosis and No edema Psych Appearance: grossly normal and well kempt Mental Status: mental status grossly normal Speech and movement: Normal speech and movement present Affect: normal affect Attitude: cooperative Thought process: Normal thought process present and not confabulating Thought content: Normal thought content present Insight: Fair insight present (Psych) Judgement: Fair judgement present (Psych) Assessment & Plan Assessment & Plan (1) Encounter for colorectal cancer screening using Cologuard test: Comment: 12/2023= negative study repeat in 3 years Code(s): Z12.11 - Encounter for screening for malignant neoplasm of colon; Z12.12 - Encounter for screening for malignant neoplasm of rectum Category: Medical (2) Abdominal cramping: Code(s): R10.9 - Unspecified abdominal pain Category: Medical (3) Diarrhea: Comment: Resolved Code(s): R19.7 - Diarrhea, unspecified Category: Medical (4) Mass in neck: Code(s): R22.1 - Localized swelling, mass and lump, neck Category: Medical (5) Low blood pressure reading: Code(s): R03.1 - Nonspecific low blood-pressure reading Category: Medical Plan Her Cologuard test was negative. She had her cell phone as her preferred, and she actually only uses her land line - this is the reason for her not having the US for thei neck lump. We call and get it scheduled for her while she is here. Her stomach has not bothered her since I saw her - she took the dicyclomine twice but has not needed it since. We discussed fact that her blood pressure was a little low today, and she tells me that she has been feeling dehydrated in terms of her skin and that her urine is bright yellow. She does not like to drink water and has been drinking largely home bruit green tea because someone told her it was good for hydration. I educated her that although it is lower in caffeine then black tea and coffee it is still caffeine and therefore is not really the best hydrating fluid. We discussed possible alternatives including G0, crystal light and seltzer water. She is not symptomatic for hypotension. ROV after US next week. Medications: New famotidine 10 mg PO DAILY 30 tabs 6RF Coding Level of Care Code Est Pt Level 3 (53618) Diagnoses Encounter for colorectal cancer screening using Cologuard test Z12.11; Z12.12 Abdominal cramping R10.9 Diarrhea R19.7 Mass in neck R22.1 Low blood pressure reading R03.1
[2024-01-16 14:03] VITALS: BP 93/49; BMI 20.7
[2024-01-16 14:10] VITALS: BP 94/52; PULSE 72
== END 2024-01-16 15:58 | disposition home or self-care (01) ==
PROVIDERS: PCP Internal Medicine; Visit Provider Nurse Practitioner
DX: R10.9 Unspecified abdominal pain (principal); R19.7 Diarrhea, unspecified; R22.1 Localized swelling, mass and lump, neck; R03.1 Nonspecific low blood-pressure reading
CPT/HCPCS: 99213

== ENCOUNTER → 2024-01-16 14:00 | Outpatient (BNVA) | payer MEDICARE, SELFPAY | PROVIDERS: PCP Internal Medicine; Visit Provider Nurse Practitioner | DX: Z12.11 Encounter for screening for malignant neoplasm of colon (principal); Z12.12 Encounter for screening for malignant neoplasm of rectum; R10.9 Unspecified abdominal pain; R19.7 Diarrhea, unspecified; R22.1 Localized swelling, mass and lump, neck; R03.1 Nonspecific low blood-pressure reading | CPT/HCPCS: 99212 ==

== ENCOUNTER 2024-01-23 08:12 | Outpatient (REF) | payer MEDICARE, SELFPAY | END 2024-01-23 08:13 | disposition home or self-care (01) | LOC: HO.US 08:12 | PROVIDERS: PCP Internal Medicine; Visit Provider Nurse Practitioner | DX: R22.1 Localized swelling, mass and lump, neck (principal) | CPT/HCPCS: 76536 ==

== ENCOUNTER 2024-02-20 09:19 | Outpatient (AMB) | payer MEDICARE, SELFPAY ==
--- NOTE | 2024-02-20 09:22 | A.OFFPC_ITS ---
Vital Signs 02/20/24 09:23 Height 5 ft 4 in Weight 119 lb BMI 20.4 BP 110/60 Blood Pressure Location Lt brachial Position Sitting Pulse 68 Pulse Source Pulse Oximeter Pulse Oximetry (%) 97 Oxygen Delivery Method Room Air Intake Visit Reasons: PE Intake Note: Patient is here today for a physical. 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: No Hospice Clinical Marketer: Not Required per policy Accompanied by: Self / Same As Patient Allergies Iodinated Contrast Media [Contrast Dye] Allergy (Severe, Verified 02/20/24 09:23) Anaphylaxis oxycodone [Percocet] Allergy (Severe, Verified 02/20/24 09:23) Anaphylaxis acetaminophen [Percocet] Allergy (Intermediate, Verified 02/20/24 09:23) Rash latex Allergy (Intermediate, Verified 02/20/24 09:23) Rash Tobacco use date assessed: 02/20/24 Fall risk assessment: No Falls in past year Last assessed Fall Risk: 02/20/24 Dental Screening Dental Screen Date: 05/01/23 HPI PE HPI Details 84-year-old female presents to the [facility] e requesting an annual physical. [facility] Medical History Abdominal cramping Diarrhea Pre-op evaluation Bronchitis Cellulitis of right forearm Viral syndrome Annual physical exam Pneumonia Essential hypertension Osteoarthritis Hyperlipidemia Breast cancer Peripheral vascular disease Surgical History H/O colonoscopy History of left cataract surgery Breast cancer, left breast Hx of right cataract extraction History of right knee surgery History of retinal detachment History of tonsillectomy Family History Mother No problems noted. Father No problems noted. Maternal Aunt Breast cancer Son Mental health disorder Social History Housing: House Are you a primary child care to a significant other at home: No Do you presently have visiting nurse or other home services: No Alcohol intake: never Patient Tobacco Use Status: Never used Tobacco e-Cigarette/Vaping Use: Never Used Second Hand Smoke Exposure: No service: No Current occupational status: retired Cognitive needs: No Hearing needs: Yes (hearing aide) Vision needs: Yes (glasses) Questionnaire PHQ-9 Over the last 2 weeks, how often have you been bothered by any of the following problems? 1. Little interest or pleasure in doing things: not at all 2. Feeling down, depressed, or hopeless: not at all 3. Trouble falling or staying asleep, or sleeping too much: not at all 4. Feeling tired or having little energy: not at all 5. Poor appetite or overeating: not at all 6. Feeling bad about yourself - or that you are a failure or have let yourself or your family down: not at all 7. Trouble concentrating on things, such as reading the newspaper or watching television: not at all 8. Moving or speaking so slowly that other people could have noticed. Or the opposite - being so fidgety or restless that you have been moving around a lot more than usual: not at all 9. Thoughts that you would be better off or of hurting yourself in some way: not at all Total score: 0 Depression Screening Interpretation: Negative Depression Screening Done: Yes Source: Developed by Drs. Jed Chaves, Gina Arriaaz, Rick Prado and colleagues, with an educational claudine from [employer]. Thrive Questionnaire Date Thrive assessed: 02/20/24 I am a: Patient What is your living situation today?: I have a steady place to live Within the past 12 months, did the food you bought not last and you didn't have the money to get more?: Never true Within the past 12 months, did you worry whether your food would run out before you got money to buy more?: Never true Do you have trouble paying for medicines?: No Do you have trouble getting transportation to medical appointments?: No Do you have trouble paying your heating and electricity bill?: No Do you have trouble taking care of your child, family member or friend?: No Do you have trouble with day-to-day activities such as bathing, preparing meals, shopping, managing finances, etc.?: No Are you currently unemployed and looking for a job?: No Are you interested in more education?: No Please select the resources that you would like help with: None Currently or been in a relationship where the following occur: No concerns r eported THRIVE Score: 0 AUDIT C Alcohol Use Questionnaire (AUDIT-C) 1. How often do you have a drink containing alcohol?: Never 3. How often do you have six or more drinks on one occasion?: Never Total Score: 0 CALVIN-7 AMB Questionnaire CALVIN-7 Date CALVIN - 7 assessed: 02/20/24 Feeling nervous, anxious, or on edge: 0 = Not at all Not being able to stop or control worryin = Not at all Worrying too much about different things: 0 = Not at all Trouble relaxin = Not at all Being so restless that it is hard to sit still: 0 = Not at all Becoming easily annoyed or irritable: 0 = Not at all Feeling afraid as if something awful might happen: 0 = Not at all Total CALVIN-7 score (0-4 normal; 5-9 mild; 10-14 moderate; 15-21 severe): 0 Source: Developed by Drs. Jed Chaves, Gina Arriaza, Rick Prado and colleagues, with an educational claudine from [employer]. Physical exam (Primary Care) Vital Signs: Last Vital Signs Pulse 68 02/20/24 09:23 BP 110/60 02/20/24 09:23 Pulse Ox 97 02/20/24 09:23 Oxygen Delivery Method Room Air 02/20/24 09:23 BMI result Body Mass Index 20.4 Tobacco/Smoking Status: Tobacco use Status Tobacco use date assessed 02/20/24 02/20/24 09:27 Patient Tobacco Use Status Never used Tobacco 02/20/24 09:27 e-Cigarette/Vaping Use Never Used 02/20/24 09:27 PHQ-9: PHQ-9 Score PHQ-9: Total score 0 02/20/24 09:27 Depression Screening Interpretation: Negative Thrive Assessment: Date of Thrive Assessment Date Thrive assessed 02/20/24 02/20/24 09:27 Currently or been in a relationship where the following occur: No concerns reported Const General: cooperative and healthy appearing Nutritional Appearance: well nourished Orientation/consciousness: patient oriented x3 Limitations: no limitations HENMT Head: Yes normal to inspection Eyes General: appearance normal, both eyes and all related structures Neck Neck: Yes normal visual inspection Chest Chest palpation & inspection: normal palpation of entire chest wall Resp Effort & Inspection: normal respiratory effort Neuro General: patient oriented x3 Office Procedures EKG Details: Normal sinus rhythm. [id number], Complete Coding Level of Care Code Est Pt Prev Care >65y(96782) Diagnoses Essential hypertension I10 Hyperlipidemia E78.5 Annual physical exam Z00.00 CPT Codes EKG - CPT: 67459-[id number], Complete ([id number]) Assessment & Plan Assessment & Plan (1) Essential hypertension: Code(s): I10 - Essential (primary) hypertension Category: Medical Plan: Blood pressure is in range. Continue current medications. (2) Hyperlipidemia: Code(s): E78.5 - Hyperlipidemia, unspecified Category: Medical Plan: Blood work has been ordered. Will call with the results. (3) Annual physical exam: Code(s): Z00.00 - Encounter for general adult medical examination without abnormal findings Plan: Patient has received her annual flu and COVID vaccination. Plan As above Orders: Orders AMB EKG-In Office Today I10 - Essential (primary) hypertension
[2024-02-20 09:23] VITALS: BP 110/60; PULSE 68; O2SAT 97; BMI 20.4
== END 2024-02-20 10:19 | disposition home or self-care (01) ==
LOC: HO.HMCH 09:20
PROVIDERS: PCP Internal Medicine; Visit Provider Internal Medicine
DX: I10 Essential (primary) hypertension (principal); E78.5 Hyperlipidemia, unspecified; Z00.00 Encounter for general adult medical examination without abnormal findings

== ENCOUNTER → 2024-02-20 09:19 | Outpatient (BNVA) | payer MEDICARE, SELFPAY | PROVIDERS: PCP Internal Medicine; Visit Provider Internal Medicine | DX: Z00.00 Encounter for general adult medical examination without abnormal findings (principal); I10 Essential (primary) hypertension; E78.5 Hyperlipidemia, unspecified | CPT/HCPCS: 93005; 96127; 99397 ==

== ENCOUNTER 2024-02-22 13:44 | Outpatient (AMB) | payer MEDICARE, SELFPAY ==
--- NOTE | 2024-02-22 13:56 | A.OFFVIS_ITS ---
Vital Signs 02/22/24 14:05 Height 5 ft 4 in Weight 119 lb 0.794 oz BMI 20.4 BP 130/67 Blood Pressure Location Lt brachial Position Sitting Pulse 67 Intake Visit Reasons: 4 Wks f/u Intake Note: Patient in office today in follow up of epigastric pain. CC: Patient c/o epigastric pain, she states that she woke up today at 3 AM . She states that she is having a lot of stress at home and is breaking out in hives and they were very itchy. 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 Required: No Accompanied by: Self / Same As Patient Allergies Iodinated Contrast Media [Contrast Dye] Allergy (Severe, Verified 05/07/24 09:54) Anaphylaxis oxycodone [Percocet] Allergy (Severe, Verified 05/07/24 09:54) Anaphylaxis acetaminophen [Percocet] Allergy (Intermediate, Verified 05/07/24 09:54) Rash latex Allergy (Intermediate, Verified 05/07/24 09:54) Rash HPI HPI 4 Wks f/u: Details: Assessment & Plan (1) Encounter for colorectal cancer screening using Cologuard test: Comment: 12/2023= negative study repeat in 3 years Code(s): Z12.11 - Encounter for screening for malignant neoplasm of colon; Z12.12 - Encounter for screening for malignant neoplasm of rectum Category: Medical (2) Abdominal cramping: Code(s): R10.9 - Unspecified abdominal pain Category: Medical (3) Diarrhea: Comment: Resolved Code(s): R19.7 - Diarrhea, unspecified Category: Medical (4) Mass in neck: Code(s): R22.1 - Localized swelling, mass and lump, neck Category: Medical (5) Low blood pressure reading: Code(s): R03.1 - Nonspecific low blood-pressure reading Category: Medical Plan Her Cologuard test was negative. She had her cell phone as her preferred, and she actually only uses her land line - this is the reason for her not having the US for thei neck lump. We call and get it scheduled for her while she is here. Her stomach has not bothered her since I saw her - she took the dicyclomine twice but has not needed it since. We discussed fact that her blood pressure was a little low today, and she tells me that she has been feeling dehydrated in terms of her skin and that her urine is bright yellow. She does not like to drink water and has been drinking largely home bruit green tea because someone told her it was good for hydration. I educated her that although it is lower in caffeine then black tea and coffee it is still caffeine and therefore is not really the best hydrating fluid. We discussed possible alternatives including G0, crystal light and seltzer water. She is not symptomatic for hypotension. ROV after US next week. Medications: New famotidine 10 mg PO DAILY 30 tabs 6RF CORRESPONDENCE On 01/25/24 @ 16:59 Jennifer Clements Wrote To Татьяна Mckeon Ok you might have to put the order in again for some reason Centralized Scheduling is saying that it is cancelled in exp[place]. They also stated that she had the US soft tissue done on 01/22 so they want to know if you still want this? On 01/25/24 @ 15:45 Татьяна Mckeon Wrote To Jennifer Clements I do not know who cancel the order I am still looking for it. On 01/25/24 @ 15:38 Jennifer Clements Wrote To Татьяна Mckeon CS wants to know if this patient is supposed to be scheduled for US abd complete because the order was cancelled in expanse? On 01/14/24 @ 10:25 Phoebe Hollis Wrote To Phoebe Hollis US not done, per order child protection specialist messages, they were unable to schedule patient after calling her x3 times requesting call back to schedule. Also, Yasmine left message requesting a call from patient to schedule US. Phoebe Hollis completed item. US HEAD AND NECK not yet read TODAY'S VISIT She has had the epi pain only once waking her up at noc. She is taking the famotidine 10mg qam She is breaking out in hives, her will be having L4-L5 decompression surgery and severe back pain. Her dtr also breaks out in hive. Her Gi sx also seem to be driven by stress. She has bentyl if she needs it. RX hydrocortisone cream and I recommend moy as a non drowsy. ROV after holidays. [facility] Medical History Abdominal cramping Diarrhea Pre-op evaluation Bronchitis Cellulitis of right forearm Viral syndrome Annual physical exam Pneumonia Essential hypertension Osteoarthritis Hyperlipidemia Breast cancer Peripheral vascular disease Surgical History H/O colonoscopy History of left cataract surgery Breast cancer, left breast Hx of right cataract extraction History of right knee surgery History of retinal detachment History of tonsillectomy Family History Mother No problems noted. Father No problems noted. Maternal Aunt Breast cancer Son Mental health disorder Social History Housing: House Are you a primary respiratory care assistant to a significant other at home: No Do you presently have visiting nurse or other home services: No Alcohol intake: never Patient Tobacco Use Status: Never used Tobacco e-Cigarette/Vaping Use: Never Used Second Hand Smoke Exposure: No service: No Current occupational status: retired Cognitive needs: No Hearing needs: Yes (hearing aide) Vision needs: Yes (glasses) Review of Systems Const Denies fatigue, Denies fever(s), Denies night sweats, Denies poor appetite and Denies weight loss Eyes Details: glasses Reports requires corrective lenses ENT Reports Normal hearing present, Denies dental pain, Denies dysphagia, Denies hearing loss, Denies mouth pain, Denies odynophagia, Denies throat swelling, Denies tongue swelling and Reports other (Dentition adequate) Card Reports no additional complaints Resp Reports no additional complaints GI Details: Reports abdominal pain, Denies melena, Denies bloating, Denies hematochezia, Denies constipation, Reports GI cramping, Denies dysphagia, Denies excessive flatus, Denies early satiety, Reports heartburn, Denies diarrhea, Denies nausea, Denies odynophagia, Denies vomiting and Denies hematemesis Musc Reports arthralgias and Reports joint swelling Skin/Breast Reports pruritus, Denies lesions, Reports rash and Denies jaundice Neuro Reports Normal hearing present and Denies Abnormal speech present Psych Reports anxiety Endo Denies fatigue Aller/Immun Denies throat swelling and Denies tongue swelling Physical Exam Vital Signs: Last Vital Signs Pulse 67 02/22/24 14:05 BP 130/67 02/22/24 14:05 BMI result Body Mass Index 20.4 Const General: cooperative, no acute distress, well developed and well groomed Nutritional Appearance: average body habitus and well nourished Orientation/consciousness: oriented to person, oriented to place and oriented to time Limitations: No language barrier HEENT Head: Yes normocephalic and Yes atraumatic Eyes General: appearance normal, both eyes and all related structures Pupils: Equal, round and reactive pupils present Neck Neck: Yes normal visual inspection and Yes no lymphadenopathy Thyroid: Thyroid normal Resp Effort & Inspection: normal respiratory effort and able to speak in complete sentences Auscultation: clear to auscultation bilaterally Cardio Rate: regular rate Rhythm: regular rhythm Heart sounds: Normal, physiologic split S2 sound present Peripheral pulses: radial pulses present and posterior tibial pulses present GI Inspection: No distended and No Abdominal panniculus present Palpation (GI): Soft to palpation, nontender, no guarding, not rigid and No hepatosplenomegaly present Percussion: Yes normal to percussion Auscultation: normal bowel sounds Rectal Exam - Female: deferred Skin General skin exam: no rashes or lesions noted, turgor normal, skin not dry, no jaundice, No spider nevi and no striae Rashes: no rashes Nails: normal Neuro General: oriented to person, oriented to place and oriented to time Cranial nerves: Yes Equal, round and reactive pupils present and Yes Normal hearing present Speech: No Abnormal speech present Extrem General: Yes normal to inspection, No clubbing, No cyanosis and No edema Psych Appearance: grossly normal and well kempt Mental Status: mental status grossly normal Speech and movement: Normal speech and movement present Affect: normal affect Attitude: cooperative Thought process: Normal thought process present and not confabulating Thought content: Normal thought content present Insight: Limited insight present (Psych) Judgement: Limited judgement present (Psych) Assessment & Plan Assessment & Plan (1) Mass in neck: Code(s): R22.1 - Localized swelling, mass and lump, neck Category: Medical (2) Abdominal cramping: Code(s): R10.9 - Unspecified abdominal pain Category: Medical (3) Hives: Code(s): L50.9 - Urticaria, unspecified Category: Medical Plan She has had the epi pain only once waking her up at noc. She is taking the famotidine 10mg qam She is breaking out in hives, her will be having L4-L5 decompression surgery and severe back pain. Her dtr also breaks out in hive. Her Gi sx also seem to be driven by stress. She has bentyl if she needs it. RX hydrocortisone cream and I recommend myo as a non drowsy. ROV after holidays. US HEAD AND NECK not yet read Medications: New hydrocortisone 2.5% 1 appl topical BID PRN 59 mL 0RF skin irritation L50.9 - Urticaria, unspecified Refilled famotidine 10 mg PO DAILY 30 tabs 6RF Coding Level of Care Code Est Pt Level 3 (60345) Diagnoses Mass in neck R22.1 Abdominal cramping R10.9 Hives L50.9
[2024-02-22 14:05] VITALS: BP 130/67; PULSE 67; BMI 20.4
== END 2024-02-22 14:25 | disposition home or self-care (01) ==
PROVIDERS: PCP Internal Medicine; Visit Provider Nurse Practitioner
DX: R22.1 Localized swelling, mass and lump, neck (principal); R10.9 Unspecified abdominal pain; L50.9 Urticaria, unspecified
CPT/HCPCS: 99213

== ENCOUNTER → 2024-02-22 13:44 | Outpatient (BNVA) | payer MEDICARE, SELFPAY | PROVIDERS: PCP Internal Medicine; Visit Provider Nurse Practitioner | DX: L50.9 Urticaria, unspecified (principal); R10.9 Unspecified abdominal pain; R22.1 Localized swelling, mass and lump, neck | CPT/HCPCS: 99212 ==

== ENCOUNTER 2024-05-07 09:34 | Outpatient (AMB) | payer MEDICARE, SELFPAY ==
--- NOTE | 2024-05-07 09:46 | AM.OFFWIN_ITS ---
Intake Vital Signs 05/07/24 09:51 Weight 116 lb BP 120/80 Blood Pressure Location Lt brachial Position Sitting Pulse 76 Pulse Source Pulse Oximeter Temp 98.8 F Temp Source Oral Pulse Oximetry (%) 96 Oxygen Delivery Method Room Air Intake Visit Reasons: EP +cov last sun, had paxlovid, still + not well Intake Note: Patient here because she has been sick for about a month now and has been feeling better on and off but started to feel sick again on sunday and tested positive on a home test for covid, was given paxlovid which has not helped. Patient Tobacco Use Status: Never used Tobacco Allergies Iodinated Contrast Media [Contrast Dye] Allergy (Severe, Verified 05/07/24 09:54) Anaphylaxis oxycodone [Percocet] Allergy (Severe, Verified 05/07/24 09:54) Anaphylaxis acetaminophen [Percocet] Allergy (Intermediate, Verified 05/07/24 09:54) Rash latex Allergy (Intermediate, Verified 05/07/24 09:54) Rash Do you need a note to return to daycare/school/sports/work: No HPI HPI Comments History of Present Illness Details History The patient is an 84-year-old female presenting with lingering cough and shortness of breath following COVID-19 infection. Initially suffered respiratory symptoms and a positive COVID-19 test on the after persistent pneumonia symptoms despite 2 antibiotic treatment suggested by other medical practitioners. Albuterol was also administered without full relief. A subsequent chest x-ray revealed only a small lung pna whihc was treated with the 2 abx. COVID-19 treatment with Paxlovid improved symptoms, though nasal congestion and weakness increased at times, and sputum was clear when expectorated but yellow occasionally. Her tested positive and followed a similar treatment; both experienced fluctuating olfactory senses and fatigue. The patient notes ear tenderness and fluid retention likely from hearing aid use. Patients biggest issue is residual cough and runny nose. Physical Exam General: Cooperative, healthy appearing, comfortable and no acute distress Orientation/consciousness: Patient oriented x3 Limitations: No limitations Head: Normal to inspection Ears: Hearing grossly normal bilaterally, external ears normal and TM's normal bilaterally. scant fluid right TM Nose: Normal external nose present, Normal nares present and No nasal discharge present Face and sinus: Normal facial exam and Yes sinuses nontender Mouth: Normal oral and palatal mucosa present and moist mucous membranes Throat: Yes tonsils normal, Yes uvula midline. Posterior oropharynx erythema Eyes: Appearance normal, both eyes and all related structures Neck: Normal visual inspection Respiratory: Clear to auscultation bilaterally. Normal respiratory effort, able to speak in complete sentences, Actively coughing, no respiratory distress, not tachypneic, no tripod positioning and no use of accessory muscles Cardiovascular: Regular rate and rhythm. normal s1 and s2 Skin: No rashes or lesions noted Neuro: Patient oriented x3 Extremities: Yes no clubbing, cyanosis or edema PFSH Medical History Abdominal cramping Diarrhea Pre-op evaluation Bronchitis Cellulitis of right forearm Viral syndrome Annual physical exam Pneumonia Essential hypertension Osteoarthritis Hyperlipidemia Breast cancer Peripheral vascular disease Surgical History H/O colonoscopy History of left cataract surgery Breast cancer, left breast Hx of right cataract extraction History of right knee surgery History of retinal detachment History of tonsillectomy Family History Mother No problems noted. Father No problems noted. Maternal Aunt Breast cancer Son Mental health disorder Social History Housing: House Are you a primary healthcare applications analyst to a significant other at home: No Do you presently have visiting nurse or other home services: No Alcohol intake: never Patient Tobacco Use Status: Never used Tobacco e-Cigarette/Vaping Use: Never Used Second Hand Smoke Exposure: No service: No Current occupational status: retired Cognitive needs: No Hearing needs: Yes (hearing aide) Vision needs: Yes (glasses) Review of Systems Const All systems reviewed & are unremarkable except as noted in HPI and below Physical Exam Vital Signs: Last Vital Signs Temp 98.8 F 05/07/24 09:51 Pulse 76 05/07/24 09:51 BP 120/80 05/07/24 09:51 Pulse Ox 96 05/07/24 09:51 Oxygen Delivery Method Room Air 05/07/24 09:51 Assessment & Plan Assessment & Plan (1) Cough: Code(s): R05 - Cough Qualifiers: Cough type: acute Qualified Code(s): R05.1 - Acute cough Plan: 96% sat on RA, pt well appearing, lingering cough but lungs clear to ausculation. Will get CXR to exclude PNA, if positive, abx will be sent to pharmacy. The focus is to address the ongoing symptoms post COVID-19 recovery, especially the cough and shortness of breath. A chest x-ray is arranged to exclude continuations of pneumonia. To further support recovery, increased dosage Tessalon Perles are prescribed to assist symptom relief, specifically targeting nocturnal coughing episodes. Continuous use of albuterol is advised to assist respiration. Given prolonged viral presence, no further COVID-19 testing is recommended as it may yield positive results for extended periods. The patient is advised on symptom expectations and potential duration while maintaining vigilance for any escalation in symptoms warranting further intervention. Patient was informed and verbally consented to the use of an ambient scribe for clinic note documentation during this visit Orders: Orders XR chest 2V Today R05.9 - Cough, unspecified Medications: New benzonatate 200 mg PO TID PRN 14 caps 0RF cough Coding Level of Care Code Est Pt Level 4 (87127) Diagnoses Acute cough R05.1 Cough type: acute
[2024-05-07 09:51] VITALS: BP 120/80; PULSE 76; TEMP 37.1; O2SAT 96
== END 2024-05-07 10:26 | disposition home or self-care (01) ==
PROVIDERS: PCP Internal Medicine; Visit Provider Physician Assistant
DX: R05.1 Acute cough (principal)

== ENCOUNTER 2024-05-07 09:34 | Outpatient (REF) | payer MEDICARE, SELFPAY ==
--- NOTE | ~2024-05-07 | XR_ITS ---
EXAMINATION: XR CHEST CLINICAL INFORMATION: R05.9 - Cough, unspecified COMPARISON: 08/22/2021. TECHNIQUE: 2 views of the chest were obtained. FINDINGS: The cardiac, hilar, and mediastinal contours are normal. Aorta is calcified. The lungs are diffusely hyperaerated, however clear bilaterally. There is no pneumothorax or pleural effusion. There is no focal osseous or soft tissue abnormality. Surgical clips left axilla. XR/XR chest 2V IMPRESSION: No active pulmonary disease. Electronically signed by: Armond Tejada MD 05/07/2024 11:07 AM [facility] [place]
== END 2024-05-07 09:35 | disposition home or self-care (01) ==
LOC: HO.HMGCLDS 09:34
PROVIDERS: PCP Internal Medicine; Visit Provider Physician Assistant
DX: R05.1 Acute cough (principal)
CPT/HCPCS: 71046; 99212

== ENCOUNTER → 2024-05-07 10:19 | Outpatient (BNV) | payer MEDICARE, SELFPAY | PROVIDERS: PCP Internal Medicine; Visit Provider Radiology Diagnostic Radiology | DX: R05.9 Cough, unspecified (principal) | CPT/HCPCS: 71046 ==

== ENCOUNTER 2024-05-08 11:12 | Outpatient (REF) | payer MEDICARE, SELFPAY ==
--- NOTE | ~2024-05-08 | US_ITS ---
CLINICAL HISTORY: R10.9 - Unspecified abdominal pain US abdomen complete Comparison: None Findings: The visualized pancreas is normal. Small abdominal aortic plaques. Liver measures 14.8 cm length and demonstrates mildly coarse echotexture. There is no intrahepatic bile duct dilatation. The common duct is 4 mm in diameter. The gallbladder is normal. There is no sonographic Rose sign. The main portal vein is antegrade. The right kidney is 10.2 cm in length. The left kidney is 10.2 cm in length. A few simple left renal cysts measuring up to 15 mm. Otherwise unremarkable kidneys without hydronephrosis. The spleen is normal. Spleen measures 9.1 cm. No ascites. IMPRESSION: Mildly coarse hepatic echotexture may be incidental for patient's age or be secondary to underlying hepatic disease. Clinical +/-LFT correlation recommended. This document has been electronically signed by: Maria D Wong MD on 05/09/2024 09:44:10
== END 2024-05-08 11:13 | disposition home or self-care (01) ==
LOC: HO.US 11:12
PROVIDERS: PCP Internal Medicine; Visit Provider Nurse Practitioner
DX: R10.9 Unspecified abdominal pain (principal)
CPT/HCPCS: 76700

== ENCOUNTER → 2024-05-08 11:15 | Outpatient (BNV) | payer MEDICARE, SELFPAY | PROVIDERS: PCP Internal Medicine; Visit Provider Radiology Diagnostic Radiology | DX: R10.9 Unspecified abdominal pain (principal) | CPT/HCPCS: 76700 ==

== ENCOUNTER 2024-05-21 09:24 | Outpatient (REF) | payer MEDICARE, SELFPAY ==
--- NOTE | ~2024-05-21 | US_ITS ---
EXAMINATION: US NONINVASIVE ASSESSMENT OF THE BOTH LOWER EXTREMITY WITH ARTERIAL DUPLEX AND ANKLE BRACHIAL INDICES (ABIS) CLINICAL INFORMATION: Peripheral vascular disease, unspecified. COMPARISON: Ultrasound and arterial Doppler report dated July 10, 2022. TECHNIQUE: Duplex Doppler techniques with waveform analysis and measurement of velocities in the common femoral, profunda femoris, superficial femoral, popliteal and tibial arteries were performed. In addition, ankle pulse volume recordings, ankle pressure measurements and ankle brachial indices were obtained of the both lower extremity arterial system. The study was performed only at rest. FINDINGS: NONINVASIVE ASSESSMENT OF THE ARTERIES OF BILATERAL LOWER EXTREMITIES WITH ABIs: RIGHT LEG: Ankle-brachial index: 1.12 Ankle PVR: Normal waveforms. LEFT LEG: Ankle-brachial index: 1.04. Left ankle PVR: Abnormal waveforms. DAVE Reference: 0.9 - 1.4 = normal - no significant arterial disease 0.7 - 0.89 = mild peripheral arterial disease 0.51 - 0.69 = moderate peripheral arterial disease 0.50 = severe peripheral arterial disease RIGHT LOWER EXTREMITY DUPLEX ULTRASOUND: Common femoral artery: 85 cm/s. Biphasic waveforms. Profunda femoris artery: 65 cm/s. Triphasic waveforms. Superficial femoral artery (proximal): 81 cm/s. Triphasic waveforms. Superficial femoral artery (mid): 64 cm/s. Triphasic waveforms. Superficial femoral artery (distal): 63 cm/s. Triphasic waveforms. Popliteal artery: 70 cm/s Triphasic waveforms. Posterior tibial artery: 44 cm/s Triphasic waveforms. Posterior tibialis artery: 44 cm/s. Triphasic waveforms. Peroneal arteries: 40 cm/s. Triphasic waveforms. Anterior tibialis artery: 49 cm/s. Triphasic waveforms. Dorsalis pedis artery: 33 cm/s. Biphasic waveform. LEFT LOWER EXTREMITY DUPLEX ULTRASOUND: Common femoral artery: 78 cm/s. Triphasic waveforms. Profunda femoris artery: 53 cm/s. Biphasic waveforms. Superficial femoral artery (proximal): 43 cm/s. Biphasic waveforms. Superficial femoral artery (mid): 50 cm/s. Biphasic waveforms. Superficial femoral artery (distal): 48 cm/s. Triphasic waveforms. Popliteal artery: 107 cm/s. Calcified plaque. Biphasic waveform. Posterior tibial artery: 34 cm/s Biphasic waveforms. Peroneal artery: 16 cm/s. Biphasic waveform. Anterior tibialis artery: 58 cm/s. Biphasic waveform. Dorsalis pedis artery: 64 cm/s. Biphasic waveforms. US/US arterial duplex BI w/ DAVE IMPRESSION: Right lower extremity: Moderate inflow disease, below the ankle, right dorsalis pedis artery. Left lower extremity: Moderate inflow disease below the knee, left lower extremity. Calcified plaque, left popliteal artery. Electronically signed by: Ivan Ha MD 05/22/2024 08:34 AM HEATHER
== END 2024-05-21 09:25 | disposition home or self-care (01) ==
LOC: HO.US 09:24
PROVIDERS: PCP Internal Medicine; Visit Provider Surgery Vascular Surgery
DX: J06.9 Acute upper respiratory infection, unspecified (principal); Z86.16 Personal history of COVID-19; I73.9 Peripheral vascular disease, unspecified
CPT/HCPCS: 93922; 93925; 99212

== ENCOUNTER → 2024-05-21 09:27 | Outpatient (BNV) | payer MEDICARE, SELFPAY | PROVIDERS: PCP Internal Medicine; Visit Provider Radiology Diagnostic Radiology | DX: I73.9 Peripheral vascular disease, unspecified (principal) | CPT/HCPCS: 93922; 93925 ==

== ENCOUNTER 2024-05-27 08:28 | Outpatient (REF) | payer MEDICARE, SELFPAY ==
[2024-05-27 10:08] LABS: MANUAL DIFF FLAG NO
[2024-05-27 10:28] LABS: Basophils Percent Auto 0.2 % (0-2); Eosinophils Absolute Auto 0.2 X10*3/uL (0.0-0.4); Eosinophils Percent Auto 1.5 % (0-4); Hematocrit 38.7 % (37.0-47.0); Hemoglobin 12.3 g/dl (12.0-16.0); Imm Gran Abs Auto 0.03 X10*3/uL (0.00-0.03); Imm Gran Pct Auto 0.3 % (0.0-0.4); Lymphocytes Absolute Auto 1.5 X10*3/uL (1.2-4.9); Lymphocytes Percent Auto 14.2 % (20-40); Mean Corpuscular HGB Conc 31.8 g/dl (31.0-35.0); Mean Corpuscular Hemoglobin 28.6 pg (27.0-33.0); Mean Platelet Volume 11.9 fL (9.4-12.3); Monocytes Absolute Auto 0.5 X10*3/uL (0.1-1.2); Monocytes Percent Auto 4.6 % (2-11); Neutrophils Absolute Auto 8.1 x10*3/uL (2.0-8.3); Neutrophils Percent Auto 79.2 % (45-73); Platelet Count 201 X10*3/uL (160-400); Red Cell Distribution Width 14.2 % (11.0-16.0); White Blood Count 10.2 X10*3/uL (4.8-10.8)
[2024-05-27 10:32] LABS: Prothrombin Time 11.3 SEC (10.9-12.4)
[2024-05-27 10:38] LABS: Alanine Aminotransferase 16 U/L (0-31); Albumin Level 3.9 g/dL (3.5-5.0); Alkaline Phosphatase 49 U/L (39-117); Anion Gap 9 (12-20); Aspartate Amino Transferase 30 U/L (5-31); Bilirubin Total 0.5 mg/dL (0.0-1.0); Blood Urea Nitrogen 23 mg/dL (9-16); Calcium 9.6 mg/dL (8.4-10.2); Carbon Dioxide 26 mmol/L (22-29); Chloride 108 mmol/L (96-108); Estimated Glomerular Filt Rate > 60; Glucose Random 99 mg/dL (60-115); Potassium 3.4 mmol/L (3.3-5.1); Sodium 140 mmol/L (135-145); Total Protein 7.6 g/dL (6.5-8.0)
[2024-05-27 11:01] LABS: HBc Num1 0.14 S/CO (0.00-0.79); HBsAGNum1 0.33 S/CO (0.00-0.99); Hepatitis B Core Antibody Nonreactive (Nonreactive); Hepatitis B Surface Antigen Negative (Negative); ~HepC Num1 0.14 S/CO (0.00-0.79); ~Hepatitis B Surface Antibody NONREACTIVE (Nonreactive); ~Hepatitis C Antibody Nonreactive (Nonreactive)
[2024-06-05 16:23] LABS: FIB-ALT 17 U/L (6-29); FIB-Alpha-2-Macroglobulin 416 mg/dL (106-279); FIB-Apolipoprotein A1 184 mg/dL (101-198); FIB-GGT 12 U/L (3-65); FIB-Haptoglobin 202 mg/dL (43-212); FIB-Total Bilirubin 0.5 mg/dL (0.2-1.2); Liver Fibrosis Score 0.44; Liver Fibrosis Stage F1-F2; Nec Inflam Act Grade A0; Nec Inflam Act Score 0.07; Reference ID 5344660
== END 2024-05-27 08:29 | disposition home or self-care (01) ==
LOC: HO.HMGCLDS 08:28
PROVIDERS: PCP Internal Medicine; Visit Provider Internal Medicine Gastroenterology
DX: R93.5 Abnormal findings on diagnostic imaging of other abdominal regions, including retroperitoneum (principal)
CPT/HCPCS: 36415; 80053; 81596; 85025; 85610; 86704; 86706; 86803; 87340

== ENCOUNTER 2024-05-28 14:05 | Outpatient (AMB) | payer MEDICARE, SELFPAY ==
[2024-05-28 14:10] VITALS: BP 140/70; PULSE 77; O2SAT 97; BMI 19.7
--- NOTE | 2024-05-28 14:10 | MHC.PC.OV ---
Vital Signs 05/28/24 14:10 Height 5 ft 4 in Weight 115 lb BMI 19.7 BP 140/70 H Blood Pressure Location Lt brachial Position Sitting Pulse 77 Pulse Source Pulse Oximeter Pulse Oximetry (%) 97 Oxygen Delivery Method Room Air Intake Visit Reasons: cough and phlegm Allergies Iodinated Contrast Media [Contrast Dye] Allergy (Severe, Verified 05/28/24 14:19) Anaphylaxis oxycodone [Percocet] Allergy (Severe, Verified 05/28/24 14:19) Anaphylaxis acetaminophen [Percocet] Allergy (Intermediate, Verified 05/28/24 14:19) Rash latex Allergy (Intermediate, Verified 05/28/24 14:19) Rash Medication List - Last Reconciled 05/28/24 by SARAVANAN Mckinney albuterol sulfate 90 mcg/actuation 2 puffs inhalation Q4-6H PRN amoxicillin 500 mg PO Q8H ascorbate calcium (vitamin C) 600 mg PO DAILY aspirin 81 mg PO DAILY biotin 5 mg PO DAILY cholecalciferol (vitamin D3) 25 mcg PO DAILY dicyclomine 10 mg PO BID famotidine 10 mg PO DAILY hydrocortisone 2.5% 1 appl topical BID PRN meclizine 25 mg PO DAILY PRN multivitamin 1 tab PO DAILY ondansetron 4 mg PO Q6-8H PRN simvastatin 20 mg PO BEDTIME spironolactone 50 mg PO DAILY zinc sulfate (Orazinc) 50 mg PO DAILY Tobacco use date assessed: 05/28/24 Fall risk assessment: No Falls in past year Last assessed Fall Risk: 05/28/24 Dental Screening Dental Screen Date: 05/28/24 Did you have a dental visit in the last 12 months?: Yes Did you have a dental problem in the last 6 months where you did not have access to dental care?: No Was dental information given to patient?: Patient has dentist HPI cough and phlegm HPI Details Patient is 84 yr old female with significant past medical history heartburn, hives, peripheral vascular disease, essential hypertension The patient is presenting today with a cough she reports that has been going on since April Reports that she has been placed on antibiotics 3 separate times Reports that she had a chest x-ray that showed small area in left lung Chest x-ray reviewed: The lungs are diffusely hyperaerated, however clear bilaterally. There is no pneumothorax or pleural effusion. Patient reports that she also picked up COVID during this ordeal Since then she can not get rid of her cough. Reports that she sleeps fine but when she wakes up in the morning it feels like something is stuck in the back of her throat Reports that she cough hard to remove it and at times she will get a small piece of firm, yellowish, exudate Discussed with patient that 2 of the main things that cause a chronic cough, allergies and GERD The patient is denying other respiratory symptoms at this time The patient does have a history of heartburn she is currently on famotidine 10 mg daily The patient is currently on amoxicillin 500 mg q.8 hours that was started yesterday The patient does endorse heartburn intermittently We will hold her famotidine 10 mg daily and started famotidine 20 mg b.i.d. for 6 weeks to see if cough subsides Discussed with patient if this does not make any difference, she can go back to her 10 mg of famotidine and to contact the office and let us know so we could further explore her cough FORMERLY [facility], [facility] Medical History Abdominal cramping Diarrhea Pre-op evaluation Bronchitis Cellulitis of right forearm Viral syndrome Annual physical exam Pneumonia Essential hypertension Osteoarthritis Hyperlipidemia Breast cancer Peripheral vascular disease Surgical History H/O colonoscopy History of left cataract surgery Breast cancer, left breast Hx of right cataract extraction History of right knee surgery History of retinal detachment History of tonsillectomy Family History Mother No problems noted. Father No problems noted. Maternal Aunt Breast cancer Son Mental health disorder Social History Housing: House Are you a primary field care coordinator to a significant other at home: No Do you presently have visiting nurse or other home services: No Alcohol intake: never Patient Tobacco Use Status: Never used Tobacco Tobacco use type: Cigarette e-Cigarette/Vaping Use: Never Used Second Hand Smoke Exposure: No service: No Current occupational status: retired Cognitive needs: No Hearing needs: Yes (hearing aide) Vision needs: Yes (glasses) Questionnaire PHQ-9 Over the last 2 weeks, how often have you been bothered by any of the following problems? 1. Little interest or pleasure in doing things: not at all 2. Feeling down, depressed, or hopeless: not at all 3. Trouble falling or staying asleep, or sleeping too much: not at all 4. Feeling tired or having little energy: not at all 5. Poor appetite or overeating: not at all 6. Feeling bad about yourself - or that you are a failure or have let yourself or your family down: not at all 7. Trouble concentrating on things, such as reading the newspaper or watching television: not at all 8. Moving or speaking so slowly that other people could have noticed. Or the opposite - being so fidgety or restless that you have been moving around a lot more than usual: not at all 9. Thoughts that you would be better off or of hurting yourself in some way: not at all Total score: 0 Depression Screening Interpretation: Negative Depression Screening Done: Yes 57280 - PHQ-9 Billing: Yes Source: Developed by Drs. Jed Chaves, Gina Arriaza, Rick Prado and colleagues, with an educational claudine from [employer]. Thrive Questionnaire Date Thrive assessed: 05/28/24 AUDIT C Alcohol Use Questionnaire (AUDIT-C) 1. How often do you have a drink containing alcohol?: Never 3. How often do you have six or more drinks on one occasion?: Never Total Score: 0 Score Reviewed/Action Taken: Yes CALVIN-7 AMB Questionnaire CALVIN-7 Date CALVIN - 7 assessed: 05/28/24 Feeling nervous, anxious, or on edge: 0 = Not at all Not being able to stop or control worryin = Not at all Worrying too much about different things: 0 = Not at all Trouble relaxin = Not at all Being so restless that it is hard to sit still: 0 = Not at all Becoming easily annoyed or irritable: 0 = Not at all Feeling afraid as if something awful might happen: 0 = Not at all Total CALVIN-7 score (0-4 normal; 5-9 mild; 10-14 moderate; 15-21 severe): 0 Source: Developed by Drs. Jed Chaves, Rick Sales and colleagues, with an educational claudine from [employer]. CALVIN-7 Assessment Billing CALVIN-7 Assessment Tool: CALVIN-7 Assessment 48197 Review of Systems Const Details: Denies chills, Denies fatigue, Denies fever(s), Denies headache(s) and Denies weakness HEENT Denies change in vision, Denies dizziness, Denies headache(s), Denies hearing loss, Denies nasal congestion, Denies sinus pain, Denies sinus pressure and Denies sore throat Card Denies chest pain, Denies lightheadedness, Denies dyspnea and Denies other (palpitations) Resp +cough, Denies dyspnea and Denies wheezing GI Denies abdominal pain, Denies melena, Denies hematochezia, Denies change in bowel habits, Denies dyspepsia and Denies nausea Denies hematuria and Denies dysuria Musc Denies abnormal gait, Denies myalgias, Denies arthralgias, Denies numbness and Denies tingling Skin/Breast Denies rash, Denies unusual bruising and Denies wounds Neuro Denies abnormal gait, Denies dizziness, Denies headache(s), Denies memory loss, Denies numbness, Denies Sensory deficit (Neuro), Denies tingling and Denies weakness Psych Denies anxiety, Denies depression and Denies memory loss Endo Denies cold intolerance, Denies fatigue, Denies heat intolerance, Denies polydipsia and Denies polyuria Mason/Lymph Denies easy bleeding and Denies easy bruising Aller/Immun Denies wheezing Physical exam (Primary Care) Vital Signs: Last Vital Signs Pulse 77 05/28/24 14:10 BP 140/70 H 05/28/24 14:10 Pulse Ox 97 05/28/24 14:10 Oxygen Delivery Method Room Air 05/28/24 14:10 BMI result Body Mass Index 19.7 Tobacco/Smoking Status: Tobacco use Status Tobacco use date assessed 05/28/24 05/28/24 14:17 Patient Tobacco Use Status Never used Tobacco 05/28/24 14:10 Tobacco use type Cigarette 05/28/24 14:17 e-Cigarette/Vaping Use Never Used 05/28/24 14:10 PHQ-9: PHQ-9 Score PHQ-9: Total score 0 05/30/24 05:57 Depression Screening Interpretation: Negative Thrive Assessment: Date of Thrive Assessment Date Thrive assessed 05/28/24 05/28/24 14:10 Const Other: General: no acute distress, well developed, alert and awake Nutritional Appearance: well nourished Orientation/consciousness: patient oriented x3 HENMT Head: Yes normocephalic and Yes atraumatic Ears: hearing grossly normal bilaterally and TM's normal bilaterally General nose exam: Normal external nose present and Normal nares present Mouth: Normal oral and palatal mucosa present and moist mucous membranes Teeth and gingiva: dentition normal Throat: Yes oropharynx normal Eyes Pupils: Equal, round and reactive pupils present and Pupil accommodation reflex normal EOM: EOMs intact bilaterally Neck Neck: Yes normal visual inspection, Yes no lymphadenopathy and Yes trachea midline Thyroid: Thyroid normal Lymphatic: no lymphadenopathy noted Resp Effort & Inspection: normal respiratory effort Auscultation: clear to auscultation bilaterally Cardio Rate: regular rate Rhythm: regular rhythm Heart sounds: S1 normal heart sound present, S2 normal heart sound present, no gallops, no murmurs and no rubs GI Palpation (GI): Abdomen is soft and nontender to palpation Auscultation: normal bowel sounds General: Yes no CVA tenderness Skin General: warm and dry. Normal skin color. Normal skin turgor Lesions: no lesions Nails: normal Extrem General: Yes normal to inspection, No edema and No calf tenderness Psych Appearance: grossly normal Affect: normal affect Attitude: cooperative Thought process: Normal thought process present Coding Level of Care Code Est Pt Level 4 (28681) Diagnoses Chronic cough R05.3 Heart burn R12 Hives L50.9 Additional Codes CALVIN-7 Assessment Billing - CALVIN-7 Assessment Tool: CALVIN-7 Assessment 92228 ([id number]) PHQ-9 - 82871 - PHQ-9 Billing: Yes ([id number]) Time Spent (min) 39 Assessment & Plan Assessment & Plan (1) Chronic cough: Code(s): R05.3 - Chronic cough Category: Medical Plan: The patient has been placed on 3 different antibiotics since mid April for ongoing cough She is currently on amoxicillin 500 mg q.8 hours She came in the office because she wanted to be further evaluated. She had a chest x-ray that was negative Patient does have intermittent heartburn and is currently on famotidine 10 mg. We will increase the famotidine to 20 mg b.i.d. x6 weeks and see if that helps (2) Heart burn: Code(s): R12 - Heartburn Category: Medical Plan: Patient likely has GERD The patient reports intermittent heartburn, not sure of his depending on what she eats Reports that she has not been paying attention She is on famotidine 10 mg daily, will hold her 10 mg for now Started famotidine 20 mg b.i.d. for 6 weeks. The patient will contact the office to let us know if her cough subsides or continues, for further evaluation (3) Hives: Code(s): L50.9 - Urticaria, unspecified Category: Medical Plan: The patient reports that she takes Ernestina OTC for intermittent rashes Discussed with patient that if her cough is due to allergies the Ernestina might help as well Patient reports that she has not felt any difference in her cough after taking the Ernestina Plan Follow-up as scheduled next month with her PCP Medications: New famotidine 20 mg PO BID 6 weeks 84 tabs 0RF R12 - Heartburn On Hold famotidine Hold Comment: Doctor's Order 10 mg PO DAILY 30 tabs 6RF
== END 2024-05-28 15:00 | disposition home or self-care (01) ==
PROVIDERS: PCP Internal Medicine
DX: R05.3 Chronic cough (principal); R12 Heartburn; L50.9 Urticaria, unspecified

== ENCOUNTER → 2024-05-28 14:05 | Outpatient (BNVA) | payer MEDICARE, SELFPAY | PROVIDERS: PCP Internal Medicine | DX: R05.3 Chronic cough (principal); R12 Heartburn; L50.9 Urticaria, unspecified | CPT/HCPCS: 96127; 99212 ==

== ENCOUNTER 2024-07-23 11:11 | Outpatient (AMB) | payer MEDICARE, SELFPAY ==
--- NOTE | 2024-07-23 11:26 | A.OFFVIS_ITS ---
Vital Signs 07/23/24 11:27 Height 5 ft 4 in Weight 110 lb 3.698 oz BMI 18.9 BP 122/78 Blood Pressure Location Lt brachial Position Sitting Pulse 85 Pulse Source Pulse Oximeter Pulse Oximetry (%) 95 Oxygen Delivery Method Room Air Intake Visit Reasons: cough/short of breath Intake Note: pt is here for sick visit that she has been dealing with urgent care visits, was dx with Covid in April in 2024, and it has left her with a hacking cough, feels like phelgm is stuck in throat in am, chunks of phlgem in am that are yellow. Office Engineer Required: No Allergies Iodinated Contrast Media [Contrast Dye] Allergy (Severe, Verified 07/23/24 11:41) Anaphylaxis oxycodone [Percocet] Allergy (Severe, Verified 07/23/24 11:41) Anaphylaxis acetaminophen [Percocet] Allergy (Intermediate, Verified 07/23/24 11:41) Rash latex Allergy (Intermediate, Verified 07/23/24 11:41) Rash Medication List - Last Reconciled 07/23/24 by Jo Ann Vigil MD albuterol sulfate 90 mcg/actuation 2 puffs inhalation Q4-6H PRN ascorbate calcium (vitamin C) 600 mg PO DAILY aspirin 81 mg PO DAILY biotin 5 mg PO DAILY cholecalciferol (vitamin D3) 25 mcg PO DAILY dicyclomine 10 mg PO BID famotidine 10 mg PO DAILY famotidine 20 mg PO BID 6 weeks hydrocortisone 2.5% 1 appl topical BID PRN meclizine 25 mg PO DAILY PRN multivitamin 1 tab PO DAILY ondansetron 4 mg PO Q6-8H PRN simvastatin 20 mg PO BEDTIME spironolactone 50 mg PO DAILY zinc sulfate (Orazinc) 50 mg PO DAILY HPI HPI cough/short of breath: Details: Coby is 84 years old, younger looking female, of thin build, physically very active, who comes to see me because of ongoing cough since April 2024. Russel has always been nonsmoker. She has no history of previous lung disease. She has been physically very active. 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 Her , Jose Antonio who used to be my patient, in June 2024. While he was being treated in the hospital in [place], normal contracted COVID infection in April of this year. She recovered from the COVID infection uneventfully but continued to have cough. She feels like excessive mucus in her upper airways, and an urge to clear, especially in the morning hours, She gets intermittent cough, mostly dry, cough medicines such as benzonatate did not help much. Finally she is started on albuterol inhaler to use p.r.n., and she does notice some improvement with that. She denies any shortness of breath on exertion and denies any wheezing attacks. She has low-grade GERD symptoms controlled with small dose of famotidine. She does not have history of any specific allergies. Chest x-ray in April of this year showed somewhat hyperinflated lungs but no other significant abnormality CBC in May of this year was essentially normal there was no leukocytosis or eosinophilia. [facility] IS REVIEWED. [facility] Medical History Abdominal cramping Diarrhea Pre-op evaluation Bronchitis Cellulitis of right forearm Viral syndrome Annual physical exam Pneumonia Essential hypertension Osteoarthritis Hyperlipidemia Breast cancer Peripheral vascular disease Surgical History H/O colonoscopy History of left cataract surgery Breast cancer, left breast Hx of right cataract extraction History of right knee surgery History of retinal detachment History of tonsillectomy Family History Mother No problems noted. Father No problems noted. Maternal Aunt Breast cancer Son Mental health disorder Social History Housing: House Are you a primary disabilities caregiver to a significant other at home: No Do you presently have visiting nurse or other home services: No Alcohol intake: never Patient Tobacco Use Status: Never used Tobacco Tobacco use type: Cigarette e-Cigarette/Vaping Use: Never Used Second Hand Smoke Exposure: No service: No Current occupational status: retired Cognitive needs: No Hearing needs: Yes (hearing aide) Vision needs: Yes (glasses) Review of Systems Const All systems reviewed & are unremarkable except as noted in HPI and below Eyes Reports no additional complaints ENT Reports no additional complaints Card Denies chest pain, Denies rapid heart rate and Denies irregular heart rhythm Resp Reports as per HPI GI Reports dyspepsia and Reports heartburn (MILD ) Reports no additional complaints Skin/Breast Reports system reviewed and no additional complaints, except as documented Neuro Reports no additional complaints Psych Reports no additional complaints Endo Reports no additional complaints Mason/Lymph Reports no additional complaints Aller/Immun Reports no additional complaints Physical Exam Vital Signs: Last Vital Signs Pulse 85 07/23/24 11:27 BP 122/78 07/23/24 11:27 Pulse Ox 95 07/23/24 11:27 Oxygen Delivery Method Room Air 07/23/24 11:27 BMI result Body Mass Index 18.9 SHE IS OF A THIN BUILD, HEALTHY LOOKING FEMALE Const General: healthy appearing, comfortable, no acute distress, alert and awake Orientation/consciousness: patient oriented x3 HEENT Head: Yes normal to inspection General nose exam: No nasal polyps present and No nasal discharge present Face and sinus: Yes sinuses nontender Mouth: oropharynx normal Throat: Yes posterior oropharynx normal Eyes General: appearance normal, both eyes and all related structures Neck Neck: Yes normal visual inspection, Yes no lymphadenopathy, Yes trachea midline and Yes no JVD Thyroid: Thyroid normal Chest Chest palpation & inspection: normal inspection of the chest, normal palpation of entire chest wall and no tenderness Resp Other: PERCUSSION NOTE RESONANT, BREATH SOUNDS ARE SLIGHTLY DISTANT BUT EQUAL ON BOTH SIDES. NO WHEEZES RHONCHI OR CREPITATIONS ARE HEARD. Cardio Palpation: normal PMI Rate: regular rate Rhythm: regular rhythm Heart sounds: Gallop heart sound present and Murmur heart sound present Peripheral pulses: Peripheral pulses 2+ throughout GI Palpation (GI): Soft to palpation, nontender, No hepatosplenomegaly present and no masses Auscultation: normal bowel sounds Back/Spine/Pelvis Thoracic/Lumbar Spine: thoracic and lumbar spine normal to inspection Skin General skin exam: no rashes or lesions noted Neuro General: patient oriented x3 and no focal motor deficits Cranial nerves: Yes CN's II-XII intact bilaterally Extrem General: Yes normal to inspection, Yes no clubbing, cyanosis or edema and Yes no calf tenderness Psych Speech and movement: Normal speech and movement present Results Reviewed Results Reviewed: CHEST X-RAY OF 05/07/2024 REVIEWED. LUNGS ARE HYPERINFLATED, WITH FLATTENING OF THE DIAPHRAGMS. .NO INFILTRATES ARE NOTED THERE IS SOME THICKENING OF THE BRONCHIAL LININGS. CBC ON 05/27/2024 NORMAL. Assessment & Plan Assessment & Plan (1) Chronic cough: Comment: PERSISTENT, ONGOING COUGH SINCE APRIL 2024, POST INFECTIOUS, WITH HYPER ACTIVE AIRWAYS, PROBABLY FOLLOWING COVID INFECTION. RULE OUT CHRONIC OBSTRUCTIVE LUNG DIS.EASE Code(s): R05.3 - Chronic cough Category: Medical Plan: PULMONARY FUNCTION TEST IS ORDERED. PATIENT EXPLAINED ABOUT THE NATURE OF HER COUGH. ADVISED TO CONTINUE USING ALBUTEROL HFA 1 OR 2 PUFFS Q 6 HOURS BUT ONLY P.R.N.. USE STEAM INHALATIONS ESPECIALLY IN THE MORNING HOURS. MAY USE ROBITUSSIN 2 TSP T.I.D. P.R.N. FOR COUGH. FURTHER PLANS TO BE MADE AFTER THE PULMONARY FUNCTION TEST. Coding Level of Care Code New Pt Level 3 (07593) Diagnoses Chronic cough R05.3
[2024-07-23 11:27] VITALS: BP 122/78; PULSE 85; O2SAT 95; BMI 18.9
--- OUTSIDE RECORDS SUMMARY | 2024-07-23 13:16 | XMS_ITS | Clinical Summary ---
Author Organization [facility] Address [address] [place] [id number] Care Team Providers Care Transport Rn Name Role Phone Unavailable Primary Care Provider Unavailabl e Allergies Active Allergy Reactions Criticality Noted Date Comments Latex Swelling Medium 06/21/2024 Oxycodone-Acetaminophen Anaphylaxis High 06/21/2024 Medications Medication Sig Dispensed Refills Start Date End Date Status albuterol (PROVENTIL HFA; VENTOLIN HFA) 108 (90 Base) MCG/ACT inhaler TAKE 1 PUFF BY MOUTH 3 TIMES A DAY 04/14/2024 Active famotidine (PEPCID) 20 MG tablet TAKE 1 TABLET BY MOUTH TWICE A DAY FOR 6 WEEKS 05/28/2024 Active simvastatin (ZOCOR) 20 MG tablet 06/17/2024 Active spironolactone (ALDACTONE) 50 MG tablet 04/10/2024 Active diclofenac enteric coated (VOLTAREN) 50 MG EC tablet 04/17/2024 Active predniSONE (DELTASONE) 10 MG tabletIndications:Bro nchitis Take 40 mg (= 4 tablets) by mouth daily for 2 days, then 30 mg (= 3 tablets) daily for 2 days, then 20 mg (= 2 tablets) daily for 2 days, then 10 mg (= 1 tablet) daily for 2 days. Take with food. 20 tablet 06/21/2024 Active Active Problems No known active problems Encounters Date Type Department Care Team Description 06/21/2024 11:45 AM EST Office Visit [facility] [address] [phone] Nimesh Garcia MD Grillo, Kirsten D, PA-C Bronchitis (Primary Dx) from Last 3 Months Social History Tobacco Use Types Packs/Day Years Used Date Smoking Tobacco: Never Smokeless Tobacco: Never Tobacco Cessation:Counseling Given: Not Answered Sex and Gender Information Value Date Recorded Sex Assigned at Not on file Gender Identity Not on file Sexual Orientation Not on file Last Filed Vital Signs Vital Sign Reading Time Taken Comments Blood Pressure 140/78 06/21/2024 11:51 AM EST Pulse 84 06/21/2024 11:51 AM EST Temperature 36.7 ??C (98.1 ??F) 06/21/2024 11:[address] Respiratory Rate 16 06/21/2024 11:51 AM EST Oxygen Saturation 98% 06/21/2024 11:51 AM EST Inhaled Oxygen Concentration - - Weight 53.1 kg (117 lb) 06/21/2024 11:51 AM EST Height 165.1 cm (5' 5 ) 06/21/2024 11:51 AM EST Body Mass Index 19.47 06/21/2024 11:51 AM EST Plan of Treatment Health Maintenance Due Date Last Done Comments DTaP/Tdap/Td Vaccines (1 - Tdap) 1958 Pneumococcal Vaccines 50+ (1 of 1 - PCV) 1989 Zoster (Shingles) Vaccine (1 of 2) 1989 DXA Bone Density (Females,Ag es 65 and older) 01/04/2004 RSV Vaccine 60 years and old er and Patients (1 - 1-dose 75+ series) 2014 Influenza Vaccine 11/15/2023 COVID-19 Vaccine (2023-2 5 season) 2023 Hepatitis B Vaccines Aged Out No long er eligible based on patient's age to complete this topic
--- OUTSIDE RECORDS SUMMARY | 2024-07-23 13:16 | XMS_ITS ---
Author Name [facility] Organization Unknown History of Medication Use Medication Directions Dispensed Refills Start Date End Date Stat us simvastatin (ZOCOR) 20 MG tablet 06/17/2024 active albuterol (PROVENTIL HFA; VENTOLIN HFA) 108 (90 Base) MCG/ACT inhaler TAKE 1 PUFF BY MOUTH 3 TIMES A DAY 04/14/2024 active diclofenac enteric coated (VOLTAREN) 50 MG EC tablet 04/17/2024 active famotidine (PEPCID) 20 MG tablet TAKE 1 TABLET BY MOUTH TWICE A DAY FOR 6 WEEKS 05/28/2024 active spironolactone (ALDACTONE) 50 MG tablet 04/10/2024 active predniSONE (DELTASONE) 10 MG tablet Take 40 mg (= 4 tablets) by mouth daily for 2 days, then 30 mg (= 3 tablets) daily for 2 days, then 20 mg (= 2 tablets) daily for 2 days, then 10 mg (= 1 tablet) daily for 2 days. Take with food. 06/21/2024 active Problems Problem Status Onset Date Problem Type Date of Resoluti on Source Bronchitis active EncounterDiagnosisAct CCT Encounters Encounter Type Encounter Reason Primary Diagnosis Location Date Ambulatory Cough [facility]ough [facility] 06/21/2024 Care Team Organization Name Specialty Phone Email Start Date End Da hillary [employer] 06/25/2024 [facility] 06/21/2024
== END 2024-07-23 12:08 | disposition home or self-care (01) ==
LOC: HO.HPS 11:12
PROVIDERS: PCP Internal Medicine; Visit Provider Internal Medicine
DX: R05.3 Chronic cough (principal)
CPT/HCPCS: 99203

== ENCOUNTER → 2024-07-23 11:11 | Outpatient (BNVA) | payer MEDICARE, SELFPAY | PROVIDERS: PCP Internal Medicine; Visit Provider Internal Medicine | DX: R05.3 Chronic cough (principal) | CPT/HCPCS: 99202 ==

== ENCOUNTER 2024-07-30 07:35 | Outpatient (REF) | payer MEDICARE, SELFPAY ==
--- OUTSIDE RECORDS SUMMARY | 2024-07-30 07:39 | XMS_ITS | Clinical Summary ---
Author Organization [facility] Address [address] [place] [address] Care Team Providers Care Career Specialist Name Role Phone Unavailable Primary Care Provider Unavailabl e Allergies Active Allergy Reactions Criticality Noted Date Comments Latex Swelling Medium 06/21/2024 Oxycodone-Acetaminophen Anaphylaxis High 06/21/2024 Medications albuterol (PROVENTIL HFA; VENTOLIN HFA) 108 (90 [...] tablet 04/17/2024 Active predniSONE (DELTASONE) 10 MG tabletIndication s:Bronchitis Take 40 mg (= 4 tablets) by [...] Description 06/21/2024 11:45 AM EST Office Visit [facility] [address] [phone] Nimesh Garcia MD Grillo, Kirsten D, PA-C Bronchitis (Primary Dx) from Last 3 Months Social History Tobacco Use Types Packs/Day Years Used Date Smoking Tobacco: Never Smokeless Tobacco: Never Tobacco Cessation:Counseling Given: Not Answered Comments Unknown Sex and Gender Information Value Date Recorded Sex Assigned at Not on file Legal Sex Female 11:00 AM EST Gender Identity Not on file Sexual Orientation [...] series) 2014 Influenza Vaccine 11/15/2023 COVID-19 Vaccine ( - 2023-2 5 season) 2023 Hepatitis B Vaccines Aged Out No long er eligible based on patient's age to complete this topic Insurance [facility] MGD MEDICARE
[2024-07-30 10:22] LABS: Hematocrit 31.9 % (37.0-47.0); Hemoglobin 9.7 g/dl (12.0-16.0); Mean Corpuscular HGB Conc 30.4 g/dl (31.0-35.0); Mean Corpuscular Hemoglobin 25.3 pg (27.0-33.0); Mean Corpuscular Volume 83.3 fL (80.0-98.0); Platelet Count 392 X10*3/uL (160-400); Red Blood Count 3.83 X10*6/uL (4.20-5.50); Red Cell Distribution Width 15.3 % (11.0-16.0); White Blood Count 11.3 X10*3/uL (4.8-10.8)
== END 2024-07-30 07:36 | disposition home or self-care (01) ==
LOC: HO.HMGCLDS 07:35
PROVIDERS: PCP Internal Medicine; Visit Provider Internal Medicine
DX: J06.9 Acute upper respiratory infection, unspecified (principal)
CPT/HCPCS: 36415; 85027

== ENCOUNTER 2024-07-31 10:03 | Outpatient (REF) | payer MEDICARE, SELFPAY ==
[2024-07-31 12:43] LABS: Erythrocyte Sedimentation Rate 34 MM/HR (0-20)
[2024-07-31 12:52] LABS: Alanine Aminotransferase 20 U/L (0-31); Albumin Level 3.7 g/dL (3.5-5.0); Anion Gap 12 (12-20); Aspartate Amino Transferase 30 U/L (5-31); Bilirubin Direct < 0.2 mg/dL (0.0-0.5); Bilirubin Total 0.2 mg/dL (0.0-1.0); Blood Urea Nitrogen 26 mg/dL (9-16); Calcium 10.2 mg/dL (8.4-10.2); Carbon Dioxide 27 mmol/L (22-29); Chloride 108 mmol/L (96-108); Cholesterol 137 mg/dL (<200); Estimated Glomerular Filt Rate 56; Glucose Random 95 mg/dL (60-115); HDL Cholesterol 49 mg/dL (>40); LDL Cholesterol Calculated 72 mg/dL (<100); Sodium 142 mmol/L (135-145); Total Protein 7.4 g/dL (6.5-8.0); Triglycerides 82 mg/dL (<150)
[2024-07-31 12:57] LABS: Thyroid Stimulating Hormone 1.03 uIU/mL (0.32-4.0)
[2024-07-31 12:58] LABS: Alkaline Phosphatase 61 U/L (39-117)
--- OUTSIDE RECORDS SUMMARY | 2024-07-31 14:34 | XMS_ITS | Clinical Summary ---
Author Organization [facility] Address [address] [place] [address] Care Team Providers Care Senior Commissary Agent Name Role Phone Unavailable Primary Care Provider [...] Description 06/21/2024 11:45 AM EST Office Visit [facility] [address] [phone] Nimesh Garcia MD Grillo, Kirsten [...] to complete this topic Insurance [facility] MGD MEDICARE
== END 2024-07-31 10:04 | disposition home or self-care (01) ==
LOC: HO.LAB 10:03
PROVIDERS: PCP Internal Medicine; Visit Provider Internal Medicine
DX: D64.9 Anemia, unspecified (principal); R63.4 Abnormal weight loss; Z13.6 Encounter for screening for cardiovascular disorders
CPT/HCPCS: 36415; 80048; 80061; 80076; 84443; 85652; 99212

== ENCOUNTER 2024-07-31 10:03 | Outpatient (AMB) | payer MEDICARE, SELFPAY ==
--- NOTE | 2024-07-31 10:47 | MHC.PC.OV ---
Vital Signs 07/31/24 10:49 Height 5 ft 4 in Weight 110 lb 6 oz BMI 18.9 BP 126/62 Blood Pressure Location Lt brachial Position Sitting Pulse 82 Pulse Source Pulse Oximeter Temp 97.8 F Temp Source Temporal Artery Scan Pulse Oximetry (%) 96 Oxygen Delivery Method Room Air Intake Visit Reasons: follow up Intake Note: Patient is here to follow up on HLD, Osteoarthritis, PVD. Glaze Wiper Required: No Sales Effectiveness Manager: Not Required per policy Accompanied by: Self / Same As Patient Allergies Iodinated Contrast Media [Contrast Dye] Allergy (Severe, Verified 07/31/24 10:48) Anaphylaxis oxycodone [Percocet] Allergy (Severe, Verified 07/31/24 10:48) Anaphylaxis acetaminophen [Percocet] Allergy (Intermediate, Verified 07/31/24 10:48) Rash latex Allergy (Intermediate, Verified 07/31/24 10:48) Rash Tobacco use date assessed: 07/31/24 Fall risk assessment: No Falls in past year Last assessed Fall Risk: 07/31/24 Dental Screening Dental Screen Date: 05/28/24 [facility] Medical History (Updated 07/31/24 @ 11:28 by Armond Dasilva MD) Anemia Abdominal cramping Diarrhea Pre-op evaluation Bronchitis Cellulitis of right forearm Viral syndrome Annual physical exam Pneumonia Essential hypertension Osteoarthritis Hyperlipidemia Breast cancer Peripheral vascular disease Surgical History H/O colonoscopy History of left cataract surgery Breast cancer, left breast Hx of right cataract extraction History of right knee surgery History of retinal detachment History of tonsillectomy Family History Mother No problems noted. Father No problems noted. Maternal Aunt Breast cancer Son Mental health disorder Social History Housing: House Are you a primary post acute care nurse practitioner to a significant other at home: No Do you presently have visiting nurse or other home services: No Alcohol intake: never Patient Tobacco Use Status: Never used Tobacco Tobacco use type: Cigarette e-Cigarette/Vaping Use: Never Used Second Hand Smoke Exposure: No service: No Current occupational status: retired Cognitive needs: No Hearing needs: Yes (hearing aide) Vision needs: Yes (glasses) Questionnaire Thrive Questionnaire Date Thrive assessed: 05/28/24 AUDIT C Alcohol Use Questionnaire (AUDIT-C) 3. How often do you have six or more drinks on one occasion?: Never Total Score: 0 CALVIN-7 AMB Questionnaire CALVIN-7 Date CAVLIN - 7 assessed: 05/28/24 Source: Developed by Drs. Jed Chaves, Gina Arriaza, Rick Prado and colleagues, with an educational claudine from [employer]. Physical exam (Primary Care) Vital Signs: Last Vital Signs Temp 97.8 F 07/31/24 10:49 Pulse 82 07/31/24 10:49 BP 126/62 07/31/24 10:49 Pulse Ox 96 07/31/24 10:49 Oxygen Delivery Method Room Air 07/31/24 10:49 BMI result Body Mass Index 18.9 Tobacco/Smoking Status: Tobacco use Status Tobacco use date assessed 07/31/24 07/31/24 11:01 Patient Tobacco Use Status Never used Tobacco 07/31/24 11:01 Tobacco use type Cigarette 07/31/24 11:01 e-Cigarette/Vaping Use Never Used 07/31/24 11:01 Thrive Assessment: Date of Thrive Assessment Date Thrive assessed 05/28/24 07/31/24 11:01 Coding Level of Care Code Est Pt Level 4 (62077) Complex EM visit Add On G2211 Diagnoses Anemia D64.9 Weight loss R63.4 Assessment & Plan Assessment & Plan (1) Anemia: Code(s): D64.9 - Anemia, unspecified Category: Medical Plan: Further bw has been ordered. Patient is very distraught. She is seeing the theater manager for her chronic cough. (2) Weight loss: Code(s): R63.4 - Abnormal weight loss Plan: CT abdomen and pelvis has been ordered. Plan History of Present Illness The patient is an 84-year-old female presenting with a chronic cough persisting since April post-COVID infection, unresponsive to multiple antibiotic courses and a prior prednisone regimen. The cough is characterized by productive morning episodes with phlegm expulsion. Recent interventions, including a scheduled asthma assessment, have offered limited resolution. She experiences concurrent chronic fatigue, indicated by low blood counts identified in recent blood work, and denies gastrointestinal bleeding or related symptoms. Nutritional intake is reportedly adequate, but fatigue remains substantial. Gastrointestinal symptoms include persistent abdominal pain and nausea, with previous ultrasound imaging yielding no significant findings. A CT scan has been suggested to further investigate potential underlying causes. Additionally, the patient struggles with emotional distress following her 's , influencing her perceived wellness and autonomy concerns about her disabled son. Social History - Family: The patient has recently lost her and is concerned about her son, who has gained some independence but has mental challenges. - Nutrition: Ensures regular meals, currently experiences decreased energy and uses substitutes for regular coffee. - Housing: Manages living arrangements alone but has support from her children's visits. - Functional Status: Reports significant exhaustion and weakness that limit daily activities. Review of Systems - Respiratory: Reports chronic cough with sputum. - Gastrointestinal: Reports abdominal pain and nausea; denies diarrhea. - General: Reports chronic fatigue, malaise, and dehydration. - Hematologic: Reports low blood counts. - Psychological: Reports feelings of distress related to bereavement. Physical Exam General: Cooperative and healthy appearing Nutritional Appearance: Well nourished Orientation/consciousness: Patient oriented x3 Limitations: No limitations Head: Normal to inspection General: Appearance normal, both eyes and all related structures Neck: Normal visual inspection Chest: Normal palpation of entire chest wall Respiratory: Chronic cough, phlegm production, and shortness of breath noted. Patient reports persistent cough since April after COVID-19 infection. ormal respiratory effort Neurology: Patient oriented x3, but reports feeling weak and exhausted. Results - Labs: Recent blood tests indicate low counts. - Tests: Chest X-ray has been conducted. - Diagnostics: Previous ultrasound of the abdomen shows no abnormalities. Plan Management of the patient's chronic cough involves using nebulizer treatments, cough medication, and the initiation of oral prednisone 5 mg. Continual monitoring and follow-up, including the planned asthma evaluation with Dr. Vigil, are essential components. An iron supplement regimen will be initiated to address the low hemoglobin levels contributing to fatigue, alongside advising increased oral hydration to combat dehydration. A CT scan will be scheduled to further investigate abdominal pain, given previous ultrasound results were normal. The patient is encouraged to consider emotional support resources due to concerns with bereavement. The follow-up plan will depend on the patient's symptomatic relief and diagnostic findings. Patient was informed and verbally consented to the use of an ambient scribe for clinic note documentation during this visit. Discussion Notes I discussed the continuing symptoms post-COVID, focusing on persistent coughing and potential options for improvement, including using nebulizers and prednisone. The benefits and risks of starting an iron supplement to address anemia were covered, emphasizing the importance of maintaining hydration and nutritional balance. I reviewed the necessity for further imaging given the unresolved gastrointestinal pain, ordering a CT scan to guide further investigation. The potential impact of bereavement on her mental health was acknowledged, and I emphasized the need for self-care strategies and support systems. Additionally, we spoke on managing dehydration through adequate water consumption and considering regular follow-up to monitor progress. Patient Instructions - Continue using nebulizer treatments and cough medication as prescribed. - Start iron supplementation daily as directed and available over the counter. - Drink more water to help with dehydration. - Ensure adequate nutritional intake. - Attend the scheduled appointment with Dr. Vigil for asthma testing. - Arrange a CT scan to further investigate stomach issues. - Consider emotional support options for coping with stress and bereavement. - Monitor symptoms and report any changes or concerns. Orders: Orders Basic Metabolic Panel 07/31/24 D64.9 - Anemia, unspecified Lipid Panel 07/31/24 D64.9 - Anemia, unspecified Liver Panel 07/31/24 D64.9 - Anemia, unspecified UA and rflx microscopic 07/31/24 D64.9 - Anemia, unspecified Erythrocyte Sedimentation Rate 07/31/24 D64.9 - Anemia, unspecified Thyroid Stimulating Hormone 07/31/24 D64.9 - Anemia, unspecified CT abdomen pelvis w IV con Today R63.4 - Abnormal weight loss
[2024-07-31 10:49] VITALS: BP 126/62; PULSE 82; TEMP 36.6; O2SAT 96; BMI 18.9
--- OUTSIDE RECORDS SUMMARY | 2024-07-31 11:49 | XMS_ITS | Clinical Summary ---
Author Organization [facility] Address [address] [place] [address] Care Team Providers Care Instant Powder Supervisor Name Role Phone Unavailable Primary Care Provider [...] Description 06/21/2024 11:45 AM EST Office Visit [facility] [address] [phone] Nimesh Garcia MD Grillo, Kirsten [...] patient's age to complete this topic Insurance [facility] MGD MEDICARE
== END 2024-07-31 11:30 | disposition home or self-care (01) ==
LOC: HO.HMCH 10:04
PROVIDERS: PCP Internal Medicine; Visit Provider Internal Medicine
DX: D64.9 Anemia, unspecified (principal); R63.4 Abnormal weight loss

== ENCOUNTER 2024-08-01 10:50 | Outpatient (REF) | payer MEDICARE, SELFPAY ==
--- OUTSIDE RECORDS SUMMARY | 2024-08-01 11:55 | XMS_ITS | Clinical Summary ---
Author Organization [facility] Address [address] [place] [address] Care Team Providers Care Putty Mixer And Applier Name Role Phone Unavailable Primary Care Provider [...] Description 06/21/2024 11:45 AM EST Office Visit [facility] [address] [phone] Nimesh Garcia MD Grillo, Kirsten [...] complete this topic Insurance [facility] MGD MEDICARE
--- NOTE | 2024-08-01 13:07 | MHC.AU.HA3 ---
Hearing Instrument Follow-Up- Binaural Date of Visit: 08/01/24 Left Ear: Make, Model, Color, Serial Number: Mau 3 Series [id number] [facility] SN: [id number] Color: Transparent Wireworker Repair Warranty: 12/06/2015 Wireworker Loss and Damage Warranty: 12/06/2015 [facility] Service Plan: exp Battery Size: 312 Type of Wax Guard: HearClear Dispensed By: [facility] Date of Fittin11/13/2013 Follow-Up Summary: Seen for hearing aid problem. Reports her hearing aid has sounded weak for about two weeks, notes the start up tone is weak too. Found small amount of wax in wax guard. Cleaned aid, changed wax guard, vacuumed chacha, ran through dehumidifier. Listening check positive, aid sounds loud and clear as does start up tone. Coby reports start up tone sounds weak still but my voice sounds good and clear. Otoscopy clear As. Reports recent head cold/ congestion. Recommended audio incase change in hearing has occurred- it has been six years. Recommendations: Recommendations Pt will request PO from PCP for hearing test. Diagnosis Code(s): Primary Diagnosis: H90.6 Mixed Hearing Loss, Bilateral Signature: Provider: Lucero Carrasco, [facility]
== END 2024-08-01 10:51 | disposition home or self-care (01) ==
LOC: HO.HAP 10:50
PROVIDERS: Visit Provider Internal Medicine
DX: Z46.1 Encounter for fitting and adjustment of hearing aid (principal); H90.6 Mixed conductive and sensorineural hearing loss, bilateral
CPT/HCPCS: 92592

== ENCOUNTER 2024-08-04 09:00 | Outpatient (REF) | payer MEDICARE, SELFPAY ==
--- OUTSIDE RECORDS SUMMARY | 2024-08-04 11:55 | XMS_ITS | Clinical Summary ---
Author Organization [facility] Address [address] [place] [address] Care Team Providers Care Power Plant Mechanic Name Role Phone Unavailable Primary Care Provider [...] Description 06/21/2024 11:45 AM EST Office Visit [facility] [address] [phone] Nimesh Garcia MD Grillo, Kirsten [...] patient's age to complete this topic Insurance [facility] MGD MEDICARE
[2024-08-04 13:25] LABS: Appearance Urine Clear; Color Urine Yellow; Glucose Urine UA Negative (Negative); Leukocyte Esterase Urine Negative (Negative); Nitrite Urine Negative (Negative); Specific Gravity - Urine 1.015 (1.005-1.025); Urine Blood Negative (Negative); Urine Ketones Negative (Negative); Urine Protein Negative (Neg-Trace)
== END 2024-08-04 09:01 | disposition home or self-care (01) ==
LOC: HO.HMGCLNP 09:00
PROVIDERS: PCP Internal Medicine; Visit Provider Internal Medicine
DX: D64.9 Anemia, unspecified (principal)
CPT/HCPCS: 81003

== ENCOUNTER 2024-08-06 13:05 | Outpatient (AMB) | payer MEDICARE, SELFPAY ==
--- NOTE | 2024-08-06 13:12 | MHC.OFFVIS ---
Vital Signs 08/06/24 13:15 Height 5 ft 4 in Weight 110 lb 3.698 oz BMI 18.9 BP 146/63 H Blood Pressure Location Lt brachial Position Sitting Pulse 76 Intake Visit Reasons: Follow up abdominal cramping Intake Note: Coby presents in the offie as a follow up for abdominal cramping CC: She states she is losing weight and she is still having pains in her stomach. Certain foods will cause the pains after eating. She went through trauma with her passing away. She is constipated due to her iron pills. Had COVID in Apr and she has not gotten rid of her cough and the clearing of the throat. She was referred to a vocational director and she has a breathing test coming up in August. During the day she does not have this issue but it is mostly in the morning when she first wakes up. Med Care Manager Required: No Allergies Iodinated Contrast Media [Contrast Dye] Allergy (Severe, Verified 08/06/24 13:16) Anaphylaxis oxycodone [Percocet] Allergy (Severe, Verified 08/06/24 13:16) Anaphylaxis acetaminophen [Percocet] Allergy (Intermediate, Verified 08/06/24 13:16) Rash latex Allergy (Intermediate, Verified 08/06/24 13:16) Rash HPI HPI Follow up abdominal cramping: Details: Assessment & Plan (1) Mass in neck: Code(s): R22.1 - Localized swelling, mass and lump, neck Category: Medical (2) Abdominal cramping: Code(s): R10.9 - Unspecified abdominal pain Category: Medical (3) Hives: Code(s): L50.9 - Urticaria, unspecified Category: Medical Plan She has had the epi pain only once waking her up at [facility]. She is taking the famotidine 10mg qam She is breaking out in hives, her will be having L4-L5 decompression surgery and severe back pain. Her dtr also breaks out in hive. Her Gi sx also seem to be driven by stress. She has bentyl if she needs it. RX hydrocortisone cream and I recommend moy as a non drowsy. ROV after holidays. US HEAD AND NECK 01/22/2024 FINDINGS: The left trapezius appears slightly larger than the right but no abnormal mass, adenopathy or fluid collections seen. US/US soft tiss head and/or neck IMPRESSION: No abnormality is seen. Ultrasound of the abdomen 05/10/2024 Findings: The visualized pancreas is normal. Small abdominal aortic plaques. Liver measures 14.8 cm length and demonstrates mildly coarse echotexture. There is no intrahepatic bile duct dilatation. The common duct is 4 mm in diameter. The gallbladder is normal. There is no sonographic Rose sign. The main portal vein is antegrade. The right kidney is 10.2 cm in length. The left kidney is 10.2 cm in length. A few simple left renal cysts measuring up to 15 mm. Otherwise unremarkable kidneys without hydronephrosis. The spleen is normal. Spleen measures 9.1 cm. No ascites. IMPRESSION: Mildly coarse hepatic echotexture may be incidental for patient's age or be secondary to underlying hepatic disease. Clinical +/-LFT correlation recommended. Medications: New hydrocortisone 2.5% 1 appl topical BID PRN 59 mL 0RF skin irritation L50.9 - Urticaria, unspecified Refilled famotidine 10 mg PO DAILY 30 tabs 6RF CORRESPONDENCE On 04/23/24 @ 11:08 Vero Sarmiento Wrote To LindaJuly patient lvm stating she still has not heard from scheduling regarding scan of her abdomen. Looks like she still needs the u/s of her abdomen. Centralized Scheduling called spoke to Giselle. APPT 05/08 AT 11:30, npo 8 hours before scan. Spoke to patient- reviewed date and time, Npo for u/s of abdomen . On 04/17/24 @ 14:31 Татьяна Mckeon Wrote To Jd Villegas No, this was for trapezius pain (shoulder/neck pain). 2 separate issues. On 04/04/24 @ 18:10 Jd Villegas Wrote To Linda July for the US soft tissue head and / or neck , was this a duplicate ? On 03/27/24 @ 12:14 Jd Villegas Wrote To LindaJuly July patient had the US SOFT TISSUE HEAD AND/OR NECK back on 01/23/24 ; however , pt missing the US of the abdomen that was scheduled for 01/23/24 apparently not performed yet. I called central scheduling, they will call patient for scheduling the US abdomen complete . On 01/25/24 @ 16:59 Jennifer Clements Wrote To Linda Ok you might have to put the order in again for some reason Centralized Scheduling is saying that it is cancelled in exp[place]. They also stated that she had the US soft tissue done on 01/22 so they want to know if you still want this? On 01/25/24 @ 15:45 Татьяна Mckeon Wrote To Jennifer Clements I do not know who cancel the order I am still looking for it. On 01/25/24 @ 15:38 Jennifer Clements Wrote To Linda CS wants to know if this patient is supposed to be scheduled for US abd complete because the order was cancelled in expanse? On 01/14/24 @ 10:25 Phoebe Hollis Wrote To Phoebe Hollis US not done, per order superintendent schools messages, they were unable to schedule patient after calling her x3 times requesting call back to schedule. Also, Yasmine left message requesting a call from patient to schedule US. Phoebe Hollis completed item. TODAY'S VISIT She continues on dicyclomine, hemorrhoid cream and famotidine which we gave a slight increase to at her last visit. she is having more pain with the famotidine at 20mg bid so she went back to her 10mg. This resolved the problems. This was a slightly different pain than what she is having now in that it was steady and constant. Now she is having intermittent cramping pain in the bilateral lower abdomen with bloating. Soda makes it worse, and some foods but she can 't ID which. She has not been taking the bentyl for this and I encourage her to do so. Her PCP ordered a CT, the US was negative. She also was started on oral iron. Her because shortly after his lumbar surgery he developed bladder and prostate cancer with mets to bone. She has lost weight and has been very stressed and fatigued as there were no ICU beds in this area and they sent him to [place], [place]. She also is having marble like stools moving her bowels several times a day but only small amounts. 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 Obviously if this does not work we can progress to something different. Apparently her daughter uses senna but the patient is of the opinion that that does not work so well for her. So at this time for GI regimen consists of Bentyl 20 mg up to 4 times a day, famotidine 10 mg a day, and potentially either milk of magnesia or MiraLax for her stooling. Return office visit next available [facility], [facility] Medical History (Updated 08/06/24 @ 16:41 by ALLISON العراقي) Heart burn Abdominal pain Breast cancer Low blood pressure reading URI, acute Diarrhea Encounter for colorectal cancer screening using Cologuard test Anemia Abdominal cramping Pre-op evaluation Bronchitis Cellulitis of right forearm Viral syndrome Annual physical exam Pneumonia Essential hypertension Osteoarthritis Hyperlipidemia Peripheral vascular disease Surgical History H/O colonoscopy History of left cataract surgery Breast cancer, left breast Hx of right cataract extraction History of right knee surgery History of retinal detachment History of tonsillectomy Family History Mother No problems noted. Father No problems noted. Maternal Aunt Breast cancer Son Mental health disorder Social History Housing: House Are you a primary spiritual care coordinator to a significant other at home: No Do you presently have visiting nurse or other home services: No Alcohol intake: never Patient Tobacco Use Status: Never used Tobacco Tobacco use type: Cigarette e-Cigarette/Vaping Use: Never Used Second Hand Smoke Exposure: No service: No Current occupational status: retired Cognitive needs: No Hearing needs: Yes (hearing aide) Vision needs: Yes (glasses) Review of Systems Const Reports fatigue, Denies fever(s), Denies night sweats, Denies poor appetite and Reports weight loss (About 7 lb do the stress of her 's illness) Eyes Details: glasses Reports requires corrective lenses ENT Reports Normal hearing present, Denies dental pain, Denies dysphagia, Denies hearing loss, Denies mouth pain, Denies odynophagia, Denies throat swelling, Denies tongue swelling and Reports other (Dentition adequate) Card Reports lightheadedness Resp Reports no additional complaints GI Details: Denies abdominal pain, Denies melena, Reports bloating, Denies hematochezia, Denies constipation, Reports GI cramping, Denies dysphagia, Denies excessive flatus, Denies early satiety, Reports heartburn, Denies diarrhea, Denies nausea, Denies odynophagia, Denies vomiting and Denies hematemesis Skin/Breast Denies pruritus, Denies lesions, Denies rash and Denies jaundice Neuro Reports Normal hearing present, Denies Abnormal speech present and Reports memory loss Psych Reports anxiety, Reports depression, Reports memory loss, Denies homicidal ideation and Denies suicidal ideation Endo Reports fatigue Aller/Immun Denies throat swelling and Denies tongue swelling Physical Exam Vital Signs: Last Vital Signs Pulse 76 08/06/24 13:15 BP 146/63 H 08/06/24 13:15 BMI result Body Mass Index 18.9 Const General: cooperative, no acute distress, well developed and well groomed Nutritional Appearance: average body habitus and well nourished Orientation/consciousness: oriented to person, oriented to place and oriented to time Limitations: No language barrier HEENT Head: Yes normocephalic and Yes atraumatic Eyes General: appearance normal, both eyes and all related structures Pupils: Equal, round and reactive pupils present Neck Neck: Yes normal visual inspection and Yes no lymphadenopathy Thyroid: Thyroid normal Resp Effort & Inspection: normal respiratory effort and able to speak in complete sentences Auscultation: clear to auscultation bilaterally Cardio Rate: regular rate Rhythm: regular rhythm Heart sounds: Normal, physiologic split S2 sound present Peripheral pulses: radial pulses present and posterior tibial pulses present GI Inspection: No distended and No Abdominal panniculus present Palpation (GI): Soft to palpation, nontender, no guarding, not rigid and No hepatosplenomegaly present Percussion: Yes normal to percussion Auscultation: normal bowel sounds Rectal Exam - Female: deferred Skin General skin exam: no rashes or lesions noted, turgor normal, skin not dry, no jaundice, No spider nevi and no striae Rashes: no rashes Nails: normal Neuro General: oriented to person, oriented to place and oriented to time Cranial nerves: Yes Equal, round and reactive pupils present and Yes Normal hearing present Speech: No Abnormal speech present Extrem General: Yes normal to inspection, No clubbing, No cyanosis and No edema Psych Appearance: grossly normal and well kempt Mental Status: mental status grossly normal Speech and movement: Normal speech and movement present Affect: normal affect Attitude: cooperative Thought process: Normal thought process present and not confabulating Thought content: Normal thought content present Insight: Limited insight present (Psych) Judgement: Limited judgement present (Psych) Assessment & Plan Assessment & Plan (1) Mass in neck: Code(s): R22.1 - Localized swelling, mass and lump, neck Category: Medical (2) Abdominal pain: Code(s): R10.9 - Unspecified abdominal pain Category: Medical (3) GERD (gastroesophageal reflux disease): Code(s): K21.9 - Gastro-esophageal reflux disease without esophagitis Category: Medical (4) Abdominal cramping: Code(s): R10.9 - Unspecified abdominal pain Category: Medical (5) Constipation: Code(s): K59.00 - Constipation, unspecified Category: Medical Plan She continues on dicyclomine, hemorrhoid cream and famotidine which we gave a slight increase to at her last visit. she is having more pain with the famotidine at 20mg bid so she went back to her 10mg. This resolved the problems. This was a slightly different pain than what she is having now in that it was steady and constant. Now she is having intermittent cramping pain in the bilateral lower abdomen with bloating. Soda makes it worse, and some foods but she can 't ID which. She has not been taking the bentyl for this and I encourage her to do so. Her PCP ordered a CT, the US was negative. She also was started on oral iron. Her because shortly after his lumbar surgery he developed bladder and prostate cancer with mets to bone. She has lost weight and has been very stressed and fatigued as there were no ICU beds in this area and they sent him to [place], [place]. She also is having marble like stools moving her bowels several times a day but only small amounts. 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 Obviously if this does not work we can progress to something different. Apparently her daughter uses senna but the patient is of the opinion that that does not work so well for her. So at this time for GI regimen consists of Bentyl 20 mg up to 4 times a day, famotidine 10 mg a day, and potentially either milk of magnesia or MiraLax for her stooling. Return office visit next available Medications: New dicyclomine 20 mg PO QID 120 tabs 3RF 30 days R10.9 - Unspecified abdominal pain Discontinued dicyclomine Discontinued Reason: Doctor's Order 10 mg PO BID 90 caps 0RF R10.9 - Unspecified abdominal pain famotidine Discontinued Reason: Doctor's Order 20 mg PO BID 6 weeks 84 tabs 0RF R12 - Heartburn Resumed famotidine 10 mg PO DAILY 30 tabs 6RF Coding Level of Care Code Est Pt Level 3 (13510) Diagnoses Mass in neck R22.1 Abdominal pain R10.9 GERD (gastroesophageal reflux disease) K21.9 Abdominal cramping R10.9 Constipation K59.00
[2024-08-06 13:15] VITALS: BP 146/63; PULSE 76; BMI 18.9
--- OUTSIDE RECORDS SUMMARY | 2024-08-06 15:29 | XMS_ITS | Clinical Summary ---
Author Organization [facility] Address [address] [place] [id number] Care Team Providers Care System Validation Engineer Name Role Phone Unavailable Primary Care Provider [...] Description 06/21/2024 11:45 AM EST Office Visit [facility] [address] [phone] Nimesh Garcia MD Grillo, Kirsten [...] patient's age to complete this topic Insurance [facility] MGD MEDICARE
== END 2024-08-06 13:54 | disposition home or self-care (01) ==
LOC: HO.HGI 13:06
PROVIDERS: PCP Internal Medicine; Visit Provider Nurse Practitioner
DX: R22.1 Localized swelling, mass and lump, neck (principal); R10.9 Unspecified abdominal pain; K21.9 Gastro-esophageal reflux disease without esophagitis; K59.00 Constipation, unspecified
CPT/HCPCS: 99213

== ENCOUNTER → 2024-08-06 13:05 | Outpatient (BNVA) | payer MEDICARE, SELFPAY | PROVIDERS: PCP Internal Medicine; Visit Provider Nurse Practitioner | DX: K59.00 Constipation, unspecified (principal); K21.9 Gastro-esophageal reflux disease without esophagitis; R22.1 Localized swelling, mass and lump, neck; R10.9 Unspecified abdominal pain | CPT/HCPCS: 99212 ==

== ENCOUNTER 2024-08-12 09:45 | Outpatient (AMB) | payer MEDICARE, SELFPAY ==
[2024-08-12 09:58] VITALS: BMI 18.9
--- NOTE | 2024-08-12 09:58 | A.OFFVIS_ITS ---
Vital Signs 08/12/24 09:58 Height 5 ft 4 in Weight 110 lb BMI 18.9 Intake Visit Reasons: Follow Up 05/21 Arterial US Intake Note: 1 yr follow up Arterial US 05/21/24, hx of Left LE angio 10/05/21. Pt states that since her US she has had Left calf cramps. States that she did not ambulate much for 3 weeks in June while was in the hospital. Mixing Pan Tender Required: No Accompanied by: Self / Same As Patient Allergies Iodinated Contrast Media [Contrast Dye] Allergy (Severe, Verified 08/12/24 10:04) Anaphylaxis oxycodone [Percocet] Allergy (Severe, Verified 08/12/24 10:04) Anaphylaxis acetaminophen [Percocet] Allergy (Intermediate, Verified 08/12/24 10:04) Rash latex Allergy (Intermediate, Verified 08/12/24 10:04) Rash HPI HPI Follow Up 05/21 Arterial US: Details: The patient is an 84-year-old female presenting for a routine follow-up regarding arterial health. Recently, while assisting her during his illness who has subsequently passed, she experienced leg discomfort resembling pre-surgical pain, connected to a lack of exercise and uncomfortable sleeping conditions. Overall wellness shifted as fatigue increased, influenced by an anemia diagnosis and subsequent iron supplementation. She reports maintaining activity levels and having engaged in frequent walks during her 's hospital stay, suggesting resilience in physical function. She reports she is currently doing much better and now presents for routine arterial surveillance follow-up. [facility] Medical History Heart burn Abdominal pain Breast cancer Low blood pressure reading URI, acute Diarrhea Encounter for colorectal cancer screening using Cologuard test Anemia Abdominal cramping Pre-op evaluation Bronchitis Cellulitis of right forearm Viral syndrome Annual physical exam Pneumonia Essential hypertension Osteoarthritis Hyperlipidemia Peripheral vascular disease Surgical History H/O colonoscopy History of left cataract surgery Breast cancer, left breast Hx of right cataract extraction History of right knee surgery History of retinal detachment History of tonsillectomy Family History Mother No problems noted. Father No problems noted. Maternal Aunt Breast cancer Son Mental health disorder Social History Housing: House Are you a primary director of career resources to a significant other at home: No Do you presently have visiting nurse or other home services: No Alcohol intake: never Patient Tobacco Use Status: Never used Tobacco Tobacco use type: Cigarette e-Cigarette/Vaping Use: Never Used Second Hand Smoke Exposure: No service: No Current occupational status: retired Cognitive needs: No Hearing needs: Yes (hearing aide) Vision needs: Yes (glasses) Review of Systems Const All systems reviewed & are unremarkable except as noted in HPI and below Reports no additional complaints ENT Reports Normal hearing present Card Denies chest pain, Denies chest pain at rest, Denies chest pain with activity and Denies pedal edema Resp Denies cough GI Denies abdominal pain Musc Denies abnormal gait, Denies muscle cramps and Denies radiating pain into limb Skin/Breast Denies skin ulcer and Denies wounds Neuro Reports Normal hearing present and Denies abnormal gait Psych Reports no additional complaints Physical Exam Vital Signs: BMI result Body Mass Index 18.9 Const General: cooperative, healthy appearing and comfortable Orientation/consciousness: oriented to person, oriented to place and oriented to time HEENT Head: Yes normal to inspection Neck Neck: Yes normal visual inspection Carotids: no bruits Chest Chest palpation & inspection: normal inspection of the chest Resp Effort & Inspection: normal respiratory effort and able to speak in complete sentences Auscultation: clear to auscultation bilaterally, no crackles, no rales, no rhonchi and no wheezes Cardio Other: Bilateral palpable DP pulse Rate: regular rate Rhythm: regular rhythm Heart sounds: S1 normal heart sound present and S2 normal heart sound present Bruits: no carotid bruits Peripheral pulses: Peripheral pulses 2+ throughout GI Inspection: Yes normal to inspection Skin Wounds: no wounds Hair: normal Neuro General: oriented to person, oriented to place and oriented to time Cranial nerves: Yes CN's II-XII intact bilaterally and Yes Normal hearing present Cognition (Neuro): normal cognition Motor exam (neuro): 5/5 motor strength present throughout Extrem Other: venous exam: No significant superficial varicosities or spider telangiectasias, minimal edema General: No clubbing, No cyanosis and No edema Psych Appearance: grossly normal Mental Status: mental status grossly normal Speech and movement: Normal speech and movement present Results Reviewed Results Reviewed: Noninvasive testing dated 05/21/2024 demonstrates DAVE on the right of 1.12 and on the left of 1.04. Written report and images were reviewed. Assessment & Plan Assessment & Plan (1) Peripheral vascular disease: Comment: 10/05/2021 - left popliteal atherectomy and plasty Code(s): I73.9 - Peripheral vascular disease, unspecified Category: Medical Plan: I discussed with the patient that her recent episode of calf discomfort was likely situational due to decreased mobility and sleeping arrangements during her ?s illness. Her DAVE results from May indicate good vascular health, a point of reassurance. I advised that continuous physical activity, complemented by her reported exercise goals, is beneficial for maintaining her circulation. We agreed on scheduling another ultrasound evaluation in one year to ensure ongoing stability of her arterial status. Thank you for allowing us to assist in her care. Orders: Orders US arterial duplex LE 1 Year I73.9 - Peripheral vascular disease, unspecified Coding Level of Care Code Est Pt Level 4 (14312) Complex EM visit Add On G2211 Diagnoses Peripheral vascular disease I73.9
--- OUTSIDE RECORDS SUMMARY | 2024-08-12 10:53 | XMS_ITS | Clinical Summary ---
Author Organization [facility] Address [address] [place] [id number] Care Team Providers Care Chemical Maker Name Role Phone Unavailable Primary Care Provider [...] Description 06/21/2024 11:45 AM EST Office Visit [facility] [address] [phone] Nimesh Garcia MD Grillo, Kirsten [...] patient's age to complete this topic Insurance [facility] MGD MEDICARE
== END 2024-08-12 10:21 | disposition home or self-care (01) ==
LOC: HO.HVS 09:45
PROVIDERS: PCP Internal Medicine; Visit Provider Surgery Vascular Surgery
DX: I73.9 Peripheral vascular disease, unspecified (principal)
CPT/HCPCS: 99214; G2211

== ENCOUNTER → 2024-08-12 09:45 | Outpatient (BNVA) | payer MEDICARE, SELFPAY | PROVIDERS: PCP Internal Medicine; Visit Provider Surgery Vascular Surgery | DX: I73.9 Peripheral vascular disease, unspecified (principal) | CPT/HCPCS: 99212 ==

== ENCOUNTER 2024-08-29 09:44 | Outpatient (REF) | payer MEDICARE, SELFPAY ==
--- NOTE | 2024-08-29 09:57 | PFT_ITS ---
Spirometry [] Lung Volumes [] Diffusion Capacity [] Methacholine Challenge [] Flow Volume Loops [] MVV [] MIP/MEP(Max inspiratory pressure/Max expiratory pressure) [] 6 Minute Walk Test [] ABG [] Interpretation [] MTDD
--- OUTSIDE RECORDS SUMMARY | 2024-08-29 10:04 | XMS_ITS | Clinical Summary ---
Author Organization [facility] Address [address] [place] [id number] Care Team Providers Care Crabbing Machine Operator Name Role Phone Unavailable Primary Care Provider [...] Description 06/21/2024 11:45 AM EST Office Visit [facility] [address] [phone] Nimesh Garcia MD Grillo, Kirsten [...] Patients (1 - 1-dose 75+ series) 2014 COVID-19 Vaccine ( - 2023-2 5 season) 2023 Influenza Vaccine 11/14/2024 Hepatitis B Vaccines Aged Out No long er eligible based on patient's age to complete this topic Insurance [facility] MGD MEDICARE
[2024-08-29 10:42] VITALS: PULSE 60; O2SAT 98
== END 2024-08-29 09:45 | disposition home or self-care (01) ==
LOC: HO.RESP 09:44
PROVIDERS: PCP Internal Medicine; Visit Provider Internal Medicine
DX: R05.3 Chronic cough (principal)
CPT/HCPCS: 94010; 94640; 94727; 94729

== ENCOUNTER → 2024-08-29 09:57 | Outpatient (BNV) | payer MEDICARE, SELFPAY | PROVIDERS: PCP Internal Medicine; Visit Provider Internal Medicine Pulmonary Disease | DX: R05.9 Cough, unspecified (principal) | CPT/HCPCS: 94060; 94727; 94729 ==

== ENCOUNTER 2024-09-01 10:30 | Outpatient (AMB) | payer MEDICARE, SELFPAY ==
[2024-09-01 10:48] VITALS: BP 112/72; PULSE 63; O2SAT 97; BMI 19.2
--- NOTE | 2024-09-01 10:48 | MHC.OFFVIS ---
Vital Signs 09/01/24 10:48 Height 5 ft 4 in Weight 112 lb BMI 19.2 BP 112/72 Blood Pressure Location Lt brachial Position Sitting Pulse 63 Pulse Source Pulse Oximeter Pulse Oximetry (%) 97 Oxygen Delivery Method Room Air Intake Visit Reasons: cough/short of breath Intake Note: pt is here for follow up of pft and states he is feeling better. 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 Allergies Iodinated Contrast Media [Contrast Dye] Allergy (Severe, Verified 09/01/24 11:05) Anaphylaxis oxycodone [Percocet] Allergy (Severe, Verified 09/01/24 11:05) Anaphylaxis acetaminophen [Percocet] Allergy (Intermediate, Verified 09/01/24 11:05) Rash latex Allergy (Intermediate, Verified 09/01/24 11:05) Rash Medication List - Last Reconciled 09/01/24 by Jo Ann Vigil MD albuterol sulfate 90 mcg/actuation 2 puffs inhalation Q4-6H PRN ascorbate calcium (vitamin C) 600 mg PO DAILY aspirin 81 mg PO DAILY biotin 5 mg PO DAILY cholecalciferol (vitamin D3) 25 mcg PO DAILY dicyclomine 20 mg PO QID 30 days famotidine 10 mg PO DAILY hydrocortisone 2.5% 1 appl topical BID PRN meclizine 25 mg PO DAILY PRN multivitamin 1 tab PO DAILY ondansetron 4 mg PO Q6-8H PRN simvastatin 20 mg PO BEDTIME spironolactone 50 mg PO DAILY zinc sulfate (Orazinc) 50 mg PO DAILY Do you need a note to return to daycare/school/sports/work: No HPI HPI cough/short of breath: Details: Back [facility] Coby is 84 years old, younger looking female, of thin build, physically very active, who comes to see me because of ongoing cough since April 2024. Normal has always been nonsmoker. She has no history of previous lung disease. She has been physically very active. 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 Her , Jose Antonio who used to be my patient, in June 2024. While he was being treated in the hospital in [place], Coby contracted COVID infection in April of this year. She recovered from the COVID infection uneventfully but continued to have cough. She feels like excessive mucus in her upper airways, and an urge to clear, especially in the morning hours, She gets intermittent cough, mostly dry, cough medicines such as benzonatate did not help much. Finally she was started on albuterol inhaler to use p.r.n., and she did notice some improvement with that. She denies any shortness of breath on exertion and denies any wheezing attacks. She has low-grade GERD symptoms controlled with small dose of famotidine. She does not have history of any specific allergies. Chest x-ray in April of this year showed somewhat hyperinflated lungs but no other significant abnormality CBC in May of this year was essentially normal there was no leukocytosis or eosinophilia. Today Coby comes for follow-up and claims that she has only very occasional cough, did not have to use albuterol inhaler. She is able to do her normal day-to-day activity without getting short of breath. She did have pulmonary function test to which will be described below. [facility] Medical History Heart burn Abdominal pain Breast cancer Low blood pressure reading URI, acute Diarrhea Encounter for colorectal cancer screening using Cologuard test Anemia Abdominal cramping Pre-op evaluation Bronchitis Cellulitis of right forearm Viral syndrome Annual physical exam Pneumonia Essential hypertension Osteoarthritis Hyperlipidemia Peripheral vascular disease Surgical History H/O colonoscopy History of left cataract surgery Breast cancer, left breast Hx of right cataract extraction History of right knee surgery History of retinal detachment History of tonsillectomy Family History Mother No problems noted. Father No problems noted. Maternal Aunt Breast cancer Son Mental health disorder Social History Housing: House Are you a primary care coordination manager to a significant other at home: No Do you presently have visiting nurse or other home services: No Alcohol intake: never Patient Tobacco Use Status: Never used Tobacco Tobacco use type: Cigarette e-Cigarette/Vaping Use: Never Used Second Hand Smoke Exposure: No service: No Current occupational status: retired Cognitive needs: No Hearing needs: Yes (hearing aide) Vision needs: Yes (glasses) Review of Systems Const All systems reviewed & are unremarkable except as noted in HPI and below Eyes Reports no additional complaints ENT Reports no additional complaints Card Denies chest pain, Denies rapid heart rate and Denies irregular heart rhythm Resp Reports as per HPI GI Reports dyspepsia and Reports heartburn (MILD ) Reports no additional complaints Skin/Breast Reports system reviewed and no additional complaints, except as documented Neuro Reports no additional complaints Psych Reports no additional complaints Endo Reports no additional complaints Mason/Lymph Reports no additional complaints Aller/Immun Reports no additional complaints Physical Exam Vital Signs: Last Vital Signs Pulse 63 09/01/24 10:48 BP 112/72 09/01/24 10:48 Pulse Ox 97 09/01/24 10:48 Oxygen Delivery Method Room Air 09/01/24 10:48 BMI result Body Mass Index 19.2 SHE IS OF A THIN BUILD, HEALTHY LOOKING FEMALE Const General: healthy appearing, comfortable, no acute distress, alert and awake Orientation/consciousness: patient oriented x3 HEENT Head: Yes normal to inspection General nose exam: No nasal polyps present and No nasal discharge present Face and sinus: Yes sinuses nontender Mouth: oropharynx normal Throat: Yes posterior oropharynx normal Eyes General: appearance normal, both eyes and all related structures Neck Neck: Yes normal visual inspection, Yes no lymphadenopathy, Yes trachea midline and Yes no JVD Thyroid: Thyroid normal Chest Chest palpation & inspection: normal inspection of the chest, normal palpation of entire chest wall and no tenderness Resp Other: PERCUSSION NOTE RESONANT, BREATH SOUNDS ARE SLIGHTLY DISTANT BUT EQUAL ON BOTH SIDES. NO WHEEZES RHONCHI OR CREPITATIONS ARE HEARD. Cardio Palpation: normal PMI Rate: regular rate Rhythm: regular rhythm Heart sounds: Gallop heart sound present and Murmur heart sound present Peripheral pulses: Peripheral pulses 2+ throughout GI Palpation (GI): Soft to palpation, nontender, No hepatosplenomegaly present and no masses Auscultation: normal bowel sounds Back/Spine/Pelvis Thoracic/Lumbar Spine: thoracic and lumbar spine normal to inspection Skin General skin exam: no rashes or lesions noted Neuro General: patient oriented x3 and no focal motor deficits Cranial nerves: Yes CN's II-XII intact bilaterally Extrem General: Yes normal to inspection, Yes no clubbing, cyanosis or edema and Yes no calf tenderness Psych Speech and movement: Normal speech and movement present Results Reviewed Results Reviewed: Pulmonary function test: . Results reviewed with her ALL FLOW VOLUMES ARE NORMAL. TOTAL LUNG CAPACITY NORMAL. DIFFUSION CAPACITY 67, SLIGHTLY DECREASED. Assessment & Plan Assessment & Plan (1) Chronic cough: Comment: PERSISTENT, ONGOING COUGH SINCE APRIL 2024, POST INFECTIOUS, WITH HYPER ACTIVE AIRWAYS, PROBABLY FOLLOWING COVID INFECTION. NOW RESOLVED ALMOST COMPLETELY. Code(s): R05.3 - Chronic cough Category: Medical Plan: REVIEWED THE RESULTS OF PULMONARY FUNCTION TEST WITH HER AND SHE IS REASSURED THAT BASICALLY HER LUNG FUNCTION IS NORMAL AT THIS TIME. MAY USE ALBUTEROL HFA 2 PUFFS Q 6 HOURS P.R.N. ONLY IF THERE IS A PERSISTENT BOUT OF COUGH IN FUTURE. Coding Level of Care Code Est Pt Level 3 (49970) Diagnoses Chronic cough R05.3
--- OUTSIDE RECORDS SUMMARY | 2024-09-01 11:10 | XMS_ITS | Clinical Summary ---
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
== END 2024-09-01 11:05 | disposition home or self-care (01) ==
LOC: HO.HPS 10:31
PROVIDERS: PCP Internal Medicine; Visit Provider Internal Medicine
DX: R05.3 Chronic cough (principal)
CPT/HCPCS: 99213

== ENCOUNTER → 2024-09-01 10:30 | Outpatient (BNVA) | payer MEDICARE, SELFPAY | PROVIDERS: PCP Internal Medicine; Visit Provider Internal Medicine | DX: R05.3 Chronic cough (principal); Z79.899 Other long term (current) drug therapy | CPT/HCPCS: 99212 ==

== ENCOUNTER 2024-09-04 09:15 | Outpatient (REF) | payer MEDICARE, SELFPAY ==
--- OUTSIDE RECORDS SUMMARY | 2024-09-04 09:28 | XMS_ITS | Clinical Summary ---
Author Organization [facility] Address [address] [place] [address] Care Team Providers Care Edge Runner Name Role Phone Unavailable Primary Care Provider [...] Description 06/21/2024 11:45 AM EST Office Visit [facility] [address] [phone] Nimesh Garcia MD Grillo, Kirsten [...] patient's age to complete this topic Insurance [facility] MGD MEDICARE
== END 2024-09-04 09:16 | disposition home or self-care (01) ==
LOC: HO.SH 09:15
PROVIDERS: Visit Provider Internal Medicine
DX: Z01.118 Encounter for examination of ears and hearing with other abnormal findings (principal); H90.A21 Sensorineural hearing loss, unilateral, right ear, with restricted hearing on the contralateral side; H90.A32 Mixed conductive and sensorineural hearing loss, unilateral, left ear with restricted hearing on the contralateral side
CPT/HCPCS: 92557

== ENCOUNTER 2024-09-04 10:13 | Outpatient (REF) | payer SELFPAY ==
--- OUTSIDE RECORDS SUMMARY | 2024-09-04 10:40 | XMS_ITS | Clinical Summary ---
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
== END 2024-09-04 10:14 | disposition home or self-care (01) ==
LOC: HO.SH 10:13
PROVIDERS: Visit Provider Internal Medicine
DX: Z01.118 Encounter for examination of ears and hearing with other abnormal findings (principal); H90.A21 Sensorineural hearing loss, unilateral, right ear, with restricted hearing on the contralateral side; H90.A32 Mixed conductive and sensorineural hearing loss, unilateral, left ear with restricted hearing on the contralateral side
CPT/HCPCS: 92592

== ENCOUNTER 2024-09-04 13:23 | Outpatient (REF) | payer SELFPAY ==
--- NOTE | ~2024-09-04 | CT_ITS ---
EXAMINATION: CT ABDOMEN AND PELVIS WITHOUT CONTRAST CLINICAL INFORMATION: Abnormal weight loss. COMPARISON: None available. TECHNIQUE: Multidetector volumetric imaging was performed from the superior aspect of the liver through the pubic symphysis. Sagittal and coronal reformatted images were obtained on the technologist's workstation. This CT examination was performed using dose optimization techniques as appropriate, variously including the following: *Automated exposure control *Adjustment of mA and/or kV according to patient size (this includes techniques or standardized protocols for targeted exams where dose is matched to indication/reason for exam; i.e. extremities or head) *Use of iterative reconstruction technique DLP: 313 mGy centimeter. FINDINGS: Inadequate evaluation of the intra-abdominal organs and vascular structures due to lack of IV contrast. LUNG BASES: Patchy pulmonary groundglass, lung bases. LIVER, GALLBLADDER, AND BILIARY TREE: Liver measures 15 cm. Sagittal nodular surface. No intrahepatic biliary ductal dilatation. 2 mm hypodensity, right hepatic lobe. No pericholecystic fluid collection or gallbladder wall thickening. No extrahepatic biliary ductal dilatation. PANCREAS: No peripancreatic fluid collection. No main pancreatic ductal dilatation. SPLEEN: 7 cm. ADRENAL GLANDS: No nodular lesion. KIDNEYS AND URETERS: No hydronephrosis. No nephrolithiasis. Less than 1 cm exophytic hypodensity posterior midportion left kidney. BLADDER: Fluid-filled nearly collapsed. GASTROINTESTINAL TRACT: Abundant stool. Abundant food contents in the stomach. Numerous diverticula, sigmoid colon. No intestinal obstruction pattern. Appendix is normal. Focal, ovoid shaped gas and fluid-filled abnormality in the distal ileal loops, right lower pelvis. No ascites. No pneumoperitoneum. No pneumatosis intestinalis. ABDOMINAL WALL: Small fat-containing umbilical hernia. LYMPH NODES: Not enlarged. VASCULAR: Mixed plaques throughout the abdominal aorta wall and iliac arteries without gross aneurysm. Calcified plaques in the femoral arteries. PELVIC VISCERA: Multifocal calcific nodules in the uterus. OSSEOUS STRUCTURES: Degenerative changes in the coxofemoral joints and symphysis joints. Multilevel thoracolumbar spondylosis. Grade 1 anterolisthesis L4-5 on a degenerative basis resulting in bilateral neuroforamina stenosis. Osteopenia versus the process. CT/CT abdomen pelvis wo IV con IMPRESSION: Diverticular disease. Atherosclerosis disease. Small fat-containing umbilical hernia. Grade 1 anterolisthesis L4-5 on a degenerative basis. Probable calcified uterine fibroids. Inadequate evaluation for detecting malignancy. Fleischner guidelines were followed. Electronically signed by: Ivan Ha MD 09/04/2024 03:28 PM EDT RP
== END 2024-09-04 13:24 | disposition home or self-care (01) ==
LOC: HO.CT 13:23
PROVIDERS: PCP Internal Medicine; Visit Provider Internal Medicine
DX: R63.4 Abnormal weight loss (principal)
CPT/HCPCS: 74176

== ENCOUNTER → 2024-09-04 13:25 | Outpatient (BNV) | payer SELFPAY | PROVIDERS: PCP Internal Medicine; Visit Provider Radiology Diagnostic Radiology | DX: K57.90 Diverticulosis of intestine, part unspecified, without perforation or abscess without bleeding (principal); K42.9 Umbilical hernia without obstruction or gangrene; I70.90 Unspecified atherosclerosis | CPT/HCPCS: 74176 ==

== ENCOUNTER 2024-09-10 08:53 | Outpatient (AMB) | payer MEDICARE, SELFPAY ==
--- OUTSIDE RECORDS SUMMARY | 2024-09-10 09:16 | XMS_ITS | Clinical Summary ---
Author Organization [facility] Address [address] [place] [address] Care Team Providers Care Door Opener Name Role Phone Unavailable Primary Care Provider [...] Description 06/21/2024 11:45 AM EST Office Visit [facility] [address] [phone] Nimesh Garcia MD Grillo, Kirsten [...] patient's age to complete this topic Insurance [facility] MGD MEDICARE
[2024-09-10 09:38] VITALS: BP 118/74; PULSE 66; TEMP 37.1; O2SAT 96; BMI 19.7
--- NOTE | 2024-09-10 09:38 | AM.OFFWIN_ITS ---
Intake Vital Signs 09/10/24 09:38 Height 5 ft 4 in Weight 115 lb BMI 19.7 BP 118/74 Blood Pressure Location Rt brachial Position Sitting Pulse 66 Pulse Source Pulse Oximeter Temp 98.7 F Temp Source Oral Pulse Oximetry (%) 96 Oxygen Delivery Method Room Air Intake Visit Reasons: EP-sore throat, chills, cough, body ache,sob Patient Tobacco Use Status: Never used Tobacco Allergies Iodinated Contrast Media [Contrast Dye] Allergy (Severe, Verified 09/10/24 09:39) Anaphylaxis oxycodone [Percocet] Allergy (Severe, Verified 09/10/24 09:39) Anaphylaxis acetaminophen [Percocet] Allergy (Intermediate, Verified 09/10/24 09:39) Rash latex Allergy (Intermediate, Verified 09/10/24 09:39) Rash Do you need a note to return to daycare/school/sports/work: No HPI HPI Comments History of Present Illness Details History - The patient is an 84-year-old female p resenting with persistent cough, congestion, and shortness of breath. - She has been experiencing these sympto ms for over a week, despite being on a Z-Tulio. - She denies having sinus pain or wheezi ng. - Her past medical history is significan t for COVID pneumonia and pneumonia. - Her brother, who has special needs, is also suffering from pneumonia and is currently being treated with Amoxicillin. - She tested negative for COVID-19. - Her current medication regimen include s gel pills, Tylenol, Flonase, and a ProAir inhaler. Physical Exam General: Cooperative, healthy appearing, comfortable and no acute distress Orientation/consciousness: Patient oriented x3 Limitations: No limitations Head: Normal to inspection Ears: Hearing grossly normal bilaterally, external ears normal and TM's normal bilaterally Nose: Normal external nose present, Normal nares present and No nasal discharge present Face and sinus: Normal facial exam and Yes sinuses nontender Mouth: Normal oral and palatal mucosa present and moist mucous membranes Throat: Yes tonsils normal, Yes uvula midline. Posterior oropharynx erythema Eyes: Appearance normal, both eyes and all related structures Neck: Normal visual inspection Respiratory: Clear to auscultation bilaterally. Normal respiratory effort, able to speak in complete sentences, not actively coughing, no respiratory distress, not tachypneic, no tripod positioning and no use of accessory muscles Cardiovascular: Regular rate and rhythm. Normal S1 and S2 Skin: No rashes or lesions noted Neuro: Patient oriented x3 Extremities: Normal to inspection and Yes no clubbing, cyanosis or edema PFSH Medical History Heart burn Abdominal pain Breast cancer Low blood pressure reading URI, acute Diarrhea Encounter for colorectal cancer screening using Cologuard test Anemia Abdominal cramping Pre-op evaluation Bronchitis Cellulitis of right forearm Viral syndrome Annual physical exam Pneumonia Essential hypertension Osteoarthritis Hyperlipidemia Peripheral vascular disease Surgical History H/O colonoscopy History of left cataract surgery Breast cancer, left breast Hx of right cataract extraction History of right knee surgery History of retinal detachment History of tonsillectomy Family History Mother No problems noted. Father No problems noted. Maternal Aunt Breast cancer Son Mental health disorder Social History Housing: House Are you a primary foster care social worker to a significant other at home: No Do you presently have visiting nurse or other home services: No Alcohol intake: never Patient Tobacco Use Status: Never used Tobacco Tobacco use type: Cigarette e-Cigarette/Vaping Use: Never Used Second Hand Smoke Exposure: No service: No Current occupational status: retired Cognitive needs: No Hearing needs: Yes (hearing aide) Vision needs: Yes (glasses) Review of Systems Const All systems reviewed & are unremarkable except as noted in HPI and below Physical Exam Vital Signs: Last Vital Signs Temp 98.7 F 09/10/24 09:38 Pulse 66 09/10/24 09:38 BP 118/74 09/10/24 09:38 Pulse Ox 96 09/10/24 09:38 Oxygen Delivery Method Room Air 09/10/24 09:38 BMI result Body Mass Index 19.7 Assessment & Plan Assessment & Plan (1) Lower respiratory infection (e.g., bronchitis, pneumonia, pneumonitis, pulmonitis): Code(s): J22 - Unspecified acute lower respiratory infection Plan: VSS, pt well appearing and PE unremarkable. I have prescribed Augmentin to address the patient's ongoing respiratory symptoms, as her condition has not improved with the current Z-Tulio regimen. This antibiotic will target bacterial pathogens that may not have been covered previously. The treatment will be taken twice daily for seven days. The patient is already using Flonase and a ProAir inhaler, which she should continue. I recommend she maintain adequate hydration and rest to aid in recovery. The patient's lung sounds are clear, and with the prescribed treatment, a chest X-ray is not deemed necessary at this time. She is advised to monitor her symptoms and return if there is no improvement in a few days. Patient was informed and verbally consented to the use of an ambient scribe for clinic note documentation during this visit Medications: New amoxicillin-pot clavulanate 875-125 mg 1 tab PO Q12H 14 tabs 0RF Coding Level of Care Code Est Pt Level 3 (63853) Diagnoses Lower respiratory infection (e.g., bronchitis, pneumonia, pneumonitis, pulmonitis) J22
== END 2024-09-10 10:23 | disposition home or self-care (01) ==
PROVIDERS: PCP Internal Medicine; Visit Provider Physician Assistant
DX: J22 Unspecified acute lower respiratory infection (principal)

== ENCOUNTER → 2024-09-10 08:53 | Outpatient (BNVA) | payer MEDICARE, SELFPAY | PROVIDERS: PCP Internal Medicine; Visit Provider Physician Assistant | DX: J22 Unspecified acute lower respiratory infection (principal) | CPT/HCPCS: 99212 ==

== ENCOUNTER 2024-09-11 08:36 | Outpatient (AMB) | payer MEDICARE, SELFPAY ==
--- NOTE | 2024-09-11 08:39 | MHC.PC.OV ---
Vital Signs 09/11/24 08:40 Height 5 ft 4 in Weight 111 lb 8 oz BMI 19.1 BP 130/74 Blood Pressure Location Lt brachial Position Sitting Pulse 54 Pulse Source Pulse Oximeter Temp 97.3 F Temp Source Temporal Artery Scan Pulse Oximetry (%) 97 Oxygen Delivery Method Room Air Intake Visit Reasons: CT results Intake Note: Patient is here to follow up on CT results. Complaint of possible bronchitis. Lead Generation Specialist Required: No Dye Can Operator: Not Required per policy Accompanied by: Self / Same As Patient Allergies Iodinated Contrast Media [Contrast Dye] Allergy (Severe, Verified 09/11/24 08:40) Anaphylaxis oxycodone [Percocet] Allergy (Severe, Verified 09/11/24 08:40) Anaphylaxis acetaminophen [Percocet] Allergy (Intermediate, Verified 09/11/24 08:40) Rash latex Allergy (Intermediate, Verified 09/11/24 08:40) Rash Tobacco use date assessed: 09/11/24 Fall risk assessment: No Falls in past year Last assessed Fall Risk: 09/11/24 Dental Screening Dental Screen Date: 05/28/24 [facility] Medical History Heart burn Abdominal pain Breast cancer Low blood pressure reading URI, acute Diarrhea Encounter for colorectal cancer screening using Cologuard test Anemia Abdominal cramping Pre-op evaluation Bronchitis Cellulitis of right forearm Viral syndrome Annual physical exam Pneumonia Essential hypertension Osteoarthritis Hyperlipidemia Peripheral vascular disease Surgical History H/O colonoscopy History of left cataract surgery Breast cancer, left breast Hx of right cataract extraction History of right knee surgery History of retinal detachment History of tonsillectomy Family History Mother No problems noted. Father No problems noted. Maternal Aunt Breast cancer Son Mental health disorder Social History Housing: House Are you a primary patient care nursing assistant to a significant other at home: No Do you presently have visiting nurse or other home services: No Alcohol intake: never Patient Tobacco Use Status: Never used Tobacco Tobacco use type: Cigarette e-Cigarette/Vaping Use: Never Used Second Hand Smoke Exposure: No service: No Current occupational status: retired Cognitive needs: No Hearing needs: Yes (hearing aide) Vision needs: Yes (glasses) Questionnaire Thrive Questionnaire Date Thrive assessed: 05/28/24 CALVIN-7 AMB Questionnaire CALVIN-7 Date CALVIN - 7 assessed: 05/28/24 Source: Developed by Drs. Jed Chaves, Gina Arriaza, Rick Prado and colleagues, with an educational claudine from [employer]. Physical exam (Primary Care) Vital Signs: Last Vital Signs Temp 97.3 F 09/11/24 08:40 Pulse 54 09/11/24 08:40 BP 130/74 09/11/24 08:40 Pulse Ox 97 09/11/24 08:40 Oxygen Delivery Method Room Air 09/11/24 08:40 BMI result Body Mass Index 19.1 Tobacco/Smoking Status: Tobacco use Status Tobacco use date assessed 09/11/24 09/11/24 08:46 Patient Tobacco Use Status Never used Tobacco 09/11/24 08:46 Tobacco use type Cigarette 09/11/24 08:46 e-Cigarette/Vaping Use Never Used 09/11/24 08:46 Thrive Assessment: Date of Thrive Assessment Date Thrive assessed 05/28/24 09/11/24 08:46 Coding Level of Care Code Est Pt Level 4 (78324) Complex EM visit Add On G2211 Diagnoses Cough R05.9 Assessment & Plan Assessment & Plan (1) Cough: Code(s): R05.9 - Cough, unspecified Plan: Patient has been to two walk in and two ER visits in the past five days. Advised her to continue the abx, prednisone added to the regimen. CT scan results discussed with her. BW repeated to follow up on anemia Plan History of Present Illness - The patient is an 84-year-old female presenting with a persistent cough and bronchitis. - She was diagnosed with acute bronchitis at [facility], treated with erythromycin, Flonase, and benzonatate. - Symptoms persisted, leading to another visit where she was prescribed Augmentin. - An emergency room visit confirmed bronchitis; EKG was normal, chest X-ray results are pending. - Reports the cough is severe, painful, and has led to a loss of appetite and 12-pound weight loss. - She has a history of effective treatment with prednisone for cough. - Notably, she has an allergy to contrast dye with potential for premedication. Social History - The patient has been caring for her son who had pneumonia, indicating familial caregiving responsibilities. - She reports a recent weight loss of 12 pounds and is attempting to regain weight through diet. Review of Systems - Respiratory: Reports persistent cough, diagnosed with acute bronchitis. - Constitutional: Reports weight loss of 12 pounds and decreased appetite. - Cardiovascular: Denies any abnormalities (EKG normal). - Allergic/Immunologic: Reports allergy to contrast dye. - Gastrointestinal: Reports decreased appetite. Physical Exam General: Cooperative and healthy appearing Nutritional Appearance: Well nourished Orientation/consciousness: Patient oriented x3 Limitations: No limitations Head: Normal to inspection General: Appearance normal, both eyes and all related structures Neck: Normal visual inspection Chest: Normal palpation of entire chest wall Respiratory: Acute bronchitis, patient reports severe cough and body pain, currently on erythromycin, Flonase, benzonatate, and Augmentin. Prednisone prescribed for inflammation. ormal respiratory effort Neurology: Patient oriented x3 Results - Tests and Diagnostics: EKG normal; chest X-ray performed, results pending. Plan 1. Acute Bronchitis - Initiate prednisone based on prior efficacy. - Continue inhalers for symptom control. 2. Anemia - Order follow-up blood work for anemia assessment. 3. Weight Loss - Encourage nutritional intake for weight gain. 4. Allergy To Contrast Dye - Premedication discussed for contrast dye use if needed. Discussion Notes I discussed with the patient the persistence of her bronchitis symptoms and the plan to initiate prednisone, as she previously found relief with this medication. We reviewed the potential side effects of prednisone, including increased appetite and mood changes, while emphasizing its anti-inflammatory benefits. I explained the importance of using her inhalers regularly to manage her symptoms. We also discussed the need for follow-up blood work to monitor her anemia, which will be scheduled at her convenience. Regarding her weight loss, I advised her to maintain a balanced diet to regain lost weight and to monitor her nutritional intake. . Patient Instructions - Take prednisone as prescribed and continue using inhalers regularly. - Schedule follow-up blood work for anemia monitoring. - Maintain a balanced diet to regain weight and monitor your nutritional intake. - Contact the office if symptoms worsen or new symptoms develop. - Discuss with your healthcare provider about premedication if imaging with contrast dye is required. Orders: Orders Basic Metabolic Panel Today R05.9 - Cough, unspecified Complete Blood Count no Diff Today R05.9 - Cough, unspecified Medications: New prednisone 60 mg (3 x 20 mg) PO DAILY 9 tabs 0RF
[2024-09-11 08:40] VITALS: BP 130/74; PULSE 54; TEMP 36.3; O2SAT 97; BMI 19.1
== END 2024-09-11 09:21 | disposition home or self-care (01) ==
LOC: HO.HMCH 08:37
PROVIDERS: PCP Internal Medicine; Visit Provider Internal Medicine
DX: R05.9 Cough, unspecified (principal)

== ENCOUNTER 2024-09-11 08:36 | Outpatient (REF) | payer MEDICARE, SELFPAY ==
[2024-09-11 10:17] LABS: Hematocrit 41.2 % (37.0-47.0); Hemoglobin 12.9 g/dl (12.0-16.0); Mean Corpuscular HGB Conc 31.3 g/dl (31.0-35.0); Mean Corpuscular Volume 82.9 fL (80.0-98.0); Mean Platelet Volume 11.7 fL (9.4-12.3); Platelet Count 155 X10*3/uL (160-400); Red Blood Count 4.97 X10*6/uL (4.20-5.50); Red Cell Distribution Width 20.3 % (11.0-16.0); White Blood Count 7.8 X10*3/uL (4.8-10.8)
[2024-09-11 10:40] LABS: Anion Gap 10 (12-20); Blood Urea Nitrogen 26 mg/dL (9-16); Calcium 9.3 mg/dL (8.4-10.2); Carbon Dioxide 27 mmol/L (22-29); Chloride 105 mmol/L (96-108); Estimated Glomerular Filt Rate 59; Glucose Random 101 mg/dL (60-115); Potassium 4.3 mmol/L (3.3-5.1); Sodium 138 mmol/L (135-145)
== END 2024-09-11 08:37 | disposition home or self-care (01) ==
LOC: HO.LAB 08:36
PROVIDERS: PCP Internal Medicine; Visit Provider Internal Medicine
DX: R05.9 Cough, unspecified (principal); J20.9 Acute bronchitis, unspecified; D64.9 Anemia, unspecified; R63.4 Abnormal weight loss; Z68.1 Body mass index [BMI] 19.9 or less, adult; Z91.041 Radiographic dye allergy status
CPT/HCPCS: 36415; 80048; 85027; 99212

== ENCOUNTER 2024-09-26 09:16 | Outpatient (AMB) | payer MEDICARE, SELFPAY ==
--- NOTE | 2024-09-26 09:20 | MHC.OFFWIV ---
Intake Vital Signs 09/26/24 09:21 Height 5 ft 4 in Weight 112 lb BMI 19.2 BP 126/78 Blood Pressure Location Lt brachial Position Sitting Pulse 91 Pulse Source Pulse Oximeter Temp 97.7 F Temp Source Oral Pulse Oximetry (%) 97 Oxygen Delivery Method Room Air Intake Visit Reasons: EP Severe back pain, pain when breathing mid back Intake Note: Pt presents to the office today for c/o severe mid back pain that started this morning. Pt states she is currently being treated for a UTI. Pt states when she takes deep breaths the pain is worse. Patient Tobacco Use Status: Never used Tobacco Allergies Iodinated Contrast Media [Contrast Dye] Allergy (Severe, Verified 09/26/24 09:23) Anaphylaxis oxycodone [Percocet] Allergy (Severe, Verified 09/26/24 09:23) Anaphylaxis acetaminophen [Percocet] Allergy (Intermediate, Verified 09/26/24 09:23) Rash latex Allergy (Intermediate, Verified 09/26/24 09:23) Rash HPI HPI Comments History of Present Illness Details History of Present Illness - The patient is an 84-year-old female presenting with acute back pain and continued UTI symptoms. - Severe mid-back pain began upon waking, worsened by movement and deep breathing, slightly relieved by Tylenol. - Dyspnea was noted, linked to the pain, limiting deep breaths. - Currently completing a course of antibiotics for a urinary tract infection, with the last dose due the next day. - Self-administered urine test from [facility] led to antibiotic prescription after telephone consultation last weekend, 6 days ago. Physical Exam General: Cooperative, healthy appearing, comfortable, no acute distress and well developed Orientation: Patient oriented x3 Limitations: No limitations Head: Normal to inspection Ears: Hearing grossly normal bilaterally Nose: Normal External nose present Face and sinus: Normal facial exam Eyes: Appearance normal, both eyes and all related structures Neck: Normal visual inspection and Yes full ROM Respiratory: Normal respiratory effort. Able to speak in complete sentences. Skin: No rashes or lesions noted Neuro: Patient oriented x3 Back/spine: + CVA right side Extremities: Normal to inspection [facility] Medical History Heart burn Abdominal pain Breast cancer Low blood pressure reading URI, acute Diarrhea Encounter for colorectal cancer screening using Cologuard test Anemia Abdominal cramping Pre-op evaluation Bronchitis Cellulitis of right forearm Viral syndrome Annual physical exam Pneumonia Essential hypertension Osteoarthritis Hyperlipidemia Peripheral vascular disease Surgical History H/O colonoscopy History of left cataract surgery Breast cancer, left breast Hx of right cataract extraction History of right knee surgery History of retinal detachment History of tonsillectomy Family History Mother No problems noted. Father No problems noted. Maternal Aunt Breast cancer Son Mental health disorder Social History Housing: House Are you a primary child care attendant school to a significant other at home: No Do you presently have visiting nurse or other home services: No Alcohol intake: never Patient Tobacco Use Status: Never used Tobacco Tobacco use type: Cigarette e-Cigarette/Vaping Use: Never Used Second Hand Smoke Exposure: No service: No Current occupational status: retired Cognitive needs: No Hearing needs: Yes (hearing aide) Vision needs: Yes (glasses) Review of Systems Const All systems reviewed & are unremarkable except as noted in HPI and below Physical Exam Vital Signs: Last Vital Signs Temp 97.7 F 09/26/24 09:21 Pulse 91 09/26/24 09:21 BP 126/78 09/26/24 09:21 Pulse Ox 97 09/26/24 09:21 Oxygen Delivery Method Room Air 09/26/24 09:21 BMI result Body Mass Index 19.2 Assessment & Plan Assessment & Plan (1) UTI symptoms: Code(s): R39.9 - Unspecified symptoms and signs involving the genitourinary system Plan: Plan - Patient unable to produce a urine sample keep during her visit so we sent her home with instructions to write the time of the urine sample and keep it refrigerated until she can return it to the lab to be processed. Gave her lab hours. - We will switch antibiotics as recent urine cultures show poor sensitivity to nitrofurantoin with E coli, the most common pathogen. It responds much better to a cephalosporin so I switched her to cefuroxime because she seems to still be symptomatic. - I do have a concern that this could be a kidney stone as she did had right-sided CVA tenderness. I reviewed signs and symptoms of a kidney stone with her and recommended if her pain gets worse over the weekend, she develops a fever, inability to urinate that she go to the emergency department to rule out a kidney stone. Patient was informed and verbally consented to the use of an ambient scribe for clinic note documentation during this visit. Orders: Orders UA CC w/rflx Micro + Cult Today R39.9 - Unspecified symptoms and signs involving the genitourinary system Medications: New cefuroxime axetil 500 mg PO Q12H 10 tabs 0RF Discontinued famotidine Discontinued Reason: None 10 mg PO DAILY 30 tabs 6RF Coding Level of Care Code Est Pt Level 3 (61634) Diagnoses UTI symptoms R39.9
[2024-09-26 09:21] VITALS: BP 126/78; PULSE 91; TEMP 36.5; O2SAT 97; BMI 19.2
--- OUTSIDE RECORDS SUMMARY | 2024-09-26 09:38 | XMS_ITS | Patient Health Record ---
[facility] Address [address] [place] [address] Care Team Providers Care Commercial Pest Control Representative Name Role Phone Yaritza RECINOS, [facility] Primary Care Provider Unavail able Myrtle Cloud Unavailable [phone] Allergies Allergen (clinical drug ingredient) Drug/Non Drug Allergy documented on EMR Reaction Allergy Type Onset Date Status acetaminophen / oxycodone Percocet Unknown Drug Allergy Active Adhesive Tape Unknown Drug Allergy Act verona Latex Unknown Drug Allergy Active Reason For Referral No Information Medications Medication SIG (Take, Route, Frequency, Duration) Notes Start Date End Date Status Vitamin D Active Magnesium Active Spironolactone 25 MG Orally Once a day Active Calcium Citrate Acti ve Vitamin C Active Probiotic Active Zgkiwby-Tbsrwh-Wb Chondr-MSM Active Biotin Active Anastrozole Active Lysine Active Aspirin Active Problems No Known Problems Plan Of Treatment No Information Insurance Providers Payer Name Payer Address Payer Phone Subscriber Number Group Number Insured Name Patient Relationship to Insured Coverage Start Date Coverage End Date [facility] [employer] [address] [place] [address] [phone] [id number] Coby Medrano Self - patient is the insured Medical (General) History Medical History History ICD Code Arthritis breast cancer High blood pressure Menieres disease Measles Chicken pox Surgical History Surgery Date(Month/Year) partial mastectomy 08/28 eye retina 2012 knee miniscus 2009
== END 2024-09-26 10:16 | disposition home or self-care (01) ==
PROVIDERS: PCP Internal Medicine; Visit Provider Physician Assistant
DX: R39.9 Unspecified symptoms and signs involving the genitourinary system (principal)

== ENCOUNTER 2024-09-26 09:16 | Outpatient (REF) | payer MEDICARE, SELFPAY | END 2024-09-26 09:17 | disposition home or self-care (01) | LOC: HO.LAB 09:16 | PROVIDERS: PCP Internal Medicine | DX: R39.9 Unspecified symptoms and signs involving the genitourinary system (principal) | CPT/HCPCS: 99212 ==

== ENCOUNTER 2024-09-26 11:31 | Outpatient (REF) | payer MEDICARE, SELFPAY ==
[2024-09-26 13:23] LABS: Appearance Urine Clear; Color Urine Dark Yellow; Glucose Urine UA Negative (Negative); Leukocyte Esterase Urine Negative (Negative); Nitrite Urine Negative (Negative); PH 5.5 (5.0-9.0); Specific Gravity - Urine >= 1.030 (1.005-1.025); Urine Blood Negative (Negative); Urine Ketones Trace mg/dL (Negative); Urine Protein Trace mg/dL (Neg-Trace)
== END 2024-09-26 11:32 | disposition home or self-care (01) ==
LOC: HO.HMGCLNP 11:31
PROVIDERS: PCP Internal Medicine; Visit Provider Physician Assistant
DX: R39.9 Unspecified symptoms and signs involving the genitourinary system (principal)
CPT/HCPCS: 81003

== ENCOUNTER 2024-10-02 09:08 | Outpatient (AMB) | payer MEDICARE, SELFPAY ==
--- NOTE | 2024-10-02 09:18 | A.OFFVIS_ITS ---
Vital Signs 10/02/24 09:23 Height 5 ft 4 in Weight 111 lb BMI 19.1 BP 136/58 L Blood Pressure Location Rt brachial Position Sitting Pulse 64 Pulse Source Pulse Oximeter Pulse Oximetry (%) 96 Oxygen Delivery Method Room Air Intake Visit Reasons: Lower abd pain , CIC, Gerd Intake Note: Est pt for mgmt of GERD + CIC. CC; Pt denies any GI sx or concerns at this time. Pt comments that she has stopped taking her dicyclomine temporarily as she did not feel that she needed it but wanted to check with Татьяна to make sure this was OK. Pt also wants to review recent CT scan ordered by PCP. Manager Behavioral Required: No Accompanied by: Self / Same As Patient Allergies Iodinated Contrast Media (Contrast Dye) Allergy (Severe, Verified 10/02/24 09:18) Anaphylaxis oxycodone (Percocet) Allergy (Severe, Verified 10/02/24 09:18) Anaphylaxis acetaminophen (Percocet) Allergy (Intermediate, Verified 10/02/24 09:18) Rash latex Allergy (Intermediate, Verified 10/02/24 09:18) Rash HPI HPI Lower abd pain , CIC, Gerd: Details: Assessment & Plan (1) Mass in neck: Code(s): R22.1 - Localized swelling, mass and lump, neck Category: Medical (2) Abdominal pain: Code(s): R10.9 - Unspecified abdominal pain Category: Medical (3) GERD (gastroesophageal reflux disease): Code(s): K21.9 - Gastro-esophageal reflux disease without esophagitis Category: Medical (4) Abdominal cramping: Code(s): R10.9 - Unspecified abdominal pain Category: Medical (5) Constipation: Code(s): K59.00 - Constipation, unspecified Category: Medical Plan She continues on dicyclomine, hemorrhoid cream and famotidine which we gave a slight increase to at her last visit. she is having more pain with the famotidine at 20mg bid so she went back to her 10mg. This resolved the problems. This was a slightly different pain than what she is having now in that it was steady and constant. Now she is having intermittent cramping pain in the bilateral lower abdomen with bloating. Soda makes it worse, and some foods but she can 't ID which. She has not been taking the bentyl for this and I encourage her to do so. Her PCP ordered a CT, the US was negative. She also was started on oral iron. Her because shortly after his lumbar surgery he developed bladder and prostate cancer with mets to bone. She has lost weight and has been very stressed and fatigued as there were no ICU beds in this area and they sent him to [place]. She also is having marble like stools moving her bowels several times a day but only small amounts. 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 Obviously if this does not work we can progress to something different. Apparently her daughter uses senna but the patient is of the opinion that that does not work so well for her. So at this time for GI regimen consists of Bentyl 20 mg up to 4 times a day, famotidine 10 mg a day, and potentially either milk of magnesia or MiraLax for her stooling. Return office visit next available Medications: New dicyclomine 20 mg PO QID 120 tabs 3RF 30 days R10.9 - Unspecified abdominal pain Discontinued dicyclomine Discontinued Reason: Doctor's Order 10 mg PO BID 90 caps 0RF R10.9 - Unspecified abdominal pain famotidine Discontinued Reason: Doctor's Order 20 mg PO BID 6 weeks 84 tabs 0RF R12 - Heartburn Resumed famotidine 10 mg PO DAILY [address] abdomen and pelvis without contrast 09/04/[address] Dasilva FINDINGS: Inadequate evaluation of the intra-abdominal organs and vascular structures due to lack of IV contrast. LUNG BASES: Patchy pulmonary groundglass, lung bases. LIVER, GALLBLADDER, AND BILIARY TREE: Liver measures 15 cm. Sagittal nodular surface. No intrahepatic biliary ductal dilatation. 2 mm hypodensity, right hepatic lobe. No pericholecystic fluid collection or gallbladder wall thickening. No extrahepatic biliary ductal dilatation. PANCREAS: No peripancreatic fluid collection. No main pancreatic ductal dilatation. SPLEEN: 7 cm. ADRENAL GLANDS: No nodular lesion. KIDNEYS AND URETERS: No hydronephrosis. No nephrolithiasis. Less than 1 cm exophytic hypodensity posterior midportion left kidney. BLADDER: Fluid-filled nearly collapsed. GASTROINTESTINAL TRACT: Abundant stool. Abundant food contents in the stomach. Numerous diverticula, sigmoid colon. No intestinal obstruction pattern. Appendix is normal. Focal, ovoid shaped gas and fluid-filled abnormality in the distal ileal loops, right lower pelvis. No ascites. No pneumoperitoneum. No pneumatosis intestinalis. ABDOMINAL WALL: Small fat-containing umbilical hernia. LYMPH NODES: Not enlarged. VASCULAR: Mixed plaques throughout the abdominal aorta wall and iliac arteries without gross aneurysm. Calcified plaques in the femoral arteries. PELVIC VISCERA: Multifocal calcific nodules in the uterus. OSSEOUS STRUCTURES: Degenerative changes in the coxofemoral joints and symphysis joints. Multilevel thoracolumbar spondylosis. Grade 1 anterolisthesis L4-5 on a degenerative basis resulting in bilateral neuroforamina stenosis. Osteopenia versus the process. CT/CT abdomen pelvis wo IV con IMPRESSION: Diverticular disease. Atherosclerosis disease. Small fat-containing umbilical hernia. Grade 1 anterolisthesis L4-5 on a degenerative basis. Probable calcified uterine fibroids. Inadequate evaluation for detecting malignancy. TODAY'S VISIT So at this time for GI regimen consists of Bentyl 20 mg up to 4 times a day, famotidine 10 mg a day, and potentially either milk of magnesia or MiraLax for her stooling. The bentyl helped to resolve the lower abd cramping, and she is also using the MIralax and moving her bowels better. Now she is not using it but she can keep it for prn use. She asks me to review the CT ordered by her PCP for her wt loss. She has lost about 6-8lbs since her became ill and then . She was living in the hospital room with him and between this and some expected geriatric sarcopenia this is not alarming unless she continues to drop. We discuss eating protein and wt resistance exercises to build muscle. ROV 3 mos. [facility], [facility] Medical History (Updated 10/02/24 @ 12:49 by ALLISON العراقي) Abnormal US (ultrasound) of abdomen Abdominal pain Heart burn Breast cancer Low blood pressure reading URI, acute Diarrhea Encounter for colorectal cancer screening using Cologuard test Anemia Abdominal cramping Pre-op evaluation Bronchitis Cellulitis of right forearm Viral syndrome Annual physical exam Pneumonia Essential hypertension Osteoarthritis Hyperlipidemia Peripheral vascular disease Surgical History H/O colonoscopy History of left cataract surgery Breast cancer, left breast Hx of right cataract extraction History of right knee surgery History of retinal detachment History of tonsillectomy Family History Mother No problems noted. Father No problems noted. Maternal Aunt Breast cancer Son Mental health disorder Social History Housing: House Are you a primary career information specialist to a significant other at home: No Do you presently have visiting nurse or other home services: No Alcohol intake: never Patient Tobacco Use Status: Never used Tobacco Tobacco use type: Cigarette e-Cigarette/Vaping Use: Never Used Second Hand Smoke Exposure: No service: No Current occupational status: retired Cognitive needs: No Hearing needs: Yes (hearing aide) Vision needs: Yes (glasses) Review of Systems Const Denies fatigue, Denies fever(s), Denies night sweats, Denies poor appetite and Reports weight loss Eyes Details: glasses Reports requires corrective lenses ENT Reports Normal hearing present, Denies dental pain, Denies dysphagia, Denies hearing loss, Denies mouth pain, Denies odynophagia, Denies throat swelling, Denies tongue swelling and Reports other (Dentition adequate) Card Reports no additional complaints Resp Reports no additional complaints GI Details: Denies abdominal pain, Denies melena, Denies bloating, Denies hematochezia, Reports constipation, Denies GI cramping, Denies dysphagia, Denies excessive flatus, Denies early satiety, Reports heartburn, Denies diarrhea, Denies nausea, Denies odynophagia, Denies vomiting and Denies hematemesis Skin/Breast Denies pruritus, Denies lesions, Denies rash and Denies jaundice Neuro Reports Normal hearing present and Denies Abnormal speech present Endo Denies fatigue Aller/Immun Denies throat swelling and Denies tongue swelling Physical Exam Vital Signs: Last Vital Signs Pulse 64 10/02/24 09:23 BP 136/58 L 10/02/24 09:23 Pulse Ox 96 10/02/24 09:23 Oxygen Delivery Method Room Air 10/02/24 09:23 BMI result Body Mass Index 19.1 Const General: cooperative, no acute distress, well developed and well groomed Nutritional Appearance: well nourished and thin Orientation/consciousness: oriented to person, oriented to place and oriented to time Limitations: No language barrier and wheelchair HEENT Head: Yes normocephalic and Yes atraumatic Eyes General: appearance normal, both eyes and all related structures Pupils: Equal, round and reactive pupils present Neck Neck: Yes normal visual inspection and Yes no lymphadenopathy Thyroid: Thyroid normal Resp Effort & Inspection: normal respiratory effort and able to speak in complete sentences Auscultation: clear to auscultation bilaterally Cardio Rate: regular rate Rhythm: regular rhythm Heart sounds: Normal, physiologic split S2 sound present Peripheral pulses: radial pulses present and posterior tibial pulses present GI Inspection: No distended and No Abdominal panniculus present Palpation (GI): Soft to palpation, nontender, no guarding, not rigid and No hepatosplenomegaly present Percussion: Yes normal to percussion Auscultation: normal bowel sounds Rectal Exam - Female: deferred Skin General skin exam: no rashes or lesions noted, turgor normal, skin not dry, no jaundice, No spider nevi and no striae Rashes: no rashes Nails: normal Neuro General: oriented to person, oriented to place and oriented to time Cranial nerves: Yes Equal, round and reactive pupils present and Yes Normal hearing present Speech: No Abnormal speech present Extrem General: Yes normal to inspection, No clubbing, No cyanosis and No edema Psych Appearance: grossly normal and well kempt Mental Status: mental status grossly normal Speech and movement: Normal speech and movement present Affect: normal affect Attitude: cooperative Thought process: Normal thought process present and not confabulating Thought content: Normal thought content present Insight: Good insight present (Psych) Judgement: Good judgement present (Psych) Assessment & Plan Assessment & Plan (1) GERD (gastroesophageal reflux disease): Code(s): K21.9 - Gastro-esophageal reflux disease without esophagitis Category: Medical (2) Abdominal cramping: Code(s): R10.9 - Unspecified abdominal pain Category: Medical (3) Constipation: Code(s): K59.00 - Constipation, unspecified Category: Medical (4) Weight loss: Code(s): R63.4 - Abnormal weight loss Category: Medical Plan So at this time for GI regimen consists of Bentyl 20 mg up to 4 times a day, famotidine 10 mg a day, and potentially either milk of magnesia or MiraLax for her stooling. The bentyl helped to resolve the lower abd cramping, and she is also using the MIralax and moving her bowels better. Now she is not using it but she can keep it for prn use. She asks me to review the CT ordered by her PCP for her wt loss. She has lost about 6-8lbs since her became ill and then . She was living in the hospital room with him and between this and some expected geriatric sarcopenia this is not alarming unless she continues to drop. We discuss eating protein and wt resistance exercises to build muscle. ROV 3 mos. Coding Level of Care Code Est Pt Level 3 (50970) Diagnoses GERD (gastroesophageal reflux disease) K21.9 Abdominal cramping R10.9 Constipation K59.00 Weight loss R63.4
[2024-10-02 09:23] VITALS: BP 136/58; PULSE 64; O2SAT 96; BMI 19.1
--- OUTSIDE RECORDS SUMMARY | 2024-10-02 09:44 | XMS_ITS | Patient Health Record ---
[facility] Address [address] [place] [address] Care Team Providers Care Incinerator Plant General Supervisor Name Role Phone Yaritza RECINOS, [facility] Primary Care Provider Unavail able Myrtle Cloud Unavailable [phone] Allergies Allergen (clinical drug ingredient) Drug/Non Drug [...] Acti ve Vitamin C Active Probiotic Active Ovsojeo-Bvemwo-Bb Chondr-MSM Active Biotin Active Anastrozole Active Lysine Active Aspirin Active Problems No Known Problems Plan Of Treatment No Information Insurance Providers Payer Name Payer Address Payer Phone Subscriber Number Group Number Insured Name Patient Relationship to Insured Coverage Start Date Coverage End Date [facility] [address] [place] [address] [phone] [id number] Coby Medrano Self - patient is the insured Medical (General) History Medical History History ICD Code Arthritis breast cancer High blood pressure Menieres disease Measles Chicken pox Surgical History Surgery Date(Month/Year) partial mastectomy 08/28 eye retina 2012 knee miniscus 2009
== END 2024-10-02 09:57 | disposition home or self-care (01) ==
LOC: HO.HGI 09:09
PROVIDERS: PCP Internal Medicine; Visit Provider Nurse Practitioner
DX: K21.9 Gastro-esophageal reflux disease without esophagitis (principal); R10.9 Unspecified abdominal pain; K59.00 Constipation, unspecified; R63.4 Abnormal weight loss
CPT/HCPCS: 99213

== ENCOUNTER → 2024-10-02 09:08 | Outpatient (BNVA) | payer MEDICARE, SELFPAY | PROVIDERS: PCP Internal Medicine; Visit Provider Nurse Practitioner | DX: R22.1 Localized swelling, mass and lump, neck (principal); R10.9 Unspecified abdominal pain; K21.9 Gastro-esophageal reflux disease without esophagitis; K59.00 Constipation, unspecified; R63.4 Abnormal weight loss | CPT/HCPCS: 99212 ==

== ENCOUNTER 2024-12-11 09:52 | Outpatient (AMB) | payer MEDICARE, SELFPAY ==
--- NOTE | 2024-12-11 09:54 | MHC.PC.OV ---
Vital Signs 12/11/24 09:55 Height 5 ft 4 in Weight 118 lb 6 oz BMI 20.3 BP 138/80 Blood Pressure Location Lt brachial Position Sitting Pulse 66 Pulse Source Pulse Oximeter Temp 97.1 F Temp Source Temporal Artery Scan Pulse Oximetry (%) 96 Oxygen Delivery Method Room Air Intake Visit Reasons: Follow Up - see comments Intake Note: Patient is here to follow up on GERD, HTN, HLD. Steaming Cabinet Tender Required: No Game Preserve Manager: Not Required per policy Accompanied by: Self / Same As Patient Allergies Iodinated Contrast Media (Contrast Dye) Allergy (Severe, Verified 12/11/24 09:55) Anaphylaxis oxycodone (Percocet) Allergy (Severe, Verified 12/11/24 09:55) Anaphylaxis acetaminophen (Percocet) Allergy (Intermediate, Verified 12/11/24 09:55) Rash latex Allergy (Intermediate, Verified 12/11/24 09:55) Rash Tobacco use date assessed: 12/11/24 Fall risk assessment: No Falls in past year Last assessed Fall Risk: 12/11/24 Dental Screening Dental Screen Date: 05/28/24 [facility] Medical History (Updated 10/02/24 @ 12:49 by ALLISON العراقي) Abnormal US (ultrasound) of abdomen Abdominal pain Heart burn Breast cancer Low blood pressure reading URI, acute Diarrhea Encounter for colorectal cancer screening using Cologuard test Anemia Abdominal cramping Pre-op evaluation Bronchitis Cellulitis of right forearm Viral syndrome Annual physical exam Pneumonia Essential hypertension Osteoarthritis Hyperlipidemia Peripheral vascular disease Surgical History H/O colonoscopy History of left cataract surgery Breast cancer, left breast Hx of right cataract extraction History of right knee surgery History of retinal detachment History of tonsillectomy Family History Mother No problems noted. Father No problems noted. Maternal Aunt Breast cancer Son Mental health disorder Social History Housing: House Are you a primary caregivers homecare to a significant other at home: No Do you presently have visiting nurse or other home services: No Alcohol intake: never Patient Tobacco Use Status: Never used Tobacco Tobacco use type: Cigarette e-Cigarette/Vaping Use: Never Used Second Hand Smoke Exposure: No service: No Current occupational status: retired Cognitive needs: No Hearing needs: Yes (hearing aide) Vision needs: Yes (glasses) Questionnaire PHQ-9 Over the last 2 weeks, how often have you been bothered by any of the following problems? 1. Little interest or pleasure in doing things: not at all 2. Feeling down, depressed, or hopeless: not at all 3. Trouble falling or staying asleep, or sleeping too much: not at all 4. Feeling tired or having little energy: not at all 5. Poor appetite or overeating: not at all 6. Feeling bad about yourself - or that you are a failure or have let yourself or your family down: not at all 7. Trouble concentrating on things, such as reading the newspaper or watching television: not at all 8. Moving or speaking so slowly that other people could have noticed. Or the opposite - being so fidgety or restless that you have been moving around a lot more than usual: not at all 9. Thoughts that you would be better off or of hurting yourself in some way: not at all Total score: 0 Depression Screening Interpretation: Negative Depression Screening Done: Yes Source: Developed by Drs. Jed Chaves, Gina Arriaza, Rick Prado and colleagues, with an educational claudine from [employer]. Thrive Questionnaire Date Thrive assessed: 05/28/24 I am a: Patient What is your living situation today?: I have a steady place to live Within the past 12 months, did the food you bought not last and you didn't have the money to get more?: Often true Within the past 12 months, did you worry whether your food would run out before you got money to buy more?: Never true Do you have trouble paying for medicines?: No Do you have trouble getting transportation to medical appointments?: No Do you have trouble paying your heating and electricity bill?: No Do you have trouble taking care of your child, family member or friend?: No Do you have trouble with day-to-day activities such as bathing, preparing meals, shopping, managing finances, etc.?: No Are you currently unemployed and looking for a job?: No Are you interested in more education?: No Please select the resources that you would like help with: None Currently or been in a relationship where the following occur: No concerns reported THRIVE Score: 1 AUDIT C Alcohol Use Questionnaire (AUDIT-C) 1. How often do you have a drink containing alcohol?: Never Total Score: 0 CALVIN-7 AMB Questionnaire CALVIN-7 Date CALVIN - 7 assessed: 05/28/24 Feeling nervous, anxious, or on edge: 0 = Not at all Not being able to stop or control worryin = Not at all Worrying too much about different things: 0 = Not at all Trouble relaxin = Not at all Being so restless that it is hard to sit still: 0 = Not at all Becoming easily annoyed or irritable: 0 = Not at all Feeling afraid as if something awful might happen: 0 = Not at all Total CALVIN-7 score (0-4 normal; 5-9 mild; 10-14 moderate; 15-21 severe): 0 Source: Developed by Drs. Jed Chaves, Gina Arriaza, Rick Prado and colleagues, with an educational claudine from [employer]. Physical exam (Primary Care) Vital Signs: Last Vital Signs Temp 97.1 F 12/11/24 09:55 Pulse 66 12/11/24 09:55 BP 138/80 12/11/24 09:55 Pulse Ox 96 12/11/24 09:55 Oxygen Delivery Method Room Air 12/11/24 09:55 BMI result Body Mass Index 20.3 Tobacco/Smoking Status: Tobacco use Status Tobacco use date assessed 12/11/24 12/11/24 10:01 Patient Tobacco Use Status Never used Tobacco 12/11/24 10:01 Tobacco use type Cigarette 12/11/24 10:01 e-Cigarette/Vaping Use Never Used 12/11/24 10:01 PHQ-9: PHQ-9 Score PHQ-9: Total score 0 12/11/24 10:01 Depression Screening Interpretation: Negative Thrive Assessment: Date of Thrive Assessment Date Thrive assessed 05/28/24 12/11/24 10:01 Currently or been in a relationship where the following occur: No concerns reported Coding Level of Care Code Est Pt Level 4 (00897) Complex EM visit Add On G2211 Diagnoses Osteoarthritis M19.90 Assessment & Plan Assessment & Plan (1) Osteoarthritis: Code(s): M19.90 - Unspecified osteoarthritis, unspecified site Category: Medical Plan: History of Present Illness - The patient is an 84-year-old female presenting with osteoarthritis pain management. - Osteoarthritis: Reports chronic pain in the shoulder and hips, worsened by movement such as sitting and standing. - Pain is persistent but not sharp, affecting daily activities. - Previously on diclofenac, discontinued due to gastrointestinal discomfort. - Currently taking acetaminophen (Tylenol) twice daily, insufficient for pain management. - Considering alternative medication similar to diclofenac at a low dose, to be taken intermittently. Social History - Family status: The patient is and responsible for taking care of her son. - Activity level: She goes out occasionally but is primarily occupied with caregiving responsibilities. Review of Systems - Musculoskeletal: Reports chronic pain in the shoulder and hips, worsened by movement. - Gastrointestinal: Denies current gastrointestinal symptoms but reports past discomfort with diclofenac. Physical Exam General: Cooperative and healthy appearing Nutritional Appearance: Well nourished Orientation/consciousness: Patient oriented x3 Limitations: No limitations Head: Normal to inspection General: Appearance normal, both eyes and all related structures Neck: Normal visual inspection Chest: Normal palpation of entire chest wall Respiratory: Normal respiratory effort Neurology: Patient oriented x3 Results Plan 1. Osteoarthritis - Consider trial of low-dose NSAID similar to diclofenac, to be taken intermittently, with monitoring for gastrointestinal and renal side effects. - Continue acetaminophen as needed for pain management. Discussion Notes We discussed the potential use of a low-dose NSAID similar to diclofenac for osteoarthritis pain, emphasizing the importance of monitoring for gastrointestinal and renal side effects. The patient was advised to continue acetaminophen as needed and to consider the NSAID intermittently if necessary. Patient Instructions - Take acetaminophen as needed for pain. - If considering NSAID, use the lowest dose intermittently and monitor for any side effects. Medications: New meloxicam 15 mg PO .Every other day 14 tabs 0RF 30 days
[2024-12-11 09:55] VITALS: BP 138/80; PULSE 66; TEMP 36.2; O2SAT 96; BMI 20.3
--- OUTSIDE RECORDS SUMMARY | 2024-12-11 11:00 | XMS_ITS | Patient Health Record ---
Author Organization [facility] Address [address] [place] [address] Care Team Providers Care Lumber Marker Name Role Phone Yaritza RECINOS, [facility] Primary Care Provider Unavail able Myrtle Cloud Unavailable [phone] Allergies Allergen (clinical drug ingredient) Drug/Non Drug [...] Acti ve Vitamin C Active Probiotic Active Avstvcm-Ixtqon-Tp Chondr-MSM Active Biotin Active Anastrozole Active Lysine Active Aspirin Active Problems No Known Problems Plan Of Treatment No Information Insurance Providers Payer Name Payer Address Payer Phone Subscriber Number Group Number Insured Name Patient Relationship to Insured Coverage Start Date Coverage End Date [facility] [address] [place] [address] [phone] [id number] Coby Medrano Self - patient is the insured Medical (General) History Medical History History ICD Code Arthritis breast cancer High blood pressure Menieres disease Measles Chicken pox Surgical History Surgery Date(Month/Year) partial mastectomy 08/28 eye retina 2012 knee miniscus 2009
--- OUTSIDE RECORDS SUMMARY | 2024-12-11 11:00 | XMS_ITS | Clinical Summary ---
Author Organization [facility] Address [address] [place] [phone] Phone Care Team Providers Care Rn Telehealth Name Role Phone Armond Dasilva MD Primary Care Provid er Allergies Active Allergy Reactions Criticality Noted Date Comments Latex Swelling 09/10/2024 Oxycodone-Acetaminophen Anaphylaxis High 09/10/2024 Medications No known medications Encounters Date Type Department Care Team Description 09/10/2024 5:38 PM EDT - 09/10/2024 7:36 PM EDT Emergency [facility] [address] [place] [address] Jimbo Javier MD Discharge Disposition: Home or Self Care from Last 3 Months Social History Tobacco Use Types Packs/Day Years Used Date Smoking Tobacco: Never Smokeless Tobacco: Never Tobacco Cessation:Counseling Given: Not Answered Alcohol Use Standard Drinks/Week Comments Not Currently 0 (1 standard drink = 0.6 oz pur e alcohol) Education Answer Date Recorded Are you interested in more education? Not on ai e 09/10/2024 Are you concerned about learning? Not on file 09/10/2024 No 09/10/2024 No 09/10/2024 Digital Access Answer Date Recorded No 09/10/2024 No 09/10/2024 Reliable internet access at home? Not on file 09/10/2024 Device with a working camera? Not on file Intimate Partner Violence Answer Date R ecorded Are you denied basic needs s uch as food, clothing, or medical care? No 09/10/2024 In the past 12 months have y ou been in a relationship with a person who hurts, threatens, or tries to control you? No 09/10/2024 Are you denied basic needs s uch as food, clothing, or medical care? No 09/10/2024 In the past 12 months have y ou been in a relationship with a person who hurts, threatens, or tries to control you? No 09/10/2024 Comments No Sex and Gender Information Value Date Recorded Sex Assigned at Female 09/10/2024 4:19 PM EDT Legal Sex Female 4:13 PM EDT Gender Identity Female 09/10/2024 4:19 PM EDT Sexual Orientation Straight 09/10/2024 4: 19 PM EDT Last Filed Vital Signs Vital Sign Reading Time Taken Comments Blood Pressure 140/74 09/10/2024 7:00 PM EDT Pulse 68 09/10/2024 7:00 PM EDT Temperature 37.2 C (99 F) 09/10/2024 7:00 PM EDT Respiratory Rate 22 09/10/2024 7:00 PM EDT Oxygen Saturation 95% 09/10/2024 7:00 PM EDT Inhaled Oxygen Concentration - - Weight 52 kg (114 lb 11.2 oz) 09/10/2024 4:39 PM EDT Height 162.6 cm (5' 4 ) 09/10/2024 4:39 PM EDT Body Mass Index 19.69 09/10/2024 4:39 PM EDT Plan of Treatment Health Maintenance Due Date Last Done Comments Adult Td,Tdap Booster 1940 DEPRESSION SCREENING 1951 PNEUMOCOCCAL VACCINES (50+ y ears) (1 of 1 - PCV) 1989 ZOSTER VACCINES (1 of 2) 1989 OSTEOPOROSIS SCREENING INITI AL (ONE-TIME) 01/04/2004 RSV VACCINE (1 - 1-dose 75+ series) 2014 COVID-19 VACCINE (2023-2 5 season) 2023 HEPATITIS A VACCINES Aged Out No long er eligible based on patient's age to complete this topic HIB VACCINES Aged Out No longer eligi ble based on patient's age to complete this topic MENINGOCOCCAL VACCINES (ACWY) Aged Out No longer eligible based on patient's age to complete this topic MENINGOCOCCAL VACCINES (B) Aged Out N o longer eligible based on patient's age to complete this topic Medical Devices Not on file Procedures Procedure Name Priority Date/Time Associated Diagnosis Comments ECG 12-LEAD STAT 09/10/2024 6:23 PM EDT XR CHEST PA AND LATERAL 2 VIEWS STAT 09/10/2024 5:08 PM EDT COVID PANDEMIC RESPIRATORY VIRAL ORDER (PRO) STAT 09/10/2024 4:53 PM EDT from Last 3 Months Results * ECG 12-LEAD (09/10/2024 6:23 PM EDT) Ventricular Rate EKG/MIN 89 BPM [facility] Atrial Rate [address] [facility] [address] Interval 168 ms [facility] QRS Duration 74 ms [facility] QT Interval 358 ms [facility] QTC Interval 435 ms [facility] P [place] 100 degrees [facility] R Wave [place] -1 degrees [facility] T Wave [place] 6 degrees [facility] 09/10/2024 6:23 PM EDT 09/11/2024 11:43 AM EDT Narrative [facility] - 09/11/2024 11:44 AM EDT Sinus rhythm with Premature atrial complexes Otherwise normal ECG No previous ECGs available Confirmed by Amandeep Romero ([id number]) on 09/11/2024 11:43:58 AM us Jimbo Javier MD ECG ORDERABLES Final Result [facility] * XR CHEST PA AND LATERAL 2 VIEWS (09/10/2024 5:08 PM EDT) Anatomical Region Laterality Modality Chest Computed Radiogr aphy 09/10/2024 5:32 PM EDT Impressions 09/10/2024 5:42 PM EDT No acute abnormality. Narrative 09/10/2024 5:42 PM EDT XR CHEST PA AND LATERAL 2 VIEWS Referring clinician's provided indication for this examination in Epic: Cough; Dyspnea (Shortness of Breath) COMPARISON: None FINDINGS: Devices/Tubes/Lines: None. Lungs: No focal consolidation or pulmonary edema. Pleura: No pleural effusion or pneumothorax. Heart/Mediastinum: Normal heart size. Bones/Soft Tissues: Degenerative changes of the thoracic spine. Procedure Note Kristina Carrillo MBBS - 09/10/2024 XR CHEST PA AND LATERAL 2 VIEWS Referring clinician's provided indication for this examination in Epic:Cough; Dyspnea (Shortness of Breath) COMPARISON: None FINDINGS: Devices/Tubes/Lines: None. Lungs: No focal consolidation or pulmonary edema. Pleura: No pleural effusion or pneumothorax. Heart/Mediastinum: Normal heart size. Bones/Soft Tissues: Degenerative changes of the thoracic spine. IMPRESSION: No acute abnormality. us Jimbo Javier MD IMG XR CHEST Final Result * COVID Pandemic Respiratory Viral Order (PRO) (09/10/2024 4:53 PM EDT) Test Ordered COVID, Flu has been ordered [facility] Specimen Source/Descriptio n NASOPHARYNGEAL SWAB [facility] Influenza A PCR Not Detected Not Detected [facility] Influenza B PCR Not Detected Not Detected [facility] SARS-CoV 2 (COVID-19) PCR Not Detected Not Detected [facility] Comment: SARS-CoV-2 not detected Negative results do not preclude SARS-CoV-2 infection and should not be used as the sole basis for patient management decisions. Negative results must be combined with clinical observations, patient history, and epidemiological information. Other (Nasopharyngeal swab) 09/10/2024 4:53 PM EDT 09/10/2024 4:57 PM EDT us Jimbo Javier MD BODY FLUIDS AND STOOLS ORDERABLE S Final Result [facility] [address] [place] [address] from Last 3 Months Insurance MEDICARE HMO REPLACEMENT MEDICARE HMO REPLACEMENT MEDICARE HMO REPLACEMENT MEDICARE HMO REPLACEMENT [employer] [place] [employer] H[employer] REPLACEMENT Member Subscriber Plan / Payer (Ef fective 2024-Present) Name:Coby Medrano Relation to Subscriber:Self Name:Coby Medrano Payer ID:Not on file Type:Medicare Address: [place] [id number] Care Teams Rn Telehealth Relationship Specialty Start Date End Date Armond Dasilva MD [address] [place] [phone] PCP - General Internal Medicine 09/10/24 Additional Source Comments The information contained in this document represents components of the legal health record. It is not the complete legal health record.[facility]
--- OUTSIDE RECORDS SUMMARY | 2024-12-11 11:00 | XMS_ITS ---
Author Name [facility] Organization Unknown History of Medication Use Medication Directions Dispensed Refills Start Date End Date Stat us predniSONE (DELTASONE) 10 MG tablet Take 40 mg (= 4 tablets) by mouth daily for 2 days, then 30 mg (= 3 tablets) daily for 2 days, then 20 mg (= 2 tablets) daily for 2 days, then 10 mg (= 1 tablet) daily for 2 days. Take with food. 06/21/2024 active simvastatin (ZOCOR) 20 MG tablet 06/17/2024 active famotidine (PEPCID) 20 MG tablet TAKE 1 TABLET BY MOUTH TWICE A DAY FOR 6 WEEKS 05/28/2024 active diclofenac enteric coated (VOLTAREN) 50 MG EC tablet 04/17/2024 active albuterol (PROVENTIL HFA; VENTOLIN HFA) 108 (90 Base) MCG/ACT inhaler TAKE 1 PUFF BY MOUTH 3 TIMES A DAY 04/14/2024 active spironolactone (ALDACTONE) 50 MG tablet 04/10/2024 active Allergies Allergen Reaction Severity Comment Documented Date Source Statu s OXYCODONE-ACETAMINOPHEN ANAPHYLAXIS 06/21/2024 [facility] active LATEX SWELLING [facility] Problems Problem Status Onset Date Problem Type Date of Resoluti on Source Bronchitis active EncounterDiagnosisAct CCT Encounters Encounter Type Encounter Reason Primary Diagnosis Location Date Ambulatory Cough Cough Overinteractive Media 06/21/2024 Care Team Organization Name Specialty Phone Email Start Date End Da te [facility] 06/25/2024 07/27/2024 [facility] 06/21/2024
--- OUTSIDE RECORDS SUMMARY | 2024-12-11 11:00 | XMS_ITS | Clinical Summary ---
Author Organization [facility] Address [address] [place] [address] Care Team Providers Care X Ray Consultant Name Role Phone Unavailable Primary Care Provider [...] Active Active Problems No known active problems Social History Tobacco Use Types Packs/Day Years [...] 84 06/21/2024 11:51 AM EST Temperature 36.7 C (98.1 F) 06/21/2024 11:51 AM EST Respiratory Rate 16 06/21/2024 11:51 AM EST [...] patient's age to complete this topic Insurance [facility] MEDICARE
== END 2024-12-11 10:34 | disposition home or self-care (01) ==
LOC: HO.HMCH 09:53
PROVIDERS: PCP Internal Medicine; Visit Provider Internal Medicine
DX: M19.90 Unspecified osteoarthritis, unspecified site (principal)

== ENCOUNTER → 2024-12-11 09:52 | Outpatient (BNVA) | payer MEDICARE, SELFPAY | PROVIDERS: PCP Internal Medicine; Visit Provider Internal Medicine | DX: K21.9 Gastro-esophageal reflux disease without esophagitis (principal); I10 Essential (primary) hypertension; E78.5 Hyperlipidemia, unspecified; M19.90 Unspecified osteoarthritis, unspecified site | CPT/HCPCS: 99212 ==

== ENCOUNTER 2025-04-02 11:09 | Outpatient (AMB) | payer MEDICARE, SELFPAY ==
[2025-04-02 11:22] VITALS: BP 106/74; PULSE 59; RESP 14; TEMP 36.8; O2SAT 96; BMI 20.9
--- NOTE | 2025-04-02 11:22 | MHC.PC.OV ---
Vital Signs 04/02/25 11:22 Height 5 ft 4 in Weight 122 lb BMI 20.9 BP 106/74 Blood Pressure Location Lt brachial Position Sitting Respiration 14 Pulse 59 Pulse Source Pulse Oximeter Temp 98.3 F Temp Source Tympanic Pulse Oximetry (%) 96 Oxygen Delivery Method Room Air Intake Visit Reasons: follow up 4 months Allergies Iodinated Contrast Media (Contrast Dye) Allergy (Severe, Verified 04/02/25 11:38) Anaphylaxis oxycodone (Percocet) Allergy (Severe, Verified 04/02/25 11:38) Anaphylaxis acetaminophen (Percocet) Allergy (Intermediate, Verified 04/02/25 11:38) Rash latex Allergy (Intermediate, Verified 04/02/25 11:38) Rash Medication List - Last Reconciled 04/02/25 by Armond Dasilva MD albuterol sulfate 90 mcg/actuation 2 puffs inhalation Q4-6H PRN ascorbate calcium (vitamin C) 600 mg PO DAILY aspirin 81 mg PO DAILY biotin 5 mg PO DAILY cholecalciferol (vitamin D3) 25 mcg PO DAILY dicyclomine 20 mg PO QID 30 days fluticasone propionate 50 mcg/actuation sprays intranasal hydrocortisone 2.5% APPLY TOPICALLY TO THE AFFECTED AREA UP TO 2 TIMES A DAY NEEDED FOR ITCHING. meclizine 25 mg PO DAILY PRN meloxicam 15 mg PO .Every other day 30 days multivitamin 1 tab PO DAILY ondansetron 4 mg PO Q6-8H PRN simvastatin 20 mg PO BEDTIME spironolactone 50 mg PO DAILY zinc sulfate (Orazinc) 50 mg PO DAILY Tobacco use date assessed: 12/11/24 Dental Screening Dental Screen Date: 05/28/24 HPI HPI Comments History of Present Illness Details History of Present Illness - The patient is an 85 year old female presenting with concerns of right hip pain and a new olfactory hallucination. - She reports that for the past two to three weeks, her right hip intermittently hurts and feels like it will not support her while walking. - She is concerned about possible arthritis or bone degeneration. - Approximately one week ago, the patient began smelling a faint odor of ammonia, which she compared to the smell of a cat's urine. - This prompted concern for a kidney issue, based on an internet search and advice from a family member who works in a laboratory. - The patient reports adherence to her prescribed medications, which include albuterol as needed, vitamin C, aspirin, biotin, vitamin D3, simvastatin, spironolactone, and a nasal spray as needed. - She has received her flu and COVID vaccinations. - She recently started a home exercise program, working out for a half-hour daily, which includes using a stair stepper for 100 repetitions, lifting 25-pound weights for 25 repetitions, and riding a stationary bike for 20 minutes. 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 - She reports being . - The patient recently started a daily 30-minute home exercise program consisting of a stair stepper, weight lifting, and a stationary bike. Results [facility] Medical History (Updated 10/02/24 @ 12:49 by ALLISON العراقي) Abnormal US (ultrasound) of abdomen Abdominal pain Heart burn Breast cancer Low blood pressure reading URI, acute Diarrhea Encounter for colorectal cancer screening using Cologuard test Anemia Abdominal cramping Pre-op evaluation Bronchitis Cellulitis of right forearm Viral syndrome Annual physical exam Pneumonia Essential hypertension Osteoarthritis Hyperlipidemia Peripheral vascular disease Surgical History H/O colonoscopy History of left cataract surgery Breast cancer, left breast Hx of right cataract extraction History of right knee surgery History of retinal detachment History of tonsillectomy Family History Mother No problems noted. Father No problems noted. Maternal Aunt Breast cancer Son Mental health disorder Social History Housing: House Are you a primary pediatric care coordinator to a significant other at home: No Do you presently have visiting nurse or other home services: No Alcohol intake: never Patient Tobacco Use Status: Never used Tobacco Tobacco use type: Cigarette e-Cigarette/Vaping Use: Never Used Second Hand Smoke Exposure: No service: No Current occupational status: retired Cognitive needs: No Hearing needs: Yes (hearing aide) Vision needs: Yes (glasses) Questionnaire PHQ-9 Over the last 2 weeks, how often have you been bothered by any of the following problems? 1. Little interest or pleasure in doing things: not at all 2. Feeling down, depressed, or hopeless: not at all 3. Trouble falling or staying asleep, or sleeping too much: several days 4. Feeling tired or having little energy: not at all 5. Poor appetite or overeating: not at all 6. Feeling bad about yourself - or that you are a failure or have let yourself or your family down: not at all 7. Trouble concentrating on things, such as reading the newspaper or watching television: not at all 8. Moving or speaking so slowly that other people could have noticed. Or the opposite - being so fidgety or restless that you have been moving around a lot more than usual: not at all 9. Thoughts that you would be better off or of hurting yourself in some way: not at all Total score: 1 02403 - PHQ-9 Billing: Yes Source: Developed by Drs. Jed Chaves, Gina Arriaza, Rick Prado and colleagues, with an educational claudine from [employer]. Thrive Questionnaire Date Thrive assessed: 04/02/25 I am a: Patient What is your living situation today?: I have a steady place to live Within the past 12 months, did the food you bought not last and you didn't have the money to get more?: Often true Within the past 12 months, did you worry whether your food would run out before you got money to buy more?: Never true Do you have trouble paying for medicines?: No Do you have trouble getting transportation to medical appointments?: No Do you have trouble paying your heating and electricity bill?: No Do you have trouble taking care of your child, family member or friend?: No Do you have trouble with day-to-day activities such as bathing, preparing meals, shopping, managing finances, etc.?: No Are you currently unemployed and looking for a job?: No Are you interested in more education?: No Please select the resources that you would like help with: None Currently or been in a relationship where the following occur: No concerns reported THRIVE Score: 1 CALVIN-7 AMB Questionnaire CALVIN-7 Date CALVIN - 7 assessed: 05/28/24 Source: Developed by Drs. Jed Chaves, Gina Arriaza, Rick Prado and colleagues, with an educational claudine from [employer]. Review of Systems Narrative Review of Systems - Olfactory: Reports phantosmia, described as a faint smell of ammonia, for the past week. - Musculoskeletal: Reports intermittent right hip pain and a sensation of the hip wanting to let go while walking, which started 2-3 weeks ago. - General: Reports feeling pretty good otherwise. Physical exam (Primary Care) Vital Signs: Last Vital Signs Temp 98.3 F 04/02/25 11:22 Pulse 59 04/02/25 11:22 Resp 14 04/02/25 11:22 BP 106/74 04/02/25 11:22 Pulse Ox 96 04/02/25 11:22 Oxygen Delivery Method Room Air 04/02/25 11:22 BMI result Body Mass Index 20.9 Tobacco/Smoking Status: Tobacco use Status Tobacco use date assessed 12/11/24 04/02/25 11:27 Patient Tobacco Use Status Never used Tobacco 04/02/25 11:27 Tobacco use type Cigarette 04/02/25 11:27 e-Cigarette/Vaping Use Never Used 04/02/25 11:27 PHQ-9: PHQ-9 Score PHQ-9: Total score 1 04/02/25 11:27 Thrive Assessment: Date of Thrive Assessment Date Thrive assessed 04/02/25 04/02/25 11:27 Currently or been in a relationship where the following occur: No concerns reported Narrative Physical Exam General: Cooperative and healthy appearing Nutritional Appearance: Well nourished Orientation/consciousness: Patient oriented x3 Limitations: No limitations Head: Normal to inspection General: Appearance normal, both eyes and all related structures Neck: Normal visual inspection Chest: Normal palpation of entire chest wall Respiratory: Normal respiratory effort Neurology: Patient oriented x3 Coding Level of Care Code Est Pt Level 4 (59165) Add On Problem Visit Only Diagnoses Osteoarthritis M19.90 Essential hypertension I10 Additional Codes PHQ-9 - 42468 - PHQ-9 Billing: Yes ([id number]) Assessment & Plan Assessment & Plan (1) Osteoarthritis: Code(s): M19.90 - Unspecified osteoarthritis, unspecified site Category: Medical (2) Essential hypertension: Code(s): I10 - Essential (primary) hypertension Category: Medical Plan Plan - An order for a pelvis X-ray will be placed to evaluate both hips in response to the patient's report of right hip pain and instability. - Routine blood work, including a kidney function panel, will be ordered to address the patient's concern of smelling ammonia, noting she is due for labs. - The patient will be contacted with the results of her X-ray and blood work. - The patient is to continue her current medications and home exercise routine. Discussion Notes I addressed the patient's two primary concerns: her recent onset of right hip pain and her experience of smelling ammonia. I explained that a pelvis X-ray would be ordered to investigate the cause of her hip symptoms. Regarding the smell of ammonia, I acknowledged her concern about kidney disease but stated that I did not believe it was the cause; however, I agreed to order blood work to check her kidney function as part of her routine labs. I informed her that the orders for the tests were already placed and I would call her with the results. The patient confirmed that all of her questions were answered. Patient Instructions - Please proceed to have a pelvis X-ray performed to check both of your hips. - Please get your blood drawn for routine testing, which will include a check of your kidney function. - Continue taking all your current medications as prescribed. - Our office will call you to discuss the results of your X-ray and blood tests. Orders: Orders XR pelvis min 3V Today M19.90 - Unspecified osteoarthritis, unspecified site Thyroid Stimulating Hormone Today I10 - Essential (primary) hypertension Liver Panel Today I10 - Essential (primary) hypertension UA and rflx microscopic Today I10 - Essential (primary) hypertension Basic Metabolic Panel Today I10 - Essential (primary) hypertension Complete Blood Count no Diff Today I10 - Essential (primary) hypertension Lipid Panel Today I10 - Essential (primary) hypertension
--- OUTSIDE RECORDS SUMMARY | 2025-04-02 14:38 | XMS_ITS | Patient Health Record ---
Author Organization [facility] Address [address] [place] [address] Care Team Providers Care Sales And Business Development Manager Name Role Phone Yaritza RECINOS, [facility] Primary Care Provider Unavail able Myrtle Cloud Unavailable [phone] Allergies Allergen (clinical drug ingredient) Drug/Non Drug [...] Acti ve Vitamin C Active Probiotic Active Twxmiac-Wqzuye-Qc Chondr-MSM Active Biotin Active Anastrozole Active Lysine Active Aspirin Active Problems No Known Problems Plan Of Treatment No Information Insurance Providers Payer Name Payer Address Payer Phone Subscriber Number Group Number Insured Name Patient Relationship to Insured Coverage Start Date Coverage End Date [facility] Others [address] [place] [address] [phone] [id number] Coby Medrano Self - patient is the insured Medical (General) History Medical History History ICD Code Arthritis breast cancer High blood pressure Menieres disease Measles Chicken pox Surgical History Surgery Date(Month/Year) partial mastectomy 08/28 eye retina 2012 knee miniscus 2009
--- OUTSIDE RECORDS SUMMARY | 2025-04-02 14:38 | XMS_ITS | Clinical Summary ---
Author Organization [facility] Address [address] [place] [phone] Phone Care Team Providers Care Plier Worker Name Role Phone Armond Dasilva MD Primary Care Provid er Allergies Active Allergy Reactions Criticality Noted Date Comments Latex Swelling 09/10/2024 Oxycodone-Acetaminophen Anaphylaxis High 09/10/2024 Medications No known medications Social History Tobacco Use Types Packs/Day Years [...] VACCINE (1 - 1-dose 75+ series) 2014 INFLUENZA VACCINE (#1) 2024 COVID-19 VACCINE ( - 2024-2 6 season) 2024 HEPATITIS A VACCINES Aged Out No long [...] this topic Medical Devices Not on file Insurance [employer] MEDICARE HMO REPLACEMENT MEDICARE HMO REPLACEMENT MEDICARE HMO REPLACEMENT MEDICARE HMO REPLACEMENT [employer] [place] MED[place] HMO REPLACEMENT [employer] [place] MED[employer] HMO REPLACEMENT Care Teams Plier Worker Relationship Specialty Start Date End Date Armond Dasilva MD [address] [place] [phone] PCP - General Internal Medicine 09/10/24 Additional Source Comments The information contained in this document represents components of the legal health record. It is not the complete legal health record.[facility]
--- OUTSIDE RECORDS SUMMARY | 2025-04-02 14:38 | XMS_ITS | Clinical Summary ---
Author Organization [facility] Address [address] [place] [address] Care Team Providers Care High School Assistant Principal Name Role Phone Unavailable Primary Care Provider [...] Health Maintenance Due Date Last Done Comments Advance Care Planning 1940 DTaP/Tdap/Td Vaccines (1 - Tdap) 1958 Pneumococcal Vaccines 50+ (1 of 1 - PCV) 1989 Zoster (Shingles) Vaccine (1 of 2) 1989 DXA Bone Density (Females,Ag es 65 and older) 01/04/2004 RSV Vaccine 50 years and old er and Patients (1 - 1-dose 75+ series) 2014 Influenza Vaccine 11/14/2024 COVID-19 Vaccine (1 - 2024-2 6 season) 2024 Hepatitis B Vaccines Aged Out No long er eligible based on patient's age to complete this topic Insurance [facility] MEDICARE
== END 2025-04-02 11:40 | disposition home or self-care (01) ==
LOC: HO.HMCH 11:10
PROVIDERS: PCP Internal Medicine; Visit Provider Internal Medicine
DX: M19.90 Unspecified osteoarthritis, unspecified site (principal); I10 Essential (primary) hypertension

== ENCOUNTER → 2025-04-02 11:09 | Outpatient (BNVA) | payer MEDICARE, SELFPAY | PROVIDERS: PCP Internal Medicine; Visit Provider Internal Medicine | DX: I10 Essential (primary) hypertension (principal); M25.551 Pain in right hip; R44.3 Hallucinations, unspecified | CPT/HCPCS: 96127; 99212 ==

== ENCOUNTER 2025-04-03 07:29 | Outpatient (REF) | payer MEDICARE, SELFPAY ==
--- NOTE | ~2025-04-03 | XR_ITS ---
EXAMINATION: XR PELVIS 3 OR MORE VIEWS HISTORY: M19.90 - Unspecified osteoarthritis, unspecified site COMPARISON: There are no prior studies available for comparison. FINDINGS: AP and bilateral oblique views of the pelvis is submitted. The bones are osteopenic. There is no evidence of fracture or dislocation. There is moderate to severe osteoarthritis of both hips, with joint space narrowing and osteophyte formation. The sacroiliac joint spaces are maintained. Calcifications in the pelvis may represent uterine fibroids. XR/XR pelvis min 3V IMPRESSION: Moderate to severe osteoarthritis of both hips. Electronically signed by: Jed Peralta MD 04/03/2025 02:00 PM HEATHER
--- OUTSIDE RECORDS SUMMARY | 2025-04-03 07:33 | XMS_ITS | Clinical Summary ---
Author Organization [facility] Address [address] [place] [phone] Phone Care Team Providers Care Animal Hospital Clerk Name Role Phone Armond Dasilva MD Primary [...] [place] H[place] REPLACEMENT Care Teams Animal Hospital Clerk Relationship Specialty Start Date End Date Armond Dasilva MD [address] [place] [phone] PCP - General Internal Medicine 09/10/24 Additional Source Comments The information contained in this document represents components of the legal health record. It is not the complete legal health record.[facility]
--- OUTSIDE RECORDS SUMMARY | 2025-04-03 07:33 | XMS_ITS | Clinical Summary ---
Author Organization [facility] Address [address] [place] [address] Care Team Providers Care Commercial Insurance Underwriter Name Role Phone Unavailable Primary Care Provider [...] patient's age to complete this topic Insurance [facility] MEDICARE
--- OUTSIDE RECORDS SUMMARY | 2025-04-03 07:33 | XMS_ITS | Patient Health Record ---
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 Name Role Phone Yaritza RECINOS, [facility] Primary Care Provider Unavail able Myrtle Cloud Unavailable [phone] Allergies Allergen (clinical drug ingredient) Drug/Non Drug [...] Acti ve Vitamin C Active Probiotic Active Ldpoogg-Ownwia-Zo Chondr-MSM Active Biotin Active Anastrozole Active Lysine Active Aspirin Active Problems No Known Problems Plan Of Treatment No Information Insurance Providers Payer Name Payer Address Payer Phone Subscriber Number Group Number Insured Name Patient Relationship to Insured Coverage Start Date Coverage End Date [facility] [address] [place] [address] [phone] [id number] Coby Medrano Self - patient is the insured Medical (General) History Medical History History ICD Code Arthritis breast cancer High blood pressure Menieres disease Measles Chicken pox Surgical History Surgery Date(Month/Year) partial mastectomy 08/28 eye retina 2012 knee miniscus 2009
[2025-04-03 10:17] LABS: Hematocrit 44.0 % (37.0-47.0); Hemoglobin 14.1 g/dl (12.0-16.0); Mean Corpuscular HGB Conc 32.0 g/dl (31.0-35.0); Mean Corpuscular Hemoglobin 29.6 pg (27.0-33.0); Mean Corpuscular Volume 92.2 fL (80.0-98.0); NRBC Abs Auto 0.000 X10*3/uL (0.0-0.012); NRBC Pct Auto 0.0 /100WBC (0.0-0.2); Platelet Count 151 X10*3/uL (160-400); Red Blood Count 4.77 X10*6/uL (4.20-5.50); White Blood Count 5.7 X10*3/uL (4.8-10.8)
[2025-04-03 10:55] LABS: Alanine Aminotransferase 24 U/L (0-31); Albumin Level 4.1 g/dL (3.5-5.0); Alkaline Phosphatase 58 U/L (39-117); Anion Gap 10 (12-20); Aspartate Amino Transferase 36 U/L (5-31); Blood Urea Nitrogen 18 mg/dL (9-16); Calcium 9.6 mg/dL (8.4-10.2); Carbon Dioxide 27 mmol/L (22-29); Chloride 107 mmol/L (96-108); Cholesterol 144 mg/dL (<200); Estimated Glomerular Filt Rate 57; HDL Cholesterol 57 mg/dL (>40); Potassium 3.9 mmol/L (3.3-5.1); Sodium 140 mmol/L (135-145); Thyroid Stimulating Hormone 1.10 uIU/mL (0.32-4.0); Total Protein 6.8 g/dL (6.5-8.0); Triglycerides 85 mg/dL (<150)
[2025-04-03 15:14] LABS: Appearance Urine Clear; Glucose Urine UA Negative (Negative); PH 5.5 (5.0-9.0); Specific Gravity - Urine >= 1.030 (1.005-1.025)
== END 2025-04-03 07:30 | disposition home or self-care (01) ==
LOC: HO.HMGCX 07:29
PROVIDERS: PCP Internal Medicine; Visit Provider Internal Medicine
DX: I10 Essential (primary) hypertension (principal); M16.0 Bilateral primary osteoarthritis of hip
CPT/HCPCS: 36415; 72190; 80048; 80061; 80076; 81003; 84443; 85027

== ENCOUNTER 2025-04-03 12:52 | Outpatient (REF) | payer SELFPAY ==
--- NOTE | 2025-04-03 13:20 | MHC.AU.HA3 ---
Hearing Instrument Follow-Up- Binaural Date of Visit: 04/03/25 Right Ear: none Left Ear: Make, Model, Color, Serial Number: [id number] 3 Series [id number] [facility] SN: [id number] Color: Transparent Electrical [employer]or Repair Warranty: 12/06/2015 [employer] Loss and Damage Warranty: 12/06/2015 [facility] Service Plan: exp Battery Size: 312 Type of Wax Guard: HearClear Dispensed By: [facility] Date of Fittin11/13/2013 Follow-Up Summary: Left hearing aid brought in for scheduled drop off service. Report of left aid weak. Cleaned aid, replaced wax guard, vacuumed microphone port, ran through dehumidifier. Listening check good. Coby reports sounds better but still not as loud as she would like. Otoscopy clear As. Increased overall gain two steps. Coby reports improvement. Recommendations: Recommendations: consult PCP for referral for updated audiogram, question change in hearing As. Diagnosis Code(s): Primary Diagnosis: H90.A21 SNHL, Unilateral Right Ear, W/Restricted Contralateral Hearing Secondary Diagnosis: H90.A32 Mixed HL, Unilateral, Left Ear, W/Restricted Contralateral Signature: Provider: Lucero Carrasco, [facility]
== END 2025-04-03 12:53 | disposition home or self-care (01) ==
LOC: HO.HAP 12:52
PROVIDERS: Visit Provider Internal Medicine
DX: Z46.1 Encounter for fitting and adjustment of hearing aid (principal); H90.A32 Mixed conductive and sensorineural hearing loss, unilateral, left ear with restricted hearing on the contralateral side; H90.A21 Sensorineural hearing loss, unilateral, right ear, with restricted hearing on the contralateral side
CPT/HCPCS: 92592

== ENCOUNTER → 2025-04-03 13:46 | Outpatient (BNV) | payer MEDICARE, SELFPAY | PROVIDERS: PCP Internal Medicine; Visit Provider Radiology Diagnostic Radiology | DX: M16.0 Bilateral primary osteoarthritis of hip (principal) | CPT/HCPCS: 72190 ==